=== PATIENT | female | born 1935 | race Caucasian/White ===

== ENCOUNTER → 2016-05-28 | Outpatient (CLI) | payer OTHER ==
[~2016-05-28] MED LIST: ACET1TAB84 PO; AMLH/550 PO; AMLH550 PO; ASPEC81 PO; ASPI-435 PO; CEPH500C2 PO; CHOL100010 PO; CHOL100027 PO; HYDR-5688 PO; LEVO150T9 PO; LISI40TA PO; LOSA50TA6 PO; MULT-506 PO; NRV/10 PO; SIMV20TA2 PO
--- NOTE | 2016-05-28 15:47 | DIAGNOSTIC IMAGING REPORT ---
AP STANDING VIEW BOTH KNEES; 3 VIEWS LEFT KNEE CLINICAL HISTORY: Chronic left knee pain. FINDINGS: An AP standing view of both knees with lateral, tunnel, and sunrise views of the left knee are compared to study dated 04/21/2013. The skeletal structures are osteopenic. No fracture is seen. There is moderate degenerative narrowing seen in the medial and patellofemoral compartments. Mild narrowing is identified in the lateral compartment. There is degenerative beaking of the tibial spine as well as small patellar enthesophytes. No osteochondral defect is identified on the tunnel image. There is a left knee joint effusion with mild surrounding soft tissue edema. Survey images of the right knee on the frontal view show degenerative joint space narrowing in the medial and lateral compartments, with marginal osteophytes and degenerative beaking of the tibial spine. IMPRESSION: 1. Joint effusion and soft tissue swelling. No acute bony abnormality is seen in the left knee. 2. Osteopenia and arthritic change as above. This is similar in appearance to the 04/21/2013 examination. Electronically signed by: Denis Quiros M.D. 05/28/2016 3:45 PM Dictated Date/Time: 05/28/2016 3:43 PM
== END | disposition home or self-care (01) ==
LOC: C.RDSM 13:53
PROVIDERS: ATTEND Physical Medicine & Rehabilitation Sports Medicine
DX: M25.562 Pain in left knee (principal); M25.462 Effusion, left knee; M85.80 Other specified disorders of bone density and structure, unspecified site; M79.89 Other specified soft tissue disorders

== ENCOUNTER 2016-09-03 14:29 | Observation (INO) | payer OTHER ==
[~2016-09-03] VITALS: Ht 162.6 cm; Wt 82.2 kg
[~2016-09-03 14:29] MED LIST changes: -ACET1TAB84 PO; -AMLH/550 PO; -ASPI-435 PO; -CEPH500C2 PO; -CHOL100027 PO; -LEVO150T9 PO; -LOSA50TA6 PO; -MULT-506 PO
[2016-09-03] MEDS ORDERED: ASPIRIN 324 MG CHEW PO STA (14:43)
[2016-09-03] MEDS ORDERED: ASPI-435 PO (14:46)
[2016-09-03] MEDS ORDERED: AMLH/550 PO (14:47)
[2016-09-03] MEDS ORDERED: CHOL100027 PO (14:47)
[2016-09-03 14:52] LABS: BASO % 0.2 %; BASO ABS # 0.02 K/uL (0-0.2); COMPLETE YES; EOS % 2.1 %; HEMATOCRIT 42.6 % (37-47); IG% 0.3 %; LYMPH ABS # 2.93 K/uL (1.2-3.4); MEAN CELL VOLUME 100.5 fL (80-100); MEAN CORPUSCULAR HEMOGLOBIN 34.2 pg (25-34); MEAN PLATELET VOLUME 9.8 fL (7.4-10.4); MONO % 4.5 %; NEUT % 58.9 %; PLATELET COUNT 290 K/uL (130-400); RED BLOOD COUNT 4.24 M/uL (4.2-5.4); WHITE BLOOD COUNT 8.63 K/uL (4.8-10.8)
[2016-09-03 15:02] LABS: PROTHROMBIN TIME (PATIENT) 10.6 SECONDS (9.0-12.0)
--- NOTE | 2016-09-03 15:03 | DIAGNOSTIC IMAGING REPORT ---
CHEST ONE VIEW PORTABLE CLINICAL HISTORY: Atypical chest pain COMPARISON STUDY: 05/24/2010 FINDINGS: The cardiac and mediastinal contours are normal. There is no evidence of focal pulmonary consolidation. There is no evidence of failure. No pleural effusions are visualized.[ IMPRESSION: No active disease in the chest. Electronically signed by: Eze Su M.D. 09/03/2016 3:01 PM Dictated Date/Time: 09/03/2016 3:01 PM
[2016-09-03] MEDS ORDERED: ACET1TAB84 PO (15:09)
[2016-09-03 15:12] LABS: BUN/CREATININE RATIO 22.1 (10-20); CALCIUM 9.6 mg/dl (8.5-10.1); CREATININE 0.83 mg/dl (0.60-1.20); POTASSIUM 3.1 mmol/L (3.5-5.1)
[2016-09-03] MEDS ORDERED: LEVO150T9 PO (15:16)
--- NOTE | 2016-09-03 15:28 | EMERGENCY ROOM VISIT NOTE ---
History Report prepared by Liza: Hetal Dawson Under the Supervision of: Dr. Jin Fox M.D. 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 Denies sob, nausea, lightheadedness or diaphoresis. Denies cardiac hx. Pain now resolved. History of Present Illness The patient is an 80 year old female who presents to the Emergency Room with complaints of resolved chest pain that began approximately 45 minutes prior to arrival. She describes her pain as a tightness. The patient states that her chest pain radiated her back and up into her neck. She denies any pain radiating down her left arm. The patient denies any history of heart problems or previous LA. She states that the chest pain episode lasted approximately 4- 5 minutes. The patient denies any shortness of breath, diaphoresis, or nausea. She states that she feels weak today, but attributes that to not eating today. The patient associates increased ankle edema with her symptoms today. She notes a history of hypertension and high cholesterol, but denies any history of diabetes. The patient denies taking any aspirin today for her symptoms. Source of History: patient Onset: 45 minutes prior to arrival Position: chest Quality: other (tightness) Timing: resolved Associated Symptoms: + weakness, No SOB, No diaphoresis, No nausea Note: Associated Symptoms: increased ankle edema. Review of Systems See HPI for pertinent positives & negatives. A total of 10 systems reviewed and were otherwise negative. Past Medical & Surgical Medical Problems: (1) High cholesterol (2) Hypertension Family History Patient reports no known family medical history. Social History Smoking Status: Never Smoker Alcohol Use: occasionally Drug Use: none Marital Status: Housing Status: lives with significant other Current/Historical Medications Scheduled Amiloride/Hctz (Amiloride/Hydrochlorothia 5-50 mg), 1 TAB PO DAILY Amlodipine Besylate (Amlodipine Besylate), 10 MG PO DAILY Aspirin (Aspirin 81), 81 MG PO DAILY Cholecalciferol (Vitamin D 1000 Unit), 1,000 INTER.UNIT PO DAILY Levothyroxine Sodium (Levothyroxine Sodium), 1 TAB PO DAILY Multivitamin (Multivitamin), 1 TAB PO DAILY Simvastatin (Zocor), 20 MG PO QPM Scheduled PRN Acetaminophen (Tylenol Arthritis Ext Rel), 650 MG PO Q8H PRN for Pain Allergies Coded Allergies: No Known Allergies (Unverified , 04/30/16) Physical Exam Vital Signs Date Time Temp Pulse Resp B/P Pulse Ox O2 Delivery O2 Flow Rate FiO2 09/03/16 14:55 76 09/03/16 14:52 98 Room Air 09/03/16 14:48 97 Room Air 09/03/16 14:35 36.4 80 16 145/77 99 Room Air Physical Exam Constitutional: Vital signs reviewed. Eyes: Pupils are equal round reactive to light. Conjunctiva are noninjected. ENT: Pharynx is clear without erythema or exudate. Mucous membranes are moist. Neck supple without meningeal signs. Respiratory: Clear to auscultation bilaterally. Breath sounds are equal bilaterally. Cardiovascular: Regular rate and rhythm. No rubs or gallops. GI: Soft, nondistended and nontender. Bowel sounds are present. Musculoskeletal: Bilateral ankle edema. No lower extremity tenderness. Integumentary: No cyanosis. Neurological: The patient is awake and alert. No focal deficits. Psychiatric: Normal affect. Medical Decision & Procedures ER Provider Diagnostic Interpretation: X-ray results as stated below per interpretation by me and the radiologist: CHEST ONE VIEW PORTABLE CLINICAL HISTORY: Atypical chest pain COMPARISON STUDY: 05/24/2010 FINDINGS: The cardiac and mediastinal contours are normal. There is no evidence of focal pulmonary consolidation. There is no evidence of failure. No pleural effusions are visualized.[ IMPRESSION: No active disease in the chest. Electronically signed by: Eze Su M.D. 09/03/2016 3:01 PM Dictated Date/Time: 09/03/2016 3:01 PM Laboratory Results 09/03/16 14:40 Red Blood Count 4.24, Mean Corpuscular Volume 100.5, Mean Corpuscular Hemoglobin 34.2, Mean Corpuscular Hemoglobin Concent 34.0, Mean Platelet Volume 9.8, Neutrophils (%) (Auto) 58.9, Lymphocytes (%) (Auto) 34.0, Monocytes (%) ( Auto) 4.5, Eosinophils (%) (Auto) 2.1, Basophils (%) (Auto) 0.2, Neutrophils # ( Auto) 5.08, Lymphocytes # (Auto) 2.93, Monocytes # (Auto) 0.39, Eosinophils # ( Auto) 0.18, Basophils # (Auto) 0.02 09/03/16 14:40 Test 09/03/16 14:40 09/03/16 14:47 White Blood Count 8.63 K/uL (4.8-10.8) Red Blood Count 4.24 M/uL (4.2-5.4) Hemoglobin 14.5 g/dL (12.0-16.0) Hematocrit 42.6 % (37-47) Mean Corpuscular Volume 100.5 fL (80-100) Mean Corpuscular Hemoglobin 34.2 pg (25-34) Mean Corpuscular Hemoglobin Concent 34.0 g/dl (32-36) Platelet Count 290 K/uL (130-400) Mean Platelet Volume 9.8 fL (7.4-10.4) Neutrophils (%) (Auto) 58.9 % Lymphocytes (%) (Auto) 34.0 % Monocytes (%) (Auto) 4.5 % Eosinophils (%) (Auto) 2.1 % Basophils (%) (Auto) 0.2 % Neutrophils # (Auto) 5.08 K/uL (1.4-6.5) Lymphocytes # (Auto) 2.93 K/uL (1.2-3.4) Monocytes # (Auto) 0.39 K/uL (0.11-0.59) Eosinophils # (Auto) 0.18 K/uL (0-0.5) Basophils # (Auto) 0.02 K/uL (0-0.2) RDW Standard Deviation 45.4 fL (36.4-46.3) RDW Coefficient of Variation 12.5 % (11.5-14.5) Immature Granulocyte % (Auto) 0.3 % Immature Granulocyte # (Auto) 0.03 K/uL (0.00-0.02) Prothrombin Time 10.6 SECONDS (9.0-12.0) Prothromb Time International Ratio 1.0 (0.9-1.1) Activated Partial Thromboplast Time 26.3 SECONDS (21.0-31.0) Partial Thromboplastin Ratio 1.0 Anion Gap 7.0 mmol/L (3-11) Est Creatinine Clear Calc Drug Dose 56.1 ml/min Estimated GFR () 77.2 Estimated GFR (Non- 66.6 BUN/Creatinine Ratio 22.1 (10-20) Calcium Level 9.6 mg/dl (8.5-10.1) Bedside Troponin I 0.000 ng/ml (0-0.045) Laboratory results as reviewed by me. Medications Administered Medications (Trade) Dose Ordered Sig/Yaquelin Route Start Time Stop Time Status Last Admin Dose Admin Aspirin (Aspirin Chew) 324 mg NOW STAT PO 09/03/16 14:43 09/03/16 14:44 DC 09/03/16 14:51 324 MG ECG Indication: chest pain Rate (beats per minute): 72 Rhythm: normal sinus Findings: no ectopy, other (T wave flattening in leads V1-V3) ED Course 1439: The patient was evaluated in room A11B. A complete history and physical exam was performed. 1443: Ordered Aspirin 324 mg PO. 1518: I reevaluated the patient and she is currently chest pain free. I discussed all the exam findings with her and I discussed the treatment plan. She verbalized complete understanding and agreement. She is going to be evaluated for further treatment. 1520: I discussed the patient's case with Dr. Moreno [facility]. He is going to evaluate the patient for further treatment. Medical Decision This is an 80-year-old female who presents with chest pain. Differential diagnosis includes unstable angina, LA, pleurisy, anxiety, GERD. I did perform a limited focused review of portions of the patient's old chart on the electronic medical record. The patient has had no recent pertinent visits to this hospital. I did evaluate the patient as noted above. The patient is presenting with an episode of chest pain which she describes as a tightness in the middle of her chest radiated into her neck. She was nauseated with it but denies any shortness of breath. She is currently chest pain-free. I did treat her with aspirin. IV access was established. 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 I did order and personally review the patient's 12-lead EKG and chest x-ray as described above. She has some flattening of her T waves in leads V1 to V3. I did order and review the patient's blood work as noted in the electronic medical record. Troponin is negative. I did reassess the patient. She is not having any chest discomfort at this time. I did discuss the test results with her. I did recommend hospitalization for repeat cardiac enzymes and further evaluation. I did discuss case with the hospitalist and disability case manager. Consults Time Called: 1518 Consulting Physician: MEL Bobby Returned Call: 1520 I discussed the patient's case with MEL Alvarado. He is going to evaluate the patient for further treatment. Impression Primary Impression: Precordial chest pain Scribe Attestation The scribe's documentation has been prepared under my direct and personally reviewed by me in its entirety. I confirm that the note above accurately reflects all work, treatment, procedures, and medical decision making performed by me. Departure Information Dispostion Being Evaluated By Hospitalist Referrals Nate Rosen M.D. (PCP)
[2016-09-03] MEDS ORDERED: MULT-506 PO (16:21)
[2016-09-03] MEDS ORDERED: ONDANSETRON INJ 2 MG/ML 2 ML VIAL IV PRN (16:30)
[2016-09-03] MEDS ORDERED: MAGNESIUM HYDROXIDE SUSP 30 ML UDC PO PRN (16:30)
[2016-09-03] MEDS ORDERED: NITROGLYCERIN 0.4 MG SL PER TAB CHARGE SL PRN (16:30)
[2016-09-03] MEDS ORDERED: ALUMINUM/MAGNESIUM/SIMETH (MAALOX MAX) 30 ML UDC PO PRN (16:30)
[2016-09-03] MEDS ORDERED: HydrALAZINE HCL 20 MG/ML VIAL IV PRN (17:15)
[2016-09-03 17:25] VITALS: BP 131/66; PULSE 74; TEMP 36.4; O2SAT 98; Ht 162.6 cm; Wt 82.2 kg
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
[2016-09-03] MEDS ORDERED: IV FLUIDS COMPLETED PRN (18:00)
[2016-09-03] MEDS: POTASSIUM CHLORIDE 20 MEQ TABCR PO SCH ×2 (19:05→21:17)
[2016-09-03 19:24] VITALS: BP 127/74; PULSE 74; TEMP 36.7; O2SAT 98
[2016-09-03] MEDS ORDERED: SIMVASTATIN 20 MG TAB PO SCH (21:00)
[2016-09-03 23:37] VITALS: BP 118/76; PULSE 69; TEMP 36.8; O2SAT 96
[2016-09-04 03:24] VITALS: BP 106/65; PULSE 70; TEMP 36.5; O2SAT 97
[2016-09-04] MEDS: LEVOTHYROXINE 150 MCG TAB PO SCH ×2 (05:47→10:10)
[2016-09-04 06:58] LABS: MEAN CORPUSCULAR HEMOGLOBIN 32.8 pg (25-34); MEAN CORPUSCULAR HGB CONC 32.8 g/dl (32-36); MEAN PLATELET VOLUME 9.7 fL (7.4-10.4); PLATELET COUNT 266 K/uL (130-400); WHITE BLOOD COUNT 7.21 K/uL (4.8-10.8)
[2016-09-04 07:17] VITALS: BP 123/64; PULSE 71; TEMP 36.5; O2SAT 94
[2016-09-04 07:31] LABS: BLOOD UREA NITROGEN 20 mg/dl (7-18); BUN/CREATININE RATIO 26.2 (10-20); CALCIUM 8.8 mg/dl (8.5-10.1); CARBON DIOXIDE 30 mmol/L (21-32); CHLORIDE 109 mmol/L (98-107); CREATININE 0.75 mg/dl (0.60-1.20); GLUCOSE 92 mg/dl (70-99); POTASSIUM 3.3 mmol/L (3.5-5.1); SODIUM 146 mmol/L (136-145)
[2016-09-04 08:00] VITALS: O2SAT 94
[2016-09-04] MEDS ORDERED: ASPIRIN 81 MG ECTAB PO SCH (09:00)
[2016-09-04] MEDS ORDERED: ASPIRIN 325 MG ECTAB PO SCH (09:00)
[2016-09-04] MEDS ORDERED: AMLODIPINE BESYLATE 10 MG PO SCH (09:00)
[2016-09-04] MEDS ORDERED: AMILORIDE/HCTZ 5-50 MG TAB PO SCH (09:00)
[2016-09-04] MEDS ORDERED: CHOLECALCIFEROL 1000 INTER.UNIT TAB PO SCH (09:00)
[2016-09-04] MEDS ORDERED: MULTIVITAMIN TAB PO SCH (09:00)
--- NOTE | 2016-09-04 09:48 | Discharge Instructions ---
Discharge Instructions Date of Service September 04, 2016. Admission Reason for Admission: Precordial Chest Pain Discharge Discharge Diagnosis / Problem: non cardiac chest pain Discharge Goals Goal(s): Diagnostic testing, Therapeutic intervention Activity Recommendations Activity Limitations: resume your previous activity . Current Hospital Diet Patient's current hospital diet: AHA Diet (Heart Healthy) Discharge Diet Recommended Diet: Regular Diet Pending Studies Studies pending at discharge: no Medical Emergencies . Who to Call and When: Medical Emergencies: If at any time you feel your situation is an emergency, please call 911 immediately. . Non-Emergent Contact Non-Emergency issues call your: Primary Care Provider . . "Provider Documentation" section prepared by Jin Spivey. . VTE Core Measure Inpt VTE Proph given/why not?: Treatment not indicated
[2016-09-04] MEDS: POTASSIUM CHLORIDE 20 MEQ TABCR PO SCH (10:10)
[2016-09-04 11:00] VITALS: BP 118/62; PULSE 76; TEMP 36.8; O2SAT 98
[2016-09-04 12:00] VITALS: O2SAT 94
[2016-09-04 12:03] VITALS: BP 118/62; PULSE 76; TEMP 36.8; O2SAT 98
--- NOTE | 2016-09-04 12:19 | EXERCISE STRESS ECHO ---
*NOTICE TO RECEIVING [employer]Y This information is strictly Confidential and protected under [place] law. [place] law prohibits you from making any further disclosure of this information unless further disclosure is expressly permitted by the written consent of the person to whom it pertains or is authorized by law. A general authorization for the release of medical or other information is not sufficient for this purpose. Hospital accepts no responsibility if the information is made available to any other person, INCLUDING THE PATIENT. Interpretation Summary * Name: MATILDE CARLIN Study Date: 09/04/2016 08:23 AM BP: 140/63 mmHg * Patient Location: 34 HR: 72 * : 1935 (M/d/yyyy) Gender: Female Height: 64 in * Age: 80 yrs Ethnicity: CA Weight: 181 lb * Ordering Physician: Jin Spivey * Referring Physician: Self, Referred * Performed By: Loy Gonzalez RCS * * Reason For Study: Chest Pain * BSA: 1.9 m2 * -- Conclusions -- * Normal stress echocardiogram at 6.4 METS and a peak heart rate of 90% maximum predicted. * No exercise induced chest pain. * No ECG changes. * Baseline echocardiogram notes normal left ventricular systolic function and evidence of diastolic dysfunction. Procedure Details * ECHOEX, CPT #[id number] * ECHO COLOR FLOW, CPT #[id number] * ECHO DOPPLER, CPT #[id number] Left Ventricle * The left ventricle is normal in size. * There is borderline concentric left ventricular hypertrophy. * Ejection Fraction = 60-65%. * Left ventricular systolic function is normal. * Resting wall motion: Normal. Stress wall motion: Appropriate increase in Left ventricular systolic function and decrease in cavity size. No stress induced segmental wall motion abnormalities. Right Ventricle * The right ventricle is normal size. * The right ventricular systolic function is normal as assessed by tricuspid annular plane systolic excursion (TAPSE) (normal >1.5 cm). Atria * The left atrial size is normal. * Right atrial size is normal. * No ASD detected; PFO is not assessed. Mitral Valve * The mitral valve is grossly normal. * There is no mitral valve stenosis. * There is trace mitral regurgitation. Tricuspid Valve * The tricuspid valve is not well visualized, but is grossly normal. * There is no tricuspid stenosis. * Significant tricuspid regurgitation is absent. Aortic Valve * The aortic valve is trileaflet. * The aortic valve opens well. * Aortic valve sclerosis mild, without significant aortic valvular stenosis. * Trace aortic regurgitation. Pulmonic Valve * The pulmonic valve is not well visualized. Great Vessels * The aortic root is normal size. * The pulmonary is not well visualized. Pericardium * There is no pericardial effusion. Stress Parameters * Normal baseline electrocardiogram. * Stress ECG: No ST changes. No arrhythmias. * The stress portion of this study was personally supervised by the undersigned interpreting physician. * Rest heart rate was '72' BPM. * Rest blood pressure was '140/63' * Maximum heart rate achieved was 127 bpm. * Maximum heart rate was 90 % of maximum age-predicted heart rate. * Maximum blood pressure was '179/65' * Total exercise time was '4:34' * Maximum exercise MET level achieved was '6.4' METS * Maximum treadmill speed was '2.5' miles per hour. * Maximum treadmill elevation was '12'% grade. * Normal blood pressure response to exercise. Left Ventricular Diastolic Function * Grade I diastolic dysfunction, (abnormal relaxation pattern). MMode 2D Measurements and Calculations IVSd 0.95 cm IVSs 1.3 cm LVIDd 3.9 cm LVIDs 2.6 cm LVPWd 0.98 cm LVPWs 1.3 cm IVS/LVPW 0.96 FS 33.9 % EDV(Teich) 66.7 ml ESV(Teich) 24.4 ml EF(Teich) 63.4 % EDV(cubed) 60.3 ml ESV(cubed) 17.4 ml EF(cubed) 71.1 % % IVS thick 36.7 % % LVPW thick 30.7 % LV mass(C)d 117.2 grams LV mass(C)dI 62.5 grams/m\S\2 LV mass(C)s 101.4 grams LV mass(C)sI 54.1 grams/m\S\2 CO(Teich) 2.8 l/min CI(Teich) 1.5 l/min/m\S\2 SV(Teich) 42.3 ml SI(Teich) 22.6 ml/m\S\2 CO(cubed) 2.9 l/min CI(cubed) 1.5 l/min/m\S\2 SV(cubed) 42.8 ml SI(cubed) 22.8 ml/m\S\2 Ao root diam 3.1 cm Ao root area 7.4 cm\S\2 ACS 1.5 cm LA dimension 3.0 cm LA/Ao 0.99 LVAd ap4 29.8 cm\S\2 LVLd ap4 8.8 cm EDV(MOD-sp4) 83.0 ml LVAs ap4 16.6 cm\S\2 LVLs ap4 7.2 cm ESV(MOD-sp4) 31.0 ml EF(MOD-sp4) 62.7 % LVAd ap2 26.4 cm\S\2 LVLd ap2 8.6 cm EDV(MOD-sp2) 66.0 ml LVAs ap2 12.8 cm\S\2 LVLs ap2 6.8 cm ESV(MOD-sp2) 21.0 ml EF(MOD-sp2) 68.2 % CO(MOD-sp4) 3.5 l/min CI(MOD-sp4) 1.9 l/min/m\S\2 SV(MOD-sp4) 52.0 ml SI(MOD-sp4) 27.7 ml/m\S\2 CO(MOD-sp2) 3.0 l/min CI(MOD-sp2) 1.6 l/min/m\S\2 SV(MOD-sp2) 45.0 ml SI(MOD-sp2) 24.0 ml/m\S\2 Doppler Measurements and Calculations MV E max lauren 75.5 cm/sec MV A max lauren 108.6 cm/sec MV E/A 0.70 MV P1/2t max lauren 78.5 cm/sec MV P1/2t 93.6 msec MVA(P1/2t) 2.4 cm\S\2 MV dec slope 245.6 cm/sec\S\2 MV dec time 0.26 sec Ao V2 max 117.3 cm/sec Ao max PG 5.5 mmHg Ao max PG (full) 0.30 mmHg LV V1 max PG 5.2 mmHg LV V1 max 114.0 cm/sec PA V2 max 79.8 cm/sec PA max PG 2.5 mmHg PI max lauren 131.4 cm/sec PI max PG 6.9 mmHg PI dec slope 116.8 cm/sec\S\2 PI P1/2t 329.4 msec TR max lauren 255.2 cm/sec
--- NOTE | 2016-09-04 14:25 | Discharge Summary ---
Discharge Summary Date of Service September 04, 2016. Discharge Summary Admission Date: September 03, 2016 at 16:23 Discharge Date: September 04, 2016 Discharge Disposition: Home Principal Diagnosis: non cardiac chest pain Procedures: stress echo negative for ischemia Medication Reconciliation Continued Medications: Acetaminophen (Tylenol Arthritis Ext Rel) 650 Mg Cplt 650 MG PO Q8H PRN for Pain, CAP Amiloride/Hctz (Amiloride/Hydrochlorothia 5-50 mg) 1 Ea Tab 1 TAB PO DAILY Amlodipine Besylate (Amlodipine Besylate) 10 Mg Tab 10 MG PO DAILY, #90 Aspirin (Aspirin 81) 81 Mg Tab 81 MG PO DAILY Cholecalciferol (Vitamin D 1000 Unit) 1,000 Unit Cap 1000 INTER.UNIT PO DAILY, CAP Levothyroxine Sodium (Levothyroxine Sodium) 150 Mcg Tab 1 TAB PO DAILY Multivitamin (Multivitamin) Tab 1 TAB PO DAILY, 0 Refills Simvastatin (Zocor) 20 Mg Tab 20 MG PO QPM Discharge Exam Review of Systems: Constitutional: No chills, No fever Respiratory: No cough, No dyspnea on exertion, No shortness of breath Cardiovascular: No chest pain, No edema Abdomen: No diarrhea, No nausea, No pain, No vomiting Physical Exam: General Appearance: WD/WN, no apparent distress Eyes: PERRL, EOMI Neck: supple, no JVD Neurologic/Psychiatric: alert, oriented x 3 Skin: normal color, warm/dry Hospital Course 80 F with negative cardiac enzymes, negative telemetry and negative stress test suspecting symptoms were of a GI origin, pt will follow up with PCP Total Time Spent: Greater than 30 minutes This includes examination of the patient, discharge planning, medication reconciliation, and communication with other providers. Discharge Instructions Please refer to the electronic Patient Visit Report (Discharge Instructions) for additional information.
[2016-10-23] MEDS ORDERED: LOSA50TA6 PO (09:16)
[2016-11-04] MEDS ORDERED: HYDR-5688 PO (11:49)
[2016-11-04] MEDS ORDERED: CEPH500C2 PO (11:49)
== END 2016-09-04 12:20 | disposition home or self-care (01) ==
LOC: ENRESERVTM → ENRESERVDT → C.EDB 14:30 → C.2T 16:23
PROVIDERS: ADMIT Internal Medicine; ATTEND Internal Medicine
DX: R07.89 Other chest pain (principal); I10 Essential (primary) hypertension; E78.5 Hyperlipidemia, unspecified; E03.9 Hypothyroidism, unspecified; Z79.82 Long term (current) use of aspirin; Z87.891 Personal history of nicotine dependence; Z83.3 Family history of diabetes mellitus; Z79.899 Other long term (current) drug therapy

== ENCOUNTER → 2016-09-09 | Outpatient (CLI) | payer OTHER ==
[~2016-09-09] MED LIST changes: +ACET1TAB84 PO; +AMLH/550 PO; -AMLH550 PO; -ASPEC81 PO; +ASPI-435 PO; +CEPH500C2 PO; -CHOL100010 PO; +CHOL100027 PO; +LEVO150T9 PO; -LISI40TA PO; +LOSA50TA6 PO; +MULT-506 PO
--- NOTE | 2016-09-09 14:26 | MAMMOGRAPHY REPORT ---
UNILATERAL RIGHT DIGITAL DIAGNOSTIC MAMMOGRAM TOMOSYNTHESIS WITH CAD AND TARGETED RIGHT ULTRASOUND: 09/09/2016 CLINICAL HISTORY: Follow-up of right breast masses and microcalcifications. 3 masses in the upper o uter quadrant of the right breast appeared to have been stable dating back to 07/02/2007 and likely also 2005 based on prior available screen-film mammograms. TECHNIQUE: Right CC and MLO 2-D digital and tomosynthesis images, spot magnification right CC and M L views were obtained. Current study was also evaluated with a Computer Aided Detection (CAD) carole small. COMPARISON: Comparison is made to exams dated: 03/12/2016 ultrasound, 03/12/2016 mammogram - [facility], and 07/02/2007. BREAST COMPOSITION: There are scattered areas of fibroglandular density in the right breast. FINDINGS: Spot magnification views of the right breast demonstrate punctate microcalcifications mt uped and in a linear distribution in the upper outer middle one third of the breast, measuring 16 mm in AP dimension. These do not appear significantly changed in number or distribution comparing to the prior spot magnification views performed on 03/12/2016, but were not definitely seen on the prio r 2006 and 2007 mammograms. These might or calcifications are indeterminate, given the linear distr ibution and definitive characterization with tissue sampling is recommended. Again seen are 3 masses within the upper outer quadrant of the right breast, middle and posterior on e third of the breast. All of the masses appear similar to the prior 2007 and 2005 mammograms. How ever, when measuring based on the tomosynthesis images, the middle mass appears larger measuring 17 x 12 x 8 mm. The posterior mass measures 5.3 x 8.9 x 6.6 mm, and the anterior mass measures 12.0 x 5.7 x 6.0 mm. There is possible associated architectural distortion with the anterior mass on the C C tomosynthesis slice 10. No definite associated microcalcification. No other obvious new mass, fo avinash area of architectural distortion or suspicious microcalcifications are seen. Repeat targeted ultrasound was performed in the 8:30 axis of the right breast. In the far lateral 8 :00 axis, 15 cm from the nipple, a morphologically normal lymph node is identified, measuring 4.8 x 4.5 mm. An isoechoic solid lobulated mass is identified in the 8:30 right breast, 10 cm from the ni pple, measuring 4.4 x 3.9 x 7.2 mm, previously 4.7 x 4.2 x 5.8 mm. A multilobulated mixed solid and cystic mass, possibly intraductal, is identified in the 8:30 right breast, 9 cm from the nipple, me asuring 9.4 x 6.0 x 15.5 mm. This previously measured 10.5 x 7.2 x 16.1 mm. In the 8:[address], 5 cm from the nipple, a multilobulated hypoechoic solid versus cystic mass is again seen measuri ng 7.7 x 3.4 x 9.5 mm, previously 7.2 x 5.0 x 3.7 mm. Ultrasound-guided core needle biopsy is recommended for the anterior mass which appears larger based on sonographic measurements and now has possible associated architectural distortion mammographical ly, located in the 8:30 right breast approximately 5 cm from the nipple. Ultrasound-guided core bio psy is also recommended for the dominant mixed solid and cystic mass in the 8:30 right breast, 9 cm from the nipple which is possibly an intraductal mass. IMPRESSION: ACR BI-RADS CATEGORY 4B: INTERMEDIATE SUSPICION FOR MALIGNANCY, TARGETED ULTRASOUND ACR BI-RADS CATEGORY 4B: INTERMEDIATE SUSPICION FOR MALIGNANCY 1. Ultrasound guided core needle biopsy is recommended for 2 solid masses in the 8:30 right breast located 9 cm and 5 cm from the nipple. Although all 3 masses in the right upper outer quadrant have been present and appear generally stable in size mammographically dating back to 2007 and likely 22 10, there are subtle changes appreciated on the current tomosynthesis images. Therefore, tissue indra pling is recommended. 2. Right breast stereotactic guided biopsy is recommended for punctate microcalcifications in a shanell ear distribution in the right upper outer quadrant (1 hour 45 minutes). These results and recommendations were discussed with the patient at the time of the exam. She tent atively scheduled the right breast biopsies prior to leaving our department. Approximately 10% of breast cancers are not detected with mammography. A negative mammographic repor t should not delay biopsy if a clinically suggestive mass is present. Essence Herring M.D. ay/:09/09/2016 12:21:26 Regulatory Compliance Manager: Ashley Mccallum, [facility] letter sent: Abnormal 4/5 BI-RADS Code: ACR BI-RADS Category 4B: Intermediate Suspicion For Malignancy Ultrasound BI-RADS: AC R BI-RADS Category 4B: Intermediate Suspicion For Malignancy
== END | disposition home or self-care (01) ==
LOC: C.MAMM 10:27
PROVIDERS: ATTEND Family Medicine
DX: N63 Unspecified lump in breast (principal); R92.0 Mammographic microcalcification found on diagnostic imaging of breast

== ENCOUNTER → 2016-09-25 | Outpatient (CLI) | payer OTHER ==
--- NOTE | 2016-09-25 13:26 | Discharge Instructions ---
Discharge Instructions Procedure Procedure Date: September 25, 2016. Reason for visit: Right Calsc/Right Masses (Us Bx). Discharge Discharge Date: September 25, 2016. Discharge Diagnosis: status post breast biopsy Instructions Activity Recommendations: Additional Limitations (see below) Return to School/Work: no limitations Recommended Home Diet: No Limitations Provider Instructions: ACTIVITY RECOMMENDATIONS: * No lifting, pushing, pulling or exercising the affected side for three days. RETURN TO SCHOOL/WORK: * You may return to work/school after the procedure, but do not perform any strenuous activities for 24 to 48 hours. MEDICATIONS: * Tylenol (two 325 mg) every four to six hours if needed for mild pain (if not allergic to Tylenol). DIET: * Resume previous diet. SPECIAL CARE INSTRUCTIONS: * Keep biopsy site dry for 24 hours. May shower after 24 hours, but do not soak (bathe) incision. * May remove Tegaderm (plastic patch) tomorrow AFTER showering. * Leave the steri-strips on for one week. Allow the steri-strips to fall off by themselves. If not off after one week, you may remove them. You may place a Bandaid crosswise over the strips, if desired. * Apply ice 10 minutes on and 10 minutes off as needed. * Wear a bra at bedtime to sleep more comfortably for 2-3 days. * Your referring physician should have the results after approximately 5 to 7 business days. * Call for unusual bleeding, fever, drainage, etc or if you have any questions call during normal business hours or after hours call Dr Bone, . FOLLOW UP VISIT: Follow-up with Referring Physician as scheduled. Allergies Coded Allergies: No Known Allergies (Unverified , 04/30/16) Roxi Veras Recommendations: Call your doctor if: * Temperature above 101 degrees * Pain not relieved by pain medicine ordered * There is increased drainage or redness from any incision * You have any unanswered questions or concerns. Your Doctors Instructions noted above were prepared by provider Keke Bone. Patient Signature Section: Patient Instructions Signature Page Kandi Hardy Patient (or Guardian) Signature/Date: I have read and understand the instructions given to me by my caregivers. Caregiver/RN/Doctor Signature/Date: The above-named patient and/or guardian has received patient instructions on this date. + Original Patient Signature Page (only) stays with chart. Please make copy for patient.
--- NOTE | 2016-09-25 15:10 | MAMMOGRAPHY REPORT ---
STEREOTACTIC GUIDED BIOPSY RIGHT BREAST: 09/25/2016 CLINICAL HISTORY: Right upper outer quadrant calcifications. PATIENT CONSENT: The procedure, risks, benefits, and alternatives of stereotactic biopsy with clip p lacement were discussed with the patient, and verbal and written consent was obtained. A timeout wa s performed immediately prior to the procedure. PROCEDURE DESCRIPTION: With stereotactic guidance, aseptic technique, and lidocaine as a local anest hetic (1% lidocaine to anesthetize the skin and 1% lidocaine with epinephrine to anesthetize the galo per tissues), the area of concern was sampled multiple times with a 9-gauge vacuum-assisted biopsy n eedle (Suros Eviva). The path of approach was craniocaudal. The specimen radiograph demonstrates c alcifications to be present in the samples. The samples containing calcifications (labeled "A") wer e from the samples without calcifications (labeled "B"). A metallic marker clip was place d at the biopsy site. This was confirmed on postprocedure mammograms. Direct pressure was applied at the biopsy site and hemostasis was readily achieved. The patient tolerated the procedure without complication. She was given wound care instructions. COMPARISON: Comparison is made to exams dated: 09/09/2016 ultrasound, 09/09/2016 mammogram, 03/12/2016 u ltrasound, 03/12/2016 mammogram - [facility], and 07/02/2007. IMPRESSION: STEREOTACTIC GUIDED BIOPSY Stereotactic biopsy of indeterminate calcifications in the right upper outer quadrant, with clip esdras cement. The patient will receive pathology results from her referring provider. Keke Bone M.D. /:09/25/2016 13:30:12 Coding Manager: Ashley Mccallum, [facility]
--- NOTE | 2016-09-25 15:11 | MAMMOGRAPHY REPORT ---
THIS REPORT HAS BEEN AMENDED. AMENDMENT: 10/02/2016 Keke Bone M.D. The pathology from right breast biopsies was reviewed on 10/02/2016. The pathology of stereotactic b iopsy of right upper outer quadrant calcifications yielded benign breast tissue with microcalcificat ions, which is concordant with the imaging findings. The pathology of biopsy of 2 masses in the rig ht 8:30 breast (9 and 5 cm from nipple) yielded atypical ductal proliferations, and excisional biops y was recommended by the pathologist. A third mass was also seen in the right breast at 8:30, 10 cm from the nipple, during the diagnostic workup which was not biopsied but appears similar to the 2 b iopsied masses. Recommend surgical excision of all 3 masses. ULTRASOUND GUIDED BIOPSY RIGHT BREAST: 09/25/2016 CLINICAL HISTORY: Right 8:30 breast mass, 5 cm from the nipple. PATIENT CONSENT: The procedure, risks and benefits were discussed with the patient and informed writ ten consent was obtained. A timeout was performed immediately prior to the procedure. PROCEDURE DESCRIPTION: With ultrasound guidance, aseptic technique, and lidocaine as the local anest hetic (1% lidocaine to anesthetize the skin and 1% lidocaine with epinephrine to anesthetize the galo per tissues), the mass of concern in the right breast at 8:30, 5 cm from the nipple (labeled mass "B "), was sampled 4 times with a 14-gauge achieve biopsy needle. Direct pressure was applied to the s ite immediately post procedure and hemostasis was achieved. Immediately thereafter, with ultrasound guidance, aseptic technique, and lidocaine as the local anesthetic, a metallic localizer clip (wing -shaped) was placed centrally in the mass. Direct pressure was applied to the site immediately post procedure and hemostasis was achieved. Postprocedure unilateral mammograms were performed to confi rm placement of the clip in the expected location of the breast mass. The patient tolerated the pro cedure without complication. She was given wound care instructions. The specimens were sent to [facility] for analysis. COMPARISON: Comparison is made to exams dated: 09/25/2016 ultrasound biopsy, 09/25/2016 mammogram, 09/09/2016 mammogram, and 03/12/2016 mammogram - [facility]. IMPRESSION: ULTRASOUND GUIDED BIOPSY Ultrasound-guided core needle biopsy of the right 8:30 breast mass, 5 cm from the nipple (mass "B"). The patient will receive pathology results from her referring provider. Keke Bone M.D. ah/:09/25/2016 14:43:25 Communications Programmer: Ashley Mccallum, [facility]
--- NOTE | 2016-09-25 15:11 | MAMMOGRAPHY REPORT ---
UNILATERAL RIGHT DIGITAL DIAGNOSTIC MAMMOGRAM TOMOSYNTHESIS: 09/25/2016 CLINICAL HISTORY: Status post right breast biopsies. TECHNIQUE: Breast tomosynthesis in addition to standard 2D mammography was performed. Right CC and ML 2-D and tomosynthesis images were obtained. COMPARISON: Comparison is made to exams dated: 09/09/2016 mammogram, 09/09/2016 ultrasound, 03/12/2016 u ltrasound, and 03/12/2016 mammogram - [facility]. BREAST COMPOSITION: There are scattered areas of fibroglandular density in the right breast. FINDINGS: A preprocedural right CC 2-D view was obtained for biopsy planning purposes. Postprocedu ral right CC and ML tomosynthesis images including C views were obtained, which shows new biopsy mar ker clips at the site of the two biopsied masses in the right breast at 8:30. The ribbon-shaped clip is located at the site of the right 8:30 breast mass, 9 cm from the nipple, while the wing-shaped c lip is located at the site of the right 8:30 breast mass, 5 cm from the nipple. Another biopsy eddie er clip is seen at the site of the biopsied calcifications in the right upper and slightly lateral b reast. No significant postbiopsy hematoma is seen. IMPRESSION: POST PROCEDURE IMAGING FOR MARKER PLACEMENT New biopsy marker clips status post ultrasound-guided biopsies 2 and stereotactic biopsy of the rig ht breast. Pathology results are pending. Approximately 10% of breast cancers are not detected with mammography. A negative mammographic repor t should not delay biopsy if a clinically suggestive mass is present. Keke Bone M.D. /:09/25/2016 14:25:43 Monogram Maker: Ashley Mccallum, [facility] BI-RADS Code: Post Procedure Imaging For Marker Placement
--- NOTE | 2016-09-25 15:11 | MAMMOGRAPHY REPORT ---
ULTRASOUND GUIDED BIOPSY RIGHT BREAST: 09/25/2016 CLINICAL HISTORY: Right 8:30 breast mass, 9 cm from the nipple. PATIENT CONSENT: The procedure, risks and benefits were discussed with the patient and informed writ ten consent was obtained. A timeout was performed immediately prior to the procedure. PROCEDURE DESCRIPTION: With ultrasound guidance, aseptic technique, and lidocaine as the local anest hetic (1% lidocaine to anesthetize the skin and 1% lidocaine with epinephrine to anesthetize the galo per tissues), the mass of concern in the right 8:30 breast, 9 cm from the nipple (labelled mass "A") , was sampled 4 times with a 14-gauge Achieve biopsy needle. Immediately thereafter, with ultraso und guidance, aseptic technique, and lidocaine as the local anesthetic, a metallic localizer clip (r ibbon-shaped) was placed centrally in the mass. Direct pressure was applied to the site immediately post procedure and hemostasis was achieved. Postprocedure unilateral mammograms were performed to confirm placement of the clip in the expected location of the breast mass. The patient tolerated th e procedure without complication. She was given wound care instructions. The specimens were sent to pathology for analysis. COMPARISON: Comparison is made to exams dated: 09/09/2016 ultrasound, 09/09/2016 mammogram, 03/12/2016 u ltrasound, 03/12/2016 mammogram - [facility], and 07/02/2007. IMPRESSION: ULTRASOUND GUIDED BIOPSY Ultrasound guided core needle biopsy of the right 8:30 breast mass, 9 cm from the nipple (mass "A"), with clip placement. The patient will receive pathology results from her referring provider. Keke Bone M.D. /:09/25/2016 14:11:15 Radar Air Traffic Controller: Ashley Mccallum, [facility]
== END | disposition home or self-care (01) ==
LOC: C.MAMM 12:47
PROVIDERS: ATTEND Family Medicine
DX: R92.0 Mammographic microcalcification found on diagnostic imaging of breast (principal); N63 Unspecified lump in breast; N60.81 Other benign mammary dysplasias of right breast

== ENCOUNTER 2016-11-04 07:40 | Observation (INO) | payer OTHER ==
[~2016-11-04] VITALS: Ht 162.6 cm; Wt 81.1 kg
[2016-11-04] VITALS (8 sets, daily range): BP systolic 103–144; BP diastolic 57–73; PULSE 72–93; TEMP 36.5–36.7; O2SAT 91–96; Ht 162.6 cm; Wt 81.1 kg
[~2016-11-04 07:40] MED LIST changes: +ATROPINE SULFATE 0.1 MG/ML 5ML SYR IV PRN; +CEFAZOLIN 2000 MG/60 ML D5W IV SCH; -CEPH500C2 PO; +EpHEDrine SULFATE INJ 50 MG/ML AMP IV PRN; +FENTANYL CITRATE INJ 50 MCG/1 ML 2 ML VIAL IV PRN; -HYDR-5688 PO; +HYDROmorphone INJ 1 MG/ML SYR IV PRN; +LACTATED RINGER'S 1000ML 1,000 ML IV SCH; -NRV/10 PO; +ONDANSETRON INJ 2 MG/ML 2 ML VIAL IV PRN
[2016-11-04] MEDS ORDERED: BUPIVACAINE 0.5 % 5 MG/1 ML MPF 30ML VIAL ONE (09:25)
[2016-11-04] MEDS ORDERED: ISOSULFAN BLUE 10 MG/ML VIAL 5 ML ONE (09:25)
[2016-11-04] MEDS ORDERED: PROPOFOL IV EMULSION 10 MG/ML 20 ML VIAL IV ONE (09:41)
[2016-11-04] MEDS ORDERED: LIDOCAINE HCL 2% 2 ML VIAL (20MG/ML) ONE (09:41)
[2016-11-04] MEDS ORDERED: FENTANYL CITRATE INJ 50 MCG/1 ML 2 ML VIAL ONE ×2 (09:41→11:03)
--- NOTE | 2016-11-04 09:52 | History & Physical Bridge Note ---
H&P Re-Evaluation Bridge Note: I have examined the patient, reviewed the History & Physical and in the interval since the performance of the History & Physical I have noted the following changes of clinical significance: No changes noted
[2016-11-04] MEDS ORDERED: EpHEDrine SULFATE INJ 50 MG/ML AMP ONE (10:20)
[2016-11-04] MEDS ORDERED: ONDANSETRON INJ 2 MG/ML 2 ML VIAL ONE (10:20)
[2016-11-04] MEDS ORDERED: LACTATED RINGER'S 1000ML 1,000 ML IV SCH (11:42)
[2016-11-04] MEDS ORDERED: MoRPHine SULFATE 4 MG/ML 1 ML CARP\\VIAL IV PRN (11:45)
[2016-11-04] MEDS ORDERED: ONDANSETRON INJ 2 MG/ML 2 ML VIAL IV PRN (11:45)
[2016-11-04] MEDS ORDERED: HYDROCODONE/ACETAMOPHEN 5/325MG TAB PO PRN ×2 (11:45)
[2016-11-04] MEDS ORDERED: MoRPHine SULFATE 2 MG/ML CARP IV PRN (11:45)
[2016-11-04] MEDS ORDERED: DEXAMETHASONE SOD INJ 4 MG/ML VIAL ONE (11:46)
[2016-11-04] MEDS ORDERED: CEPH500C2 PO (11:49)
[2016-11-04] MEDS ORDERED: HYDR-5688 PO (11:49)
--- NOTE | 2016-11-04 11:52 | Discharge Instructions ---
Discharge Instructions Date of Service Nov 04, 2016. Admission Reason for Admission: Abnormal Mammogram -Right Breast W/Hosp Loc Discharge Discharge Diagnosis / Problem: atypia Rt breast Discharge Goals Goal(s): Decrease discomfort, Improve function, Improve disease control Activity Recommendations Activity Limitations: as noted below Lifting Limitations: no more than 25 pounds Exercise/Sports Limitations: until after follow-up appointment May Resume Sexual Activity: when tolerated Shower/Bathe: tomorrow Driving or Machine Use: resume 3 days after discharge SPECIAL CARE INSTRUCTIONS: * Cover incisions and change daily for comfort/drainage. * May use ibuprofen for pain as tolerated. * Expect some swelling and bruising. Call your doctor if: * Temperature above 101 degrees * Pain not relieved by pain medicine ordered * There is increased drainage or redness from any incision * You have any unanswered questions or concerns [phone]. FOLLOW UP VISIT: If not already scheduled, please call the office for a follow-up visit. for next week- some suture removal OFFICE PHONE NUMBER: Dr. Hewitt Office . Current Hospital Diet Patient's current hospital diet: Regular Diet Discharge Diet Recommended Diet: Regular Diet Procedures Procedures Performed: Right breast biopsy with needle localization Pending Studies Studies pending at discharge: no Medical Emergencies . Who to Call and When: Medical Emergencies: If at any time you feel your situation is an emergency, please call 911 immediately. . Non-Emergent Contact Non-Emergency issues call your: Primary Care Provider, Surgeon . "Provider Documentation" section prepared by Dheeraj Hewitt. . VTE Core Measure Inpt VTE Proph given/why not?: SCD's
--- NOTE | 2016-11-04 12:04 | [facility] Operative Report ---
Operative Report Operative Date Nov 04, 2016. 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 additional lateral tissue - methyline blue reyes new margin a. Rt br tissue- needle anterior ( near nearest nipple ) b. Rt br tissue- 2 posterior needles- silk anterior c. addnl lateral/ anterior tissue- meth blue- new margin Anesthesia LMA Complication(s) None Disposition Recovery Room / PACU Description of Procedure Patient was brought in the operating room placed In table in the supine position her right arm was extended onto an arm board. She had 3 needles placed in the right breast at the breast center. Her right chest and axilla were then prepped and draped in usual fashion. Percent plain Marcaine was used to anesthetize the tissue around the needles. Incision was made around the anterior needle which was nears to the nipple care dissection deeply down excising the tissue and placing into the Faxitron with the clip noted. A second incision was made more laterally at the level of the other 2 needles. Dissection was carried down transecting both needles and then dissecting the tissue around both needles. This was marked as right breast tissue to posterior needles with the silk suture anterior. Additional lateral/anterior tissue was also taken with its anterior medial medial edge into the part a biopsy cavity. This tissue was marked with methylene blue on the new margin. Additional lateral tissue was taken with methylene blue marking the new margin. The initial specimen with the 2 needles did not clearly show the clip but it was felt to be beside the needle toward the tip. Deep tissue was then reapproximated using 20 plain catgut suture and the skin reapproximated using 5- 0 Prolene suture. We did use the Faxitron extensively during the operation to identify the necessary tissue. I attest to the content of the Intraoperative Record and any orders documented therein. Any exceptions are noted below.
--- NOTE | 2016-11-04 12:07 | Anesthesiology Progress Note ---
Anesthesia Post Op Note Date & Time Nov 04, 2016 at 12:06 Vital Signs Pain Intensity: 0 Vital Signs Past 12 Hours Date Time Temp Pulse Resp B/P (MAP) Pulse Ox O2 Delivery O2 Flow Rate FiO2 11/04/16 12:00 72 16 128/75 99 Mask 10 11/04/16 11:50 76 16 120/76 99 Mask 10 11/04/16 11:41 36.7 84 16 136/61 96 Mask 10 11/04/16 09:37 36.6 73 20 144/68 (93) 96 Room Air Notes Mental Status: alert / awake / arousable, participated in evaluation Pt Amnestic to Procedure: Yes Nausea / Vomiting: adequately controlled Pain: adequately controlled Airway Patency, RR, SpO2: stable & adequate BP & HR: stable & adequate Hydration State: stable & adequate Anesthetic Complications: no major complications apparent
--- NOTE | 2016-11-04 12:32 | Surgery Progress Note ---
Surgery Progress Note Date of Service Nov 04, 2016. Objective Vital Signs: Date Time Temp Pulse Resp B/P (MAP) Pulse Ox O2 Delivery O2 Flow Rate FiO2 11/04/16 12:20 36.3 75 16 128/54 97 Mask 3 11/04/16 12:10 74 16 134/69 99 Mask 3 11/04/16 12:00 72 16 128/75 99 Mask 10 11/04/16 11:50 76 16 120/76 99 Mask 10 11/04/16 11:41 36.7 84 16 136/61 96 Mask 10 11/04/16 09:37 36.6 73 20 144/68 (93) 96 Room Air Assessment & Plan 11/04/16- pt s/p Rt breast surgery- bx times 3- will keep overnight for observation and d/c in am 7/4 if she does ok- all scripts/ orders done except d/c order- Dr Cerna/ [place] covering tonight and tomorrow
--- NOTE | 2016-11-04 12:36 | MAMMOGRAPHY REPORT ---
NEEDLE LOCALIZATION RIGHT BREAST: 11/04/2016 CLINICAL HISTORY: Atypical ductal proliferation diagnostic core needle biopsy in the 8:30 right breas t, 9 cm and 5 cm from the nipple. Similar appearing non-biopsied mass in the 8:30 right breast 10 cm from the nipple. Patient presents for preoperative needle localization 3. COMPARISON: Comparison is made to exams dated: 11/04/2016 specimen, 09/25/2016 ultrasound biopsy, 2016 stereotactic biopsy, 09/25/2016 ultrasound biopsy, 09/25/2016 mammogram, and 09/09/2016 ultrasound - [facility]. PATIENT CONSENT: The risks of the procedure were explained to the patient and informed consent was ob tained. The patient denied eating or drinking anything this morning that would preclude anesthesia. No allergy to lidocaine. PROCEDURE DESCRIPTION: A time out was performed in the right breast was agreed as the site for preope rative localization 3. Post procedure mammograms obtained after the stereotactic and ultrasound-pedro ded core biopsies in the right breast dated 09/25/2016 were reviewed. The wing-shaped and ribbon-sha ped metallic biopsy markers are the intended target for localization. A smaller yet similar appearin g mass in the 8:30 far posterior right breast is the third target for localization. The skin of the right breast was cleansed with Betadine. First the mass in the 8:30 breast, 5 cm from the nipple was identified and targeted for localization. 1% buffered lidocaine without epinephrine was administere d. Via a lateral approach, a 5 cm Sofia II needle and wire combination was inserted through this m ass and the wire was locked in place. The notch in the needle is located at the posterior margin of the mass. Then the mass in the 8:30 breast, 9 cm from the nipple was identified. Additional 1% buff ered lidocaine was administered. A 5 cm Sofia II needle and wire combination was inserted through t his mass and the wire was locked in place. The notch in the needle is located at the posterior tadeo n of the mass. Finally, the smallest, non-biopsied yet similar appearing mass in the 8:[address] was identified. 1% buffered lidocaine was administered as local anesthesia. A 5 cm Sofia II ne edle and wire combination was inserted through this mass and the wire was locked in place. The notch in the needle is located at the posterior margin of the mass. The needles and wires were then taped to the breast and postprocedure imaging was performed. On the right XCCL view there are 3 localizin g needle and wire combinations. The biopsy marker clips are seen immediately abutting the localizing needle in the 8:30 right breast 9 cm from the nipple and 5 cm from the nipple. The procedure includ ing approach and length of the needles was discussed with the operating surgeon prior to surgery. 3 specimen radiographs were obtained. The first contains the localizing needle and wire as well as t he wing-shaped clip. The second contains 2 localizing needles/wires and the ribbon-shaped clip. A t hird specimen demonstrates no needles or biopsy marker clips. These findings are compatible with suc cessful preoperative localization and subsequent surgical excision. Final pathology is pending. IMPRESSION: NEEDLE LOCALIZATION Status post successful preoperative needle and wire localization 3 in the right 8:30 breast. The patient will receive notification of the pathology results from her referring physician. Essence Herring M.D. ay/:11/04/2016 12:29:41 Attending Technologist: Dr. Essence Herring, [facility] Input Output Clerk: Rubia Tyler RT(R)(M), [facility]
--- NOTE | 2016-11-04 12:36 | MAMMOGRAPHY REPORT ---
SPECIMEN: 11/04/2016 CLINICAL HISTORY: Specimen radiograph. Please refer to the report from right breast ultrasound-guided needle localization performed at the s goran time for full detail. IMPRESSION: SPECIMEN Please refer to the report from right breast ultrasound-guided needle localization performed at the s goran time for full detail. Essence Herring M.D. ay/:11/04/2016 09:03:43 Registered Nurse Obstetrics: Rubia SEVILLA(R)(M), [facility]
--- NOTE | 2016-11-04 12:37 | MAMMOGRAPHY REPORT ---
UNILATERAL RIGHT DIGITAL DIAGNOSTIC MAMMOGRAM: 11/04/2016 CLINICAL HISTORY: Needle localization for atypical ductal proliferations located in the 8:30 axis of the right breast 9 cm and 5 cm from the nipple, a diagnostic core needle biopsy. Also localization f or a third, non-biopsied, similar appearing mass in the 8:30 right breast, 10 cm from the nipple. Please refer to the report from right breast ultrasound-guided needle localization performed at the s goran time for full detail. IMPRESSION: Please refer to the report from right breast ultrasound-guided needle localization performed at the s goran time for full detail. Approximately 10% of breast cancers are not detected with mammography. A negative mammographic report should not delay biopsy if a clinically suggestive mass is present. Essence Herring M.D. ay/:11/04/2016 10:25:54 Assistant Director Of Public Works: Rubia NEGRON)(Ximena), [facility] BI-RADS Code: n/a
[2016-11-04] MEDS ORDERED: HYDROCHLOROTHIAZIDE 50 MG TAB PO SCH (14:00)
[2016-11-04] MEDS ORDERED: IV FLUIDS COMPLETED PRN (14:00)
[2016-11-04] MEDS: LOSARTAN POTASSIUM 50 MG TAB PO SCH (14:42)
[2016-11-04] MEDS: AMILORIDE/HCTZ 5-50 MG TAB PO SCH (14:42)
[2016-11-04] MEDS ORDERED: NURSING VERBAL MED ORDER ONE (14:45)
[2016-11-04] MEDS: CEFAZOLIN IV 1,000 MG in DEXTROSE 5% 50ML 50 ML IV SCH (20:42)
[2016-11-04] MEDS ORDERED: SIMVASTATIN 20 MG TAB PO SCH (21:00)
[2016-11-05] MEDS: CEFAZOLIN IV 1,000 MG in DEXTROSE 5% 50ML 50 ML IV SCH ×2 (02:07→10:06)
[2016-11-05 03:08] VITALS: BP 113/58; PULSE 78; TEMP 36.5; O2SAT 90
[2016-11-05] MEDS ORDERED: LEVOTHYROXINE 150 MCG TAB PO SCH (06:00)
[2016-11-05 06:58] VITALS: BP 125/75; PULSE 72; TEMP 36.6; O2SAT 95
--- NOTE | 2016-11-05 10:50 | Surgery Progress Note ---
Surgery Progress Note Date of Service Nov 05, 2016. Subjective Post OP Day: 1 + feeling well, + ambulating, No complaints Objective Vital Signs: Date Time Temp Pulse Resp B/P (MAP) Pulse Ox O2 Delivery O2 Flow Rate FiO2 11/05/16 08:00 Room Air 11/05/16 06:58 36.6 72 16 125/75 (92) 95 Room Air 11/05/16 03:08 36.5 78 16 113/58 (76) 90 Room Air 11/04/16 23:15 Room Air 11/04/16 23:10 36.7 78 16 122/65 (84) 95 Room Air 11/04/16 19:40 36.7 76 18 104/62 (76) 93 11/04/16 15:45 Room Air 11/04/16 15:41 36.5 76 18 109/57 (74) 93 Room Air 11/04/16 14:43 36.6 84 17 131/73 (92) 95 Room Air 11/04/16 13:40 36.7 77 17 103/63 (76) 91 Room Air 11/04/16 13:14 72 17 115/68 (84) 93 Room Air 11/04/16 12:45 94 Room Air 11/04/16 12:45 36.6 78 16 118/61 (80) 94 Room Air 11/04/16 12:45 36.6 78 16 118/61 Room Air 11/04/16 12:20 36.3 75 16 128/54 97 Mask 3 11/04/16 12:10 74 16 134/69 99 Mask 3 11/04/16 12:00 72 16 128/75 99 Mask 10 11/04/16 11:50 76 16 120/76 99 Mask 10 11/04/16 11:41 36.7 84 16 136/61 96 Mask 10 General Appearance: WD/WN, no apparent distress Head: normocephalic, atraumatic Respiratory/Chest: normal breath sounds, no accessory muscle use Cardiovascular: regular rate, rhythm, no edema Incision(s): clean, dry, intact Assessment & Plan Looking well. s/p breast biopsy. Will discharge.
[2016-11-05 10:58] VITALS: BP 125/75; PULSE 72; TEMP 36.6; O2SAT 95
[2016-11-05] MEDS: AMILORIDE/HCTZ 5-50 MG TAB PO SCH (12:28)
[2016-11-05] MEDS: LOSARTAN POTASSIUM 50 MG TAB PO SCH (12:29)
--- NOTE | 2016-11-08 10:40 | Discharge Summary ---
Discharge Summary Date of Service Nov 08, 2016. Admission Date/Reason Nov 04, 2016 at 11:47 Abnormal Mammogram -Right Breast W/Hosp Loc. Discharge Date/Disposition Nov 05, 2016 Home Diagnosis Principal Diagnosis: Abnormal Mammogram- Right Breast with Hosp Loc. Secondary Diagnoses/Problems: 1. Vertigo 2. Hypertension 3. High Cholesterol Procedure(s) Performed Needle Loc Right Breast Biopsy X 3 Medication Reconciliation New Medications: Cephalexin Monohydrate (Keflex) 500 Mg Cap 500 MG PO TID, #15 CAP Hydrocodone/Acetaminophen 5MG/325MG ([place] 5MG/325MG) Tab 1-2 TABLET PO q 6 hrs PRN for Pain, #30 TAB PRN PAIN Continued Medications: Acetaminophen (Tylenol Arthritis Ext Rel) 650 Mg Cplt 650 MG PO Q8H PRN for Pain, CAP Amiloride/Hctz (Amiloride/Hydrochlorothia 5-50 mg) 1 Ea Tab 1 TAB PO NOON Aspirin (Aspirin 81) 81 Mg Tab 81 MG PO HS ENCOURAGED TO CONTACT SURGEON OFFICE FOR PRE OP INSTRUCTIONS Cholecalciferol (Vitamin D 1000 Unit) 1,000 Unit Cap 2000 INTER.UNIT PO NOON, CAP Levothyroxine Sodium (Levothyroxine Sodium) 150 Mcg Tab 1 TAB PO QAM Losartan Potassium (Cozaar) 50 Mg Tab 50 MG PO NOON, TAB Multivitamin (Multivitamin) Tab 1 TAB PO NOON, 0 Refills Simvastatin (Zocor) 20 Mg Tab 20 MG PO QPM Admission Physical Exam As per Admitting History & Physical. Hospital Course On November 04, 2016 patient underwent needle loc right breast biopsy X [address] Hewitt- patient was admitted post-operatively for observation. Patient did very well post-operatively- Pain was controlled, Vital Signs stable , Afebrile. Patient was discharged to home on post-op day #1. Discharge Instructions- Patient to follow-up in the General Surgery office in 1 week for some suture removal. No lifting over 25lbs. Discharge Instructions Please refer to the electronic Patient Visit Report (Discharge Instructions) for additional information.
== END 2016-11-05 13:12 | disposition home or self-care (01) ==
LOC: C.ACU 07:40 → C.MSW 11:47 → ENRESERV 12:02
PROVIDERS: ADMIT Surgery; ATTEND Surgery
DX: D24.1 Benign neoplasm of right breast (principal); R92.8 Other abnormal and inconclusive findings on diagnostic imaging of breast; I10 Essential (primary) hypertension; E78.00 Pure hypercholesterolemia, unspecified; E03.9 Hypothyroidism, unspecified; E78.5 Hyperlipidemia, unspecified; Z79.82 Long term (current) use of aspirin; Z79.899 Other long term (current) drug therapy

== ENCOUNTER → 2017-04-14 | Outpatient (CLI) | payer OTHER ==
[~2017-04-14] MED LIST changes: -ATROPINE SULFATE 0.1 MG/ML 5ML SYR IV PRN; -CEFAZOLIN 2000 MG/60 ML D5W IV SCH; +CEPH500C2 PO; -EpHEDrine SULFATE INJ 50 MG/ML AMP IV PRN; -FENTANYL CITRATE INJ 50 MCG/1 ML 2 ML VIAL IV PRN; +HYDR-5688 PO; -HYDROmorphone INJ 1 MG/ML SYR IV PRN; -LACTATED RINGER'S 1000ML 1,000 ML IV SCH; -ONDANSETRON INJ 2 MG/ML 2 ML VIAL IV PRN
== END | disposition home or self-care (01) ==
LOC: C.RDSM 12:15
PROVIDERS: ATTEND Physical Medicine & Rehabilitation Sports Medicine
DX: M25.562 Pain in left knee (principal)

== ENCOUNTER → 2017-05-08 | Outpatient (CLI) | payer OTHER ==
[~2017-05-08] MED LIST changes: +BENZ100C84 PO; -CEPH500C2 PO; +CLR10 PO; -HYDR-5688 PO; +TRMO115 TOP
--- NOTE | 2017-05-09 14:37 | MAMMOGRAPHY REPORT ---
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 She is also status post benign stereotactic bi opsy of right breast calcifications. TECHNIQUE: Breast tomosynthesis in addition to standard 2D mammography was performed. Current study was also evaluated with a Computer Aided Detection (CAD) system. Bilateral CC and MLO 2-D and tomosy nthesis images were obtained. COMPARISON: Comparison is made to exams dated: 11/04/2016 mammogram, 11/04/2016 localization, 11/04/2016 s pecimen, 09/25/2016 ultrasound biopsy, 09/25/2016 stereotactic biopsy, and 09/25/2016 ultrasound biopsy - [facility]. BREAST COMPOSITION: There are scattered areas of fibroglandular density in both breasts. FINDINGS: There are new expected post surgical changes in the right upper outer quadrant from prior surgical excision which yielded benign adenomyoepitheliomas, with new density and architectural disto rtion at the surgical bed. The remainder of both breasts are stable compared to prior exams, without suspicious masses, calcifications, or areas of architectural distortion noted. A biopsy marker clip is again noted within the right upper outer quadrant from prior benign stereotactic biopsy. Nodular ity seen bilaterally on the tomosynthesis images is unchanged. IMPRESSION: ACR BI-RADS CATEGORY 2: BENIGN Expected postsurgical changes in the right breast from prior benign surgical excision. There is no m ammographic evidence of malignancy in either breast. A 1 year screening mammogram is recommended. T he patient has been verbally notified of the results. Approximately 10% of breast cancers are not detected with mammography. A negative mammographic report should not delay biopsy if a clinically suggestive mass is present. Keke Bone M.D. ah/:05/08/2017 13:55:35 Solid Plasterer: Jennifer NEGRON)(M), [facility] letter sent: Normal 1/2 BI-RADS Code: ACR BI-RADS Category 2: Benign
== END | disposition home or self-care (01) ==
LOC: C.MAMM 13:27
PROVIDERS: ATTEND Surgery
DX: R92.8 Other abnormal and inconclusive findings on diagnostic imaging of breast (principal)

== ENCOUNTER → 2017-05-14 | Outpatient (CLI) | payer OTHER ==
--- NOTE | 2017-05-14 14:45 | DIAGNOSTIC IMAGING REPORT ---
LEG LENGTH STUDY CLINICAL HISTORY: Osteoarthritis of the left knee. FINDINGS: An AP view of the lower extremities is obtained. The skeletal structures are osteopenic. There is no evidence of fracture. The right lower extremity measures 92.5 cm and the left lower extremity measures 91.9 cm as measured from the femoral head to the tibial plafonds. No pelvic tilt is identified. Osteoarthritic change is present in both knees. Mild arthritic change is seen in the hips. A large calcification in the pelvis is consistent with a large calcified fibroid. IMPRESSION: Leg length assessment as above. Electronically signed by: Denis Quiros M.D. 05/14/2017 2:44 PM Dictated Date/Time: 05/14/2017 2:41 PM
== END | disposition home or self-care (01) ==
LOC: C.RDSM 14:10
PROVIDERS: ATTEND Physician Assistant
DX: M17.12 Unilateral primary osteoarthritis, left knee (principal); M21.752 Unequal limb length (acquired), left femur

== ENCOUNTER 2017-05-27 05:07 | Inpatient (IN) | payer OTHER ==
[2017-05-14 15:33] VITALS: BMI 31.0
--- NOTE | 2017-05-14 16:06 | PAT Medication Instructions ---
Service Date May 14, 2017. Current Home Medication List Acetaminophen (Tylenol Arthritis Ext Rel), 650-1,330 MG PO Q8H PRN for Pain Amiloride/Hctz (Amiloride/Hydrochlorothia 5-50 mg), 1 TAB PO NOON Aspirin (Aspirin 81), 81 MG PO HS Benzonatate (Tessalon Perles), 100 MG PO TID PRN for RN Cholecalciferol (Vitamin D 1000 Unit), 2,000 INTER.UNIT PO NOON Levothyroxine Sodium (Levothyroxine Sodium), 1 TAB PO QAM Loratadine (Claritin), 10 MG PO PRN Losartan Potassium (Cozaar), 50 MG PO NOON Multivitamin (Multivitamin), 1 TAB PO NOON Simvastatin (Zocor), 20 MG PO QPM Triamcinolone Acet (Triamcinolone Acetonide), 1 APPLN TOP BID PRN for PRN Medication Instructions For Your Scheduled Surgery - Hold the following medications 24 hours prior to surgery: Triamcinolone Acet (Triamcinolone Acetonide), 1 APPLN TOP BID PRN for PRN - Hold the following medications the morning of surgery: Amiloride/Hctz (Amiloride/Hydrochlorothia 5-50 mg), 1 TAB PO NOON Benzonatate (Tessalon Perles), 100 MG PO TID PRN for RNc Losartan Potassium (Cozaar), 50 MG PO NOON Multivitamin (Multivitamin), 1 TAB PO NOON Cholecalciferol (Vitamin D 1000 Unit), 2,000 INTER.UNIT PO NOON Loratadine (Claritin), 10 MG PO PRN - Take the following medications the morning of surgery with a sip of water: Acetaminophen (Tylenol Arthritis Ext Rel), 650-1,330 MG PO Q8H PRN for Pain ( okay to take up 4 hours prior to surgery if needed) Levothyroxine Sodium (Levothyroxine Sodium), 1 TAB PO QAM - Take the following medications as scheduled the night before surgery: Aspirin (Aspirin 81), 81 MG PO HS Benzonatate (Tessalon Perles), 100 MG PO TID PRN for RN (if needed) Simvastatin (Zocor), 20 MG PO QPM Loratadine (Claritin), 10 MG PO PRN (if needed) Acetaminophen (Tylenol Arthritis Ext Rel), 650-1,330 MG PO Q8H PRN for Pain (if needed) If you have any questions please call us at [phone] or [phone] or [phone]
[2017-05-14 16:33] LABS: BASO % 0.3 %; BASO ABS # 0.02 K/uL (0-0.2); EOS % 2.8 %; EOS ABS # 0.21 K/uL (0-0.5); HEMATOCRIT 39.1 % (37-47); IG# 0.01 K/uL (0.00-0.02); LYMPH % 31.8 %; LYMPH ABS # 2.36 K/uL (1.2-3.4); MEAN CELL VOLUME 100.8 fL (80-100); MEAN CORPUSCULAR HEMOGLOBIN 33.5 pg (25-34); MEAN CORPUSCULAR HGB CONC 33.2 g/dl (32-36); MEAN PLATELET VOLUME 9.7 fL (7.4-10.4); MONO % 5.5 %; MONO ABS # 0.41 K/uL (0.11-0.59); NEUT % 59.5 %; NEUT ABS # 4.42 K/uL (1.4-6.5); PLATELET COUNT 240 K/uL (130-400); RED CELL DISTRIBUTION WIDTH CV 12.8 % (11.5-14.5); RED CELL DISTRIBUTION WIDTH SD 46.8 fL (36.4-46.3); WHITE BLOOD COUNT 7.43 K/uL (4.8-10.8)
[2017-05-14 16:45] LABS: CALCIUM 9.6 mg/dl (8.5-10.1); CREATININE 0.82 mg/dl (0.60-1.20); POTASSIUM 3.9 mmol/L (3.5-5.1)
[2017-05-14 16:46] LABS: PTT PATIENT 24.5 SECONDS (21.0-31.0)
--- NOTE | 2017-05-15 17:17 | History and Physical ---
History & Physical Date & Time of Service: May 15, 2017 at 16:43 Chief Complaint: Left Knee Osteoarthritis Primary Care Physician: Nate Rosen M.D. History of Present Illness Source: patient Mrs. Hardy is an 81-year-old female who is scheduled for an elective left total knee arthroplasty with Dr. Bernardo Funez at the [facility] in May 27, 2017. She states that her knee pain has been ongoing for many years. Most of her knee pain is on the inside aspect of her knee but it does Radiate throughout the entire knee. Her pain is increased with activity and weightbearing of her left knee. She does have decreasing activities of daily living due to pain in her left knee. She has pain with range of motion and limited motion in her left knee due to pain. She denies any known joint effusions but states that her left knee is always more swollen than the right. Aggravating activities include walking, going up and down steps, rest, sitting in one position for too long. She also gets night pain occasionally. Prior treatments include nonsteroidal anti-inflammatories, physical therapy, corticosteroid injections and viscous supplementations. She states there is nothing that gets her long-lasting relief. Her pain is continued to progressively worsen. Surgical intervention was discussed. She wished to proceed with surgery and was scheduled for elective left total knee arthroplasty. Past Medical/Surgical History Medical Problems: 1. Hypertension 2. High cholesterol 3. Hypothyroidism Surgical history: 1. History of breast biopsy 2. Bilateral hysterectomy Family History Her father had diabetes. Her maternal grandmother had a history of heart attack. Her mother has high blood pressure. Her sister had a history of stroke. Social History Smoking Status: Never Smoker Alcohol Use: socially (Has a drink 3-5 times per week.) Drug Use: none Marital Status: Housing status: lives with significant other Multi-Drug Resistant Organisms History of MDRO: No Allergies Coded Allergies: Adhesives (Verified Allergy, Unknown, RED SKIN IRRITATION WITH SOME TAPES , 05/14/17) Amlodipine (Verified Allergy, Unknown, LEGS SWELLING, 05/14/17) Lisinopril (Verified Allergy, Unknown, lips swelling, 05/14/17) Chlorhexidine (Verified Adverse Reaction, Intermediate, Itching-PT DENIES ANY PROBLEMS, 05/14/17) PT WILL TEST ON INNER ARM WITH CHG WIPES NIGHT BEFORE SURG-IF NO REACTION NOTICED SHE WILL USE ON HER OPERATIVE LEG BEFORE SURG. Home Medications Scheduled Amiloride/Hctz (Amiloride/Hydrochlorothia 5-50 mg), 1 TAB PO NOON Aspirin (Aspirin 81), 81 MG PO HS Cholecalciferol (Vitamin D 1000 Unit), 2,000 INTER.UNIT PO NOON Levothyroxine Sodium (Levothyroxine Sodium), 1 TAB PO QAM Loratadine (Claritin), 10 MG PO PRN Losartan Potassium (Cozaar), 50 MG PO NOON Multivitamin (Multivitamin), 1 TAB PO NOON Simvastatin (Zocor), 20 MG PO QPM Scheduled PRN Acetaminophen (Tylenol Arthritis Ext Rel), 650-1,330 MG PO Q8H PRN for Pain Benzonatate (Tessalon Perles), 100 MG PO TID PRN for RN Triamcinolone Acet (Triamcinolone Acetonide), 1 APPLN TOP BID PRN for PRN Review of Systems Constitutional: No fever, No chills, No sweats, No weight loss, No fatigue Eyes: No worsening of vision, No redness ENT: + hearing loss (She denies having hearing loss but her states that she does have hearing loss. Nothing diagnosed.), No sore throat, No tinnitus, No dental problems, No trouble swallowing Respiratory: No cough, No sputum, No wheezing, No shortness of breath, No dyspnea on exertion Cardiovascular: No chest pain, No edema, No palpitations Abdomen: No pain, No nausea, No vomiting, No diarrhea, No constipation Musculoskeletal: + joint pain, No swelling, No calf pain Genitourinary - Female: No dysuria, No urinary frequency, No urinary urgency, No urinary incontinence, No urinary retention Neurologic: No memory loss, No numbness/tingling, No balance problems Psychiatric: No anxiety Endocrine: No fatigue Hematologic / Lymphatic: No abnormal bleeding/bruising, No clotting problems Integumentary: No rash, No itch Allergic / Immunologic: No frequent infections, No poor healing Physical Exam General Appearance: WD/WN, no apparent distress Head: normocephalic, atraumatic Eyes: normal inspection, PERRL, EOMI, sclerae normal ENT: normal ENT inspection, hearing grossly normal, TMs normal, pharynx normal Neck: supple, no adenopathy, thyroid normal, no carotid bruits, trachea midline Respiratory/Chest: chest non-tender, lungs clear, normal breath sounds, no respiratory distress, no accessory muscle use Cardiovascular: regular rate, rhythm, no edema, no murmur, normal peripheral pulses Abdomen/GI: normal bowel sounds, non tender, soft Extremities/Musculoskelatal: no calf tenderness, normal capillary refill, no pedal edema, + pertinent finding (She has no pain with range of motion of her left hip. She was not really short leg raise. Strength is 5/5. Range of motion is 0-125 of flexion. She is pain with palpation of her medial joint line. She is ligamentously stable. She does have a small effusion to her left knee. Posterior tibial and dorsalis pedis pulses are 1+.) Neurologic/Psych: no motor/sensory deficits, alert, normal mood/affect, oriented x 3 Skin: normal color, warm/dry, no rash Diagnostics Laboratory Results 05/14/17 16:10 Red Blood Count 3.88, Mean Corpuscular Volume 100.8, Mean Corpuscular Hemoglobin 33.5, Mean Corpuscular Hemoglobin Concent 33.2, Mean Platelet Volume 9.7, Neutrophils (%) (Auto) 59.5, Lymphocytes (%) (Auto) 31.8, Monocytes (%) ( Auto) 5.5, Eosinophils (%) (Auto) 2.8, Basophils (%) (Auto) 0.3, Neutrophils # ( Auto) 4.42, Lymphocytes # (Auto) 2.36, Monocytes # (Auto) 0.41, Eosinophils # ( Auto) 0.21, Basophils # (Auto) 0.02 05/14/17 16:10 Test 05/14/17 16:10 White Blood Count 7.43 K/uL (4.8-10.8) Red Blood Count 3.88 M/uL (4.2-5.4) Hemoglobin 13.0 g/dL (12.0-16.0) Hematocrit 39.1 % (37-47) Mean Corpuscular Volume 100.8 fL (80-100) Mean Corpuscular Hemoglobin 33.5 pg (25-34) Mean Corpuscular Hemoglobin Concent 33.2 g/dl (32-36) Platelet Count 240 K/uL (130-400) Mean Platelet Volume 9.7 fL (7.4-10.4) Neutrophils (%) (Auto) 59.5 % Lymphocytes (%) (Auto) 31.8 % Monocytes (%) (Auto) 5.5 % Eosinophils (%) (Auto) 2.8 % Basophils (%) (Auto) 0.3 % Neutrophils # (Auto) 4.42 K/uL (1.4-6.5) Lymphocytes # (Auto) 2.36 K/uL (1.2-3.4) Monocytes # (Auto) 0.41 K/uL (0.11-0.59) Eosinophils # (Auto) 0.21 K/uL (0-0.5) Basophils # (Auto) 0.02 K/uL (0-0.2) RDW Standard Deviation 46.8 fL (36.4-46.3) RDW Coefficient of Variation 12.8 % (11.5-14.5) Immature Granulocyte % (Auto) 0.1 % Immature Granulocyte # (Auto) 0.01 K/uL (0.00-0.02) Prothrombin Time 10.4 SECONDS (9.0-12.0) Prothromb Time International Ratio 1.0 (0.9-1.1) Activated Partial Thromboplast Time 24.5 SECONDS (21.0-31.0) Partial Thromboplastin Ratio 0.9 Anion Gap 7.0 mmol/L (3-11) Est Creatinine Clear Calc Drug Dose 55.6 ml/min Estimated GFR () 77.8 Estimated GFR (Non- 67.1 BUN/Creatinine Ratio 27.3 (10-20) Calcium Level 9.6 mg/dl (8.5-10.1) Diagnostic Radiology AP STANDING VIEW BOTH KNEES; 3 VIEWS LEFT KNEE CLINICAL HISTORY: Chronic left knee pain. FINDINGS: An AP standing view of both knees with lateral, tunnel, and sunrise views of the left knee are compared to study dated 04/21/2013. The skeletal structures are osteopenic. No fracture is seen. There is moderate degenerative narrowing seen in the medial and patellofemoral compartments. Mild narrowing is identified in the lateral compartment. There is degenerative beaking of the tibial spine as well as small patellar enthesophytes. No osteochondral defect is identified on the tunnel image. There is a left knee joint effusion with mild surrounding soft tissue edema. Survey images of the right knee on the frontal view show degenerative joint space narrowing in the medial and lateral compartments, with marginal osteophytes and degenerative beaking of the tibial spine. IMPRESSION: 1. Joint effusion and soft tissue swelling. No acute bony abnormality is seen in the left knee. 2. Osteopenia and arthritic change as above. This is similar in appearance to the 04/21/2013 examination. LEG LENGTH STUDY CLINICAL HISTORY: Osteoarthritis of the left knee. FINDINGS: An AP view of the lower extremities is obtained. The skeletal structures are osteopenic. There is no evidence of fracture. The right lower extremity measures 92.5 cm and the left lower extremity measures 91.9 cm as measured from the femoral head to the tibial plafonds. No pelvic tilt is identified. Osteoarthritic change is present in both knees. Mild arthritic change is seen in the hips. A large calcification in the pelvis is consistent with a large calcified fibroid. IMPRESSION: Leg length assessment as above. CXR normal Normal EKG Impression Assessment and Plan Assessment: DJD left knee Plan: patient is scheduled for elective left total knee arthroplasty on May 27, 2017. Varus and complications of surgery were explained to the patient and include but are not limited to infection, pain, bleeding, scarring, nerve and blood vessel damage, wound problems, weakness, stiffness, incomplete relief of symptoms, hardware failure, fracture, loosening, blood clots, embolisms, heart attack, stroke and . All questions were answered and informed consent was obtained by Dr. Funez. She is scheduled for preadmission testing on May 14, 2017. At that time we will obtain a preoperative CBC, PRP, PT/PTT and type and screen. She was instructed on the usage of CHG cloths. She would like to go home with home health after surgery. She is able to get a walker for use at home. Inpatient and postoperative course were discussed. All questions were answered. She will preoperative medical clearance by her family physician, Vikki MOODY on May 19, 2017. We will use Lovenox 30 mg twice a day for 28 days after surgery for DVT prophylaxis. She knows to call with any worsening problems, questions or concerns. Advanced Directives Existing Living Will: No Existing Power of Stogy Maker: No
[2017-05-27] VITALS (9 sets, daily range): BP systolic 93–139; BP diastolic 54–79; PULSE 72–90; TEMP 36.4–36.8; O2SAT 92–95; Ht 162.6 cm; Wt 79.0 kg
[~2017-05-27] VITALS: Ht 162.6 cm; Wt 79.0 kg
[2017-05-27] MEDS ORDERED: TRAMADOL HCL 50 MG TAB PO SCH (06:00)
[2017-05-27] MEDS ORDERED: FAMOTIDINE 20 MG TAB PO SCH (06:00)
[2017-05-27] MEDS ORDERED: DEXAMETHASONE 4 MG TAB PO SCH (06:00)
[2017-05-27] MEDS ORDERED: CEFAZOLIN 2000MG IV PUSH 10 ML IV SCH (06:00)
[2017-05-27] MEDS ORDERED: CLONIDINE HCL 0.1 MG/24 HR TRANSDERM SYS TD SCH (06:00)
[2017-05-27] MEDS ORDERED: LACTATED RINGER'S 1000ML 500 ML IV SCH (06:00)
[2017-05-27] MEDS ORDERED: LACTATED RINGER'S 1000ML 1,000 ML IV SCH (06:00)
[2017-05-27] MEDS ORDERED: GABAPENTIN 300 MG CAP PO SCH (06:00)
[2017-05-27] MEDS ORDERED: METOCLOPRAMIDE HCL 10 MG TAB PO SCH (06:00)
[2017-05-27] MEDS ORDERED: ROPIVACAINE 5MG/ML 30 ML 150 MG, BUPIVACAINE/EPINEPHR 0.5% MPF 30 ML, KETOROLAC TROMETH... INFIL SCH ×5 (06:00)
[2017-05-27] MEDS ORDERED: LACTATED RINGER'S 1000ML IV SCH (06:00)
[2017-05-27] MEDS ORDERED: CeleBREX 200 MG CAP PO SCH (06:00)
[2017-05-27] MEDS ORDERED: OXYCODONE HCL 10 MG TABCR (OXYCONTIN) PO SCH (06:00)
[2017-05-27] MEDS ORDERED: ACETAMINOPHEN 500 MG TAB PO SCH (06:00)
[2017-05-27] MEDS ORDERED: BUPIVACAINE 0.25% 30 ML VIAL ONE (06:23)
[2017-05-27] MEDS ORDERED: BUPIVACAINE 0.5 % 5 MG/1 ML PF 10ML VIAL ONE (06:23)
[2017-05-27] MEDS ORDERED: BACITRACIN 50000 UNIT VIAL ONE (06:29)
[2017-05-27] MEDS ORDERED: POVIDONE-IODINE OP SOLN 30 ML BTL ONE (06:29)
[2017-05-27] MEDS ORDERED: ORTHO JOINT ANESTHETIC ONE (06:29)
[2017-05-27] MEDS: TRANEXAMIC ACID INJ 1,000 MG in SYRINGE 0 ML IV SCH ×2 (06:30→06:35)
[2017-05-27] MEDS ORDERED: MIDAZOLAM HCL 1 MG/ML 2ML VIAL ONE ×2 (06:45→08:13)
[2017-05-27] MEDS ORDERED: FENTANYL CITRATE INJ 50 MCG/1 ML 2 ML VIAL ONE (07:20)
[2017-05-27] MEDS ORDERED: PROPOFOL IV EMULSION 10 MG/ML 20 ML VIAL IV ONE (07:59)
[2017-05-27] MEDS ORDERED: EpHEDrine SULFATE 50MG/5ML SYR ONE (09:06)
--- NOTE | 2017-05-27 09:19 | [facility] Post Operative Brief Note ---
Immediate Operative Summary Operative Date May 27, 2017. Pre-Operative Diagnosis Degenerative Joint Disease, Left Knee Post-Operative Diagnosis Degenerative Joint Disease, Left Knee Procedure(s) Performed Left Total Knee Arthroplasty Surgeon Dr. Bernardo Funez Manager Heart Failure Surgeon(s) Vandana Morfin PA-C, nupur murillo, student Estimated Blood Loss 25ML Findings Consistent with Post-Op Diagnosis Specimens Permanent Solution: A.) Left Knee Bone and Tissue Drains None Anesthesia Type MAC Spinal Regional Complication(s) none Disposition Accompanied Pt To Recover: no Disposition: Recovery Room / PACU
[2017-05-27] MEDS ORDERED: OXYCODONE HCL IR 5 MG TAB (IMMEDIATE RELEASE) PO PRN (09:45)
[2017-05-27] MEDS ORDERED: MAGNESIUM HYDROXIDE SUSP 30 ML UDC PO PRN (09:45)
[2017-05-27] MEDS ORDERED: BISACODYL 10 MG SUPP PR PRN (09:45)
[2017-05-27] MEDS ORDERED: LORATADINE 10 MG TAB PO PRN (09:45)
[2017-05-27] MEDS ORDERED: CEFAZOLIN IV 1,000 MG in DEXTROSE 5% 50ML 50 ML IV SCH (09:45)
[2017-05-27] MEDS ORDERED: MoRPHine SULFATE 2 MG/ML CARP IV PRN (09:45)
[2017-05-27] MEDS ORDERED: METOCLOPRAMIDE HCL INJ 5 MG/ML 2 ML VIAL IV PRN (09:45)
[2017-05-27] MEDS ORDERED: ONDANSETRON INJ 2 MG/ML 2 ML VIAL IV PRN (09:45)
[2017-05-27] MEDS ORDERED: TRAMADOL HCL 50 MG TAB PO PRN (09:45)
[2017-05-27] MEDS ORDERED: SOD PHOSPHATE/SOD BIPHOSPHATE ENEMA 132 ML BTL PR PRN (09:45)
[2017-05-27] MEDS ORDERED: ACETAMINOPHEN 325 MG TAB PO PRN (09:45)
--- NOTE | 2017-05-27 09:54 | [facility] Operative Report ---
Operative Report Operative Date May 27, 2017. Pre-Operative Diagnosis Degenerative Joint Disease, Left Knee Post-Operative Diagnosis Degenerative Joint Disease, Left Knee Procedure(s) Performed Left Total Knee Arthroplasty Surgeon Dr. Bernardo Funez Portable Trackman Surgeon(s) Vandana Morfin PA-C, nupur murillo, student Estimated Blood Loss 25ML Findings left knee DJD Specimens Permanent Solution: A.) Left Knee Bone and Tissue Drains None Anesthesia Spinal with peripheral nerve block Complication(s) None Disposition Recovery Room / PACU Indications Patient is a 81 year old female, with complaints of left knee pain, progressively worsening pain. Failed conservative treatment. Surgical intervention discussed, she wished to proceed with surgical intervention. Risks /complications discussed, informed consent obtained. Description of Procedure Patient was taken to the operating room, given spinal anesthesia with peripheral nerve block. She was given 1gm IV Ancef for surgical prophylaxis. Time out performed, prepped and draped in routine sterile fashion. I was present during the entire case, please see Dr. Funez's operative report for further detail. Patient was taken to the recovery room in stable condition. I attest to the content of the Intraoperative Record and any orders documented therein. Any exceptions are noted below.
--- NOTE | 2017-05-27 09:59 | Anesthesiology Progress Note ---
Anesthesia Post Op Note Date & Time May 27, 2017 at 09:59 Vital Signs Pain Intensity: 0 Vital Signs Past 12 Hours Date Time Temp Pulse Resp B/P (MAP) Pulse Ox O2 Delivery O2 Flow Rate FiO2 05/27/17 09:39 37.1 82 18 117/75 96 Mask 10 05/27/17 05:36 36.8 75 20 139/79 (99) 95 Room Air Notes Mental Status: alert / awake / arousable, participated in evaluation Pt Amnestic to Procedure: Yes Nausea / Vomiting: adequately controlled Pain: adequately controlled Airway Patency, RR, SpO2: stable & adequate BP & HR: stable & adequate Hydration State: stable & adequate Neuraxial Anesthesia: was administered, sensory block is resolving Anesthetic Complications: no major complications apparent
[2017-05-27] MEDS ORDERED: EpHEDrine SULFATE INJ 50 MG/ML AMP IV PRN (10:00)
[2017-05-27] MEDS ORDERED: ATROPINE SULFATE 0.1 MG/ML 5ML SYR IV PRN (10:00)
--- NOTE | 2017-05-27 10:06 | DIAGNOSTIC IMAGING REPORT ---
LEFT KNEE 2 VIEWS History: Left total knee arthroplasty. Degenerative arthritis. Postop. FINDINGS: The patient is status post a left total knee arthroplasty. The hardware is intact. No fracture or dislocation. Skin juan a are in place. IMPRESSION: Left total knee arthroplasty. No evidence for hardware complication. Electronically signed by: Mikhail Hernandez M.D. 05/27/2017 10:05 AM Dictated Date/Time: 05/27/2017 10:04 AM
--- NOTE | 2017-05-27 10:07 | OPERATIVE REPORT ---
DATE OF OPERATION: 05/27/2017 PREOPERATIVE DIAGNOSIS: Osteoarthritis, left knee. POSTOPERATIVE DIAGNOSIS: Same. PROCEDURE: Left total knee arthroplasty. SURGEON: Bernardo Funez MD. AUTOMATIC TRANSMISSION MECHANIC: Vandana Morfin, physician's assistant field hockey coach. No resident or fellow available. SECOND AUTOMATIC TRANSMISSION MECHANIC: Alison Hernandez, student. ANESTHESIA: Spinal with sedation and peripheral nerve block. INDICATIONS OF PROCEDURE: The patient is an 81-year-old female with osteoarthritis of her left knee refractory to nonsurgical methods of management. PROCEDURE IN DETAIL: Informed consent was obtained. The patient was identified as Kandi Hardy. She identified the operative site as the left knee. I marked it with my initials and a preop surgical time out was performed. A preop dose of IV antibiotics was given. She was positioned supine on the OR table. The anesthetic was administered. A bump was placed under the left hip. A tourniquet on the left thigh and a padded post under the knee for positioning. The limb was prepped and draped in the usual sterile fashion. DVT prophylaxis intraoperatively with foot pumps and postoperatively with Coumadin or Lovenox. The exam under anesthesia showed that she had trace LCL laxity in mid position. The knee was otherwise stable. She had full extension and flexion to about 125 degrees. Cruciate stability was intact. The limb was prepped and draped in the usual sterile fashion. The limb was exsanguinated with the Esmarch, tourniquet inflated to 225 mmHg. A midline longitudinal incision was made followed by medial parapatellar arthrotomy. A small bony excrescence on the tibial tubercle was removed with a rongeur. The retropatellar fat pad was resected. There were largely grade 3 and 4 changes on the patella. Synovial reflection in the lateral gutter was released. The MCL was released off the proximal medial tibia. Osteophytes were noted on the medial tibia and femur and excised. The lateral compartment was relatively normal. The cruciates were intact. There was an area at the size of a quarter and an nickel on the femur where it was down to bone. The remainder was grade 3 and 2 chondrosis. This was medially. On the medial tibia, there was an area of the size of a dime or nickel of cartilage loss. The cruciates were sacrificed and the knee was subluxated. The menisci were removed. Water Softener Installer hole was drilled into the proximal tibia just anterior to the lateral tibial spine. The intramedullary alignment guide was inserted followed by the 0 degree cutting block. This was affixed to remove 10 mm off of the high side laterally. This was pinned into place and confirmed with the extramedullary alignment amie. This cut was made and sized to a 2.5. A ship pilot hole was drilled into the distal femur followed by insertion of the distal femoral cutting block. This was set to 12 mm depth and 5 degrees of valgus based upon preoperative templating. This was pinned into place. The cut was made. The epicondylar axis was marked out. The distal femoral sizing block was applied and sized to a 2.5. The appropriate external rotation drill holes were made which matched the epicondylar axis. The size 2.5 anterior down cutting block was applied. The collateral ligaments were protected and the cut was made. The extension gap was a symmetric 10 with the knee fully straightened. The flexion gap was 10 laterally but only 8 medially due to some tightness. I then went ahead and released a little bit more of the MCL distally and released the semimembranosus tendon proximally. This helped some, but still not completely. I eventually went ahead and when I applied the tibial component shifted it laterally and resected the uncapped medial bone which effectively lengthened the MCL and corrected the tightness in flexion. The box cutting guide was applied, lateralized and this cut was made followed by application of the femoral component. The tibia was exposed and the aforementioned maneuver was performed. The keel was prepared with the drill and punch and the trial components were inserted. The knee was fully straightened with no laxity at 0 or 90 degrees. In mid position, there was trace varus valgus laxity present. Attention was turned to the patella. Marginal osteophytes were removed. The patellar thickness was 21 mm. A 32 patella was selected. The guide was set to preserve 14 mm of bone and after the cut 13 mm of bone remained. The paddle was medialized and distalized and appropriately aligned with the knee in slight flexion. The lug holes were drilled and the patella component showed lift off with flexion. The components were removed from the knee. The canals were plugged and the bony surfaces were meticulously prepared with pulsatile lavage. Ortho joint mix was injected into the back of the knee. Two bags of Simplex P cement were mixed using vacuum technique and while the cement was in a doughy state, the components were inserted, femur, tibia and patella. The knee was held in full extension with spacer placement until the cement had hardened. During this time, the remainder of the ortho joint mix was injected and Betadine lavage was performed. The tourniquet was let down after 85 minutes of inflation. Meticulous hemostasis was performed. Trialing was done and the size 10 thick polyethylene insert was appropriate based upon the aforementioned laxity pattern and the patellar tracking was fine with the no hands technique. Several small fragments of cement were evacuated out of the back of the knee. The knee was copiously irrigated with pulsatile lavage and a final polyethylene was inserted. Composite patellar thickness was 21 mm. The gravity assisted flexion with the extensor mechanism closed was 120 degrees. The extensor mechanism was closed above the equator of the patella with interrupted #2 FiberWire below the equator with running and interrupted #1 Vicryl. The skin was closed in layers with 0 and 2-0 Vicryl and juan a on the skin. A soft sterile dressing was applied along with a full length Arvin wrap. The patient was awakened from anesthesia without difficulty and taken to the recovery room in stable condition. The resected bone was sent for specimen. There were no complications. Counts were correct at the end of the case. Blood loss was 25 mL. At the conclusion of the operation, I spoke to the patient's family and informed them of my findings and gave detailed postoperative instructions. She will be rehabilitated according to the postop total knee protocol. Lovenox will begin the evening of surgery. Components inserted were the J[employer]J PFC sigma rotating platform knee, a size 2.5 left posterior stabilized femur, a size 2.5 mobile bearing keeled tibial tray, a 32 mm oval dome patella and a size 10-mm thick size 2.5 rotating platform polyethylene insert posterior stabilized. I attest to the content of the Intraoperative Record and any orders documented therein. Any exception s are noted below.
[2017-05-27] MEDS: KETOROLAC TROMETHAMINE 15 MG/ML VIAL IV. SCH ×2 (12:33→17:36)
[2017-05-27] MEDS: D5W AND 1/2NSS + 20MEQ KCL 1,000 ML IV SCH ×2 (12:33→21:57)
--- NOTE | 2017-05-27 13:06 | Orthopedic Progress Note ---
Orthopedic Progress Note Date of Service May 27, 2017. Subjective Post OP Day: 0 Reports: feeling well, pain controlled w PO medications, Denies: complaints, chest pain, SOB, nausea / vomiting, light headedness, calf pain Additional Notes: Tolerating diet, sitting up eating lunch. States that she "feels good". Objective calves soft nontender, capillary refill less than 2 sec., dressing C/D/I, A&O x3 , toes mobile Normal plantar flexion strength, 4/5 dorsiflexion. 2+ distal pulses left foot, normal sensation left foot. Date Time Temp Pulse Resp B/P (MAP) Pulse Ox O2 Delivery O2 Flow Rate FiO2 05/27/17 12:42 90 118/66 (83) 94 Room Air 05/27/17 11:45 85 16 100/65 (77) 94 05/27/17 11:22 88 18 129/71 (90) 94 05/27/17 10:45 Nasal Cannula 2.0 05/27/17 10:45 36.4 75 16 106/69 (81) Nasal Cannula 2.0 05/27/17 10:45 Nasal Cannula 2.0 05/27/17 10:25 0 18 104/60 94 Nasal Cannula 2 05/27/17 10:15 37.1 78 24 108/64 94 Nasal Cannula 2 05/27/17 10:05 83 12 123/59 94 Nasal Cannula 2 05/27/17 09:55 37.1 98 12 113/71 96 Nasal Cannula 2 05/27/17 09:45 78 15 123/69 96 Nasal Cannula 2 05/27/17 09:39 37.1 82 18 117/75 96 Mask 10 05/27/17 05:36 36.8 75 20 139/79 (99) 95 Room Air Assessment & Plan Assessment: POD 0 - s/p Left TKA Plan: Continue OOB/WBAT LLE with knee immobilizer on. Regular diet as ordered PT/OT Lovenox to start tonight for DVT prophylaxis. Plans for discharge to her home with home health possibly tomorrow Dr. Funez present for visit. Discharge Planning Discharge Planning: home with home health Pain Management: Percocet, Ultram DVT Prophylaxis: TEDs, Lovenox (30mg BID x 28 days) Therapy: Physical Therapy
[2017-05-27] MEDS: CEFAZOLIN IV 1,000 MG in SYRINGE 0 ML IV SCH ×2 (14:29→21:57)
[2017-05-27] MEDS: DOCUSATE SODIUM 100 MG CAP PO SCH (20:49)
[2017-05-27] MEDS: ENOXAPARIN 30 MG/0.3 ML SYR SQ SCH (20:50)
[2017-05-27] MEDS: ASPIRIN 81 MG ECTAB PO SCH (20:50)
[2017-05-27] MEDS: SIMVASTATIN 20 MG TAB PO SCH (20:50)
[2017-05-28] MEDS: KETOROLAC TROMETHAMINE 15 MG/ML VIAL IV. SCH ×2 (00:59→05:48)
[2017-05-28 03:25] VITALS: BP 103/62; PULSE 65; TEMP 36.5; O2SAT 96
[2017-05-28] MEDS: LEVOTHYROXINE 150 MCG TAB PO SCH (05:49)
[2017-05-28 06:57] LABS: HEMATOCRIT 29.6 % (37-47); HEMOGLOBIN 9.9 g/dL (12.0-16.0); MEAN CELL VOLUME 98.7 fL (80-100); MEAN CORPUSCULAR HGB CONC 33.4 g/dl (32-36); MEAN PLATELET VOLUME 9.8 fL (7.4-10.4); PLATELET COUNT 217 K/uL (130-400); RED CELL DISTRIBUTION WIDTH CV 12.4 % (11.5-14.5); RED CELL DISTRIBUTION WIDTH SD 44.7 fL (36.4-46.3); WHITE BLOOD COUNT 10.99 K/uL (4.8-10.8)
[2017-05-28 07:10] VITALS: BP 103/63; PULSE 56; TEMP 36.6; O2SAT 96
[2017-05-28] MEDS: D5W AND 1/2NSS + 20MEQ KCL 1,000 ML IV SCH (07:23)
[2017-05-28 07:27] LABS: CALCIUM 8.2 mg/dl (8.5-10.1); CREATININE 1.12 mg/dl (0.60-1.20); POTASSIUM 3.8 mmol/L (3.5-5.1)
[2017-05-28] MEDS ORDERED: DEXAMETHASONE 4 MG TAB PO SCH (07:30)
--- NOTE | 2017-05-28 08:54 | Orthopedic Progress Note ---
Orthopedic Progress Note Date of Service May 28, 2017. Subjective Post OP Day: 1 Reports: feeling well, pain controlled w PO medications, Denies: complaints, chest pain, SOB, nausea / vomiting, light headedness, calf pain Additional Notes: Sitting up eating breakfast Objective calves soft nontender, N/V intact, capillary refill less than 2 sec., dressing C /D/I, A&O x3, toes mobile Strength with dorsiflexion and plantarflexion 5/5. Distal sensation intact. Distal pulses 1+ Date Time Temp Pulse Resp B/P (MAP) Pulse Ox O2 Delivery O2 Flow Rate FiO2 05/28/17 07:15 Room Air 05/28/17 07:10 36.6 56 16 103/63 (76) 96 Room Air 05/28/17 03:25 36.5 65 16 103/62 (76) 96 Room Air 05/28/17 01:00 Room Air 05/27/17 23:08 36.5 72 18 93/54 (67) 95 Room Air 05/27/17 19:00 36.6 77 16 107/57 (74) 95 Room Air 05/27/17 16:35 36.8 74 16 107/58 (74) 92 Room Air 05/27/17 15:20 Room Air 05/27/17 13:45 90 16 101/58 (72) 94 05/27/17 12:42 90 118/66 (83) 94 Room Air 05/27/17 11:45 85 16 100/65 (77) 94 05/27/17 11:22 88 18 129/71 (90) 94 05/27/17 10:45 Nasal Cannula 2.0 05/27/17 10:45 36.4 75 16 106/69 (81) Nasal Cannula 2.0 05/27/17 10:45 Nasal Cannula 2.0 05/27/17 10:25 0 18 104/60 94 Nasal Cannula 2 05/27/17 10:15 37.1 78 24 108/64 94 Nasal Cannula 2 05/27/17 10:05 83 12 123/59 94 Nasal Cannula 2 05/27/17 09:55 37.1 98 12 113/71 96 Nasal Cannula 2 05/27/17 09:45 78 15 123/69 96 Nasal Cannula 2 05/27/17 09:39 37.1 82 18 117/75 96 Mask 10 Laboratory Results 24 Hours: Test 1/24/18 06:25 Hematocrit 29.6 % Hemoglobin 9.9 g/dL Assessment & Plan Assessment: POD 1 - s/p Left TKA Acute blood loss anemia Plan: Continue OOB/WBAT LLE Regular diet as ordered H/H stable - will monitor, no need for transfusions at this time PT/OT today Lovenox 30mg BID for DVT prophylaxis. AV impulse boots/GIBRAN stocking. Plans for discharge to her home with home health possibly later today or tomorrow Patient states that she has a walker at home to use. Will discuss findings with Dr. Funez Discharge Planning Discharge Planning: home with home health Pain Management: Percocet, Ultram DVT Prophylaxis: TEDs, Lovenox (30mg BID x 28 days) Therapy: Physical Therapy
[2017-05-28] MEDS ORDERED: ACET-1047 PO (08:57)
[2017-05-28] MEDS ORDERED: OXYC-57 PO (08:57)
[2017-05-28] MEDS ORDERED: CLC100 PO (08:57)
[2017-05-28] MEDS ORDERED: LVNIS30 SQ (08:57)
[2017-05-28] MEDS ORDERED: ULT50X PO (08:57)
[2017-05-28] MEDS: ENOXAPARIN 30 MG/0.3 ML SYR SQ SCH ×2 (09:22→20:45)
[2017-05-28] MEDS: MULTIVITAMIN TAB PO SCH (09:22)
[2017-05-28] MEDS: PANTOprazole SOD 40 MG TAB PO SCH (09:22)
[2017-05-28] MEDS: DOCUSATE SODIUM 100 MG CAP PO SCH ×2 (09:22→20:44)
[2017-05-28] MEDS: CHOLECALCIFEROL 1000 INTER.UNIT TAB PO SCH (12:51)
[2017-05-28] MEDS: LOSARTAN POTASSIUM 50 MG TAB PO SCH (12:52)
[2017-05-28] MEDS: AMILORIDE/HCTZ 5-50 MG TAB PO SCH (12:52)
--- NOTE | 2017-05-28 13:05 | Anesthesiology Progress Note ---
Anesthesia Post Op Note Date & Time May 28, 2017 at 13:03 Vital Signs Pain Intensity: 0.0 Vital Signs Past 12 Hours Date Time Temp Pulse Resp B/P (MAP) Pulse Ox O2 Delivery O2 Flow Rate FiO2 05/28/17 07:15 Room Air 05/28/17 07:10 36.6 56 16 103/63 (76) 96 Room Air 05/28/17 03:25 36.5 65 16 103/62 (76) 96 Room Air Notes Mental Status: alert / awake / arousable, participated in evaluation Pt Amnestic to Procedure: Yes Nausea / Vomiting: adequately controlled Pain: adequately controlled Airway Patency, RR, SpO2: stable & adequate BP & HR: stable & adequate Hydration State: stable & adequate Awake alert, up in chair, toleratiing activity well. Pain controlled with medication Pain scale 2. No complaints with anesthesia care.
[2017-05-28 15:38] VITALS: BP 109/68; PULSE 70; TEMP 36.6; O2SAT 94
--- NOTE | 2017-05-28 19:18 | PROGRESS NOTE ---
DATE: 05/28/2017 No problems reported. She has done well with physical therapy. Her pain is well controlled. Her vital signs are stable. She is afebrile. Urine output is adequate. Her white count is 11, likely secondary to stress and steroids. Hematocrit 30, platelet count is 217. She has 5/5 ankle and toe plantar flexion and dorsiflexion strengths and she has a 1+ palpable dorsalis pedis pulse. PLAN: Home with services. She will continue to do rehab per protocol. She will at this time continue with her Lovenox. Plan on dressing change in the morning.
[2017-05-28] MEDS: CeleBREX 200 MG CAP PO SCH (20:44)
[2017-05-28] MEDS: SIMVASTATIN 20 MG TAB PO SCH (20:45)
[2017-05-28] MEDS: ASPIRIN 81 MG ECTAB PO SCH (20:45)
[2017-05-28 22:54] VITALS: BP 122/60; PULSE 71; TEMP 36.5; O2SAT 97
[2017-05-29] MEDS: LEVOTHYROXINE 150 MCG TAB PO SCH (06:22)
[2017-05-29 06:42] LABS: PTT PATIENT 24.7 SECONDS (21.0-31.0)
[2017-05-29 07:56] VITALS: BP 107/73; PULSE 65; TEMP 36.5; O2SAT 96
[2017-05-29] MEDS: MULTIVITAMIN TAB PO SCH (09:18)
[2017-05-29] MEDS: PANTOprazole SOD 40 MG TAB PO SCH (09:18)
[2017-05-29] MEDS: CeleBREX 200 MG CAP PO SCH (09:18)
[2017-05-29] MEDS: DOCUSATE SODIUM 100 MG CAP PO SCH (09:18)
[2017-05-29] MEDS: ENOXAPARIN 30 MG/0.3 ML SYR SQ SCH ×2 (09:19→16:06)
--- NOTE | 2017-05-29 11:11 | Orthopedic Progress Note ---
Orthopedic Progress Note Date of Service May 29, 2017. Subjective Post OP Day: 1 Reports: feeling well, pain controlled w PO medications, Denies: complaints, chest pain, SOB, nausea / vomiting, light headedness, calf pain Additional Notes: sitting in a chair. states her will come for her this afternoon. Objective calves soft nontender, N/V intact, capillary refill less than 2 sec., dressing C /D/I, incision C/D/I, A&O x3, toes mobile, CMS intact No active drainage from wound. Date Time Temp Pulse Resp B/P (MAP) Pulse Ox O2 Delivery O2 Flow Rate FiO2 05/29/17 08:00 Room Air 05/29/17 07:56 36.5 65 17 107/73 (84) 96 Room Air 05/28/17 22:54 36.5 71 16 122/60 (80) 97 Room Air 05/28/17 19:50 Room Air 05/28/17 15:38 36.6 70 16 109/68 (82) 94 Room Air Assessment & Plan Assessment: POD 2 - s/p Left TKA Acute blood loss anemia Plan: Continue OOB/WBAT LLE Regular diet as ordered PT/OT today Lovenox 30mg BID for DVT prophylaxis. AV impulse boots/GIBRAN stocking. Plans for discharge to her home with home health today Silverlon dressing placed today. will remain in place for 7 days Patient states that she has a walker at home to use. Will discuss findings with Dr. Funez Discharge Planning Discharge Planning: home with home health Pain Management: Percocet, Ultram DVT Prophylaxis: TEDs, Lovenox (30mg BID x 28 days) Therapy: Physical Therapy
[2017-05-29] MEDS: AMILORIDE/HCTZ 5-50 MG TAB PO SCH (12:31)
[2017-05-29] MEDS: LOSARTAN POTASSIUM 50 MG TAB PO SCH (12:31)
[2017-05-29] MEDS: CHOLECALCIFEROL 1000 INTER.UNIT TAB PO SCH (12:31)
--- NOTE | 2017-05-29 13:54 | Discharge Instructions ---
Discharge Instructions Date of Service May 27, 2017. Admission Reason for Admission: Left Knee Osteoarthritis Discharge Discharge Diagnosis / Problem: Left knee s/p total knee replacement Discharge Goals Goal(s): Decrease discomfort, Improve function, Increase independence Activity Recommendations Activity Limitations: per Instructions/Follow-up section Exercise/Sports Limitations: until after follow-up appointment Shower/Bathe: keep incision dry Weightbearing Status: Left weightbearing (as tolerated) . Instructions / Follow-Up Instructions / Follow-Up New Medicine: * You will likely be taking one or more of these medications: 1. Lovenox - You will be on Lovenox for 4 weeks after surgery to prevent blood clots. Aspirin, 81 mg is okay to take while on Lovenox. We will ask you to get a CBC on Friday, June 02, 2017 2. Percocet - Take, as directed, when you need it, every four to six hours to control your pain. 3. Tramadol-Take, as directed, one you need it, every 4-6 hours to control your pain 4. Colace & Senokot - Take to prevent constipation which can be caused by narcotics. These can be bought [id number] at the pharmacy * The most common side effects of pain medicine and iron are nausea and constipation. If nausea or constipation is too much of a problem or if you have any questions about your new medicines or doses, call [facility] at . We will try to help you manage these issues. VERY IMPORTANT TO READ AND REVIEW" Blood Clots and Blood Thinning Medicine: * You are given Lovenox during the immediate post-operative period to lessen the risk of blood clots forming in your legs and/or lungs. Lovenox is usually given for 4 weeks after surgery. * You will need to obtain a CBC on Friday, June 02, 2017. Prescription is provided upon discharge. Physical Therapy: * Do your physical therapy at home. These are the exercises you learned while in the hospital (quad sets, leg raises, calf pumps, gluteal squeezes, knee bending, and heel props.) You should do these exercises 3-4 times per day. * You will either go to inpatient rehab ([facility]), home with Home Therapy and nursing or home with outpatient rehab. You should do rehab with the therapist 2-3 times per week. You should do therapy on your own daily. * You may bear full weight on your leg with crutches or walker unless otherwise advised. Home Exercise: * You were shown a series of exercises (heel props, heel slides, etc.) in the hospital. Do these exercises three to four times each day including the exercises you were shown in physical therapy. Walking: * You may be up for short periods of time. Standing and walking for 1-2 hours at a time is usually okay. You should not stand or walk for excessive periods of time as this may cause increased pain and swelling. SELF CARE INSTRUCTIONS AFTER TOTAL KNEE REPLACEMENT A. You may need to continue a physical therapy program after discharge from the hospital. There are several options available to you. Your doctor will assist you in selecting the best one for you. 1. An out-patient facility 2 to 3 times a week for therapy or home therapy. 2. Continue working on all exercises taught to you in the hospital. Your goals should be to increase bending of your knee to 90 degrees and beyond and to fully straighten your knee. B. Your therapist will notify you when you are able to progress from a walker to a cane. C. Wear TEDS as much as possible.~ They may be removed at night for laundering. D. Do not place a pillow behind your knee when resting. A pillow at your ankle is okay. E. Ice your knee 15-20 minutes every 2-3 hours and elevate it above the level of your heart. F. You may shower on the fourth day after surgery using regular soap and water. Do not submerge until the wound is completely healed (approximately 2 weeks ). Until the fourth day after surgery, cover the incision/bandage with a bag or plastic wrap. G. Anyone who is touching your surgical incision area should wash their hands and wear gloves. H. You have a Silverlon dressing on your right knee incision, keep intact until Friday or Friday, then you may remove and cover with gauze pad to keep juan a from snagging on GIBRAN stockings. You may shower with Silverlon dressing on. VERY IMPORTANT TO READ AND REVIEW A. YOU WILL BE GIVEN AN ORDER AT DISCHARGE FOR PT/INR (BLOOD WORK). PLEASE HAVE THIS DONE INSTRUCTED. PLEASE CALL OUR OFFICE AFTER YOUR BLOODWORK IS COMPLETE SO WE CAN TRACK YOUR RESULTS. IF YOU ARE GOING TO OUTPATIENT PHYSICAL THERAPY, YOU WILL NEED TO GO TO OUTPATIENT TESTING TO HAVE IT DRAWN. B. There are a few signs you need to watch for after you are home. Call [facility] if you notice any of the followin. Increased severe knee pain. Some pain is expected especially when you exercise. 2. Increased swelling in your leg or knee; pain or swelling of the calf muscle in either lower leg. 3. Any fluid drainage from the incision. 4. Shortness of breath or chest pain. 5. Numbness and tingling in the surgical extremity C. Please call [facility] at if you have any concerns or questions about your operation or recovery. The doctor or his nurse will return your call promptly. D. Do not have any elective dental work or other elective procedures done for 6 weeks after your knee replacement. When you have any invasive procedure (dental cleaning, extraction, colonoscopy etc) performed, you will need to take antibiotics to prevent infection from developing in your artificial joint. Tell your other health care providers you have an artificial joint. My office will supply you with further information and the antibiotics. Call your doctor if: * Temperature above 101 degrees F. * Pain not relieved by pain medicine ordered. * Increased drainage or redness from incision. * Notify your doctor with any questions or concerns. Follow-up Visit: You will follow-up with Dr. Funez 10-14 days after surgery. The office number is . * Your follow-up appointment with Dr. Funez is scheduled for June 10, 2017 at 12:00 PM. Avoid all tobacco products. If you need help to stop smoking, call [place] at . This is a free call. Current Hospital Diet Patient's current hospital diet: Regular Diet Discharge Diet Recommended Diet: Regular Diet Procedures Procedures Performed: Left Total Knee Arthroplasty Pending Studies Studies pending at discharge: no Medical Emergencies . Who to Call and When: Medical Emergencies: If at any time you feel your situation is an emergency, please call 911 immediately. . Non-Emergent Contact Non-Emergency issues call your: Surgeon Call Non-Emergent contact if: temperature is above 101, your pain is not controlled, your pain is worsening, your pain is concerning you, wound has increased drainage, wound has increased redness, wound has increased pain, you have any medication questions . "Provider Documentation" section prepared by Vandana Morfin. . VTE Core Measure Inpt VTE Proph given/why not?: Enoxaparin (Lovenox)SQ (30 mg twice daily 1 month postoperatively), Carlyn Riggins [place] Drug Monitoring Program Search Results: patient reviewed within database, no issues identified
--- NOTE | 2017-05-29 14:22 | PROGRESS NOTE ---
DATE: 05/29/2017 DATE: 05/29/2017 She is resting comfortably in a chair, no problems are reported. I have reviewed with her discharge instructions, medications, things to watch out for and her followup. She will have home health services. We talked about wound hygiene. She has been afebrile. Her vital signs are stable. Jose Nguyen's note from earlier today is reviewed. Her wound has been fine and she has a Silverlon dressing in place. She will follow up as scheduled.
[2017-05-29 14:23] VITALS: BP 107/73; PULSE 65; TEMP 36.5; O2SAT 96
[2017-05-29 16:48] VITALS: BP 109/71; PULSE 69; TEMP 36.6; O2SAT 96
--- NOTE | 2017-05-30 10:13 | Discharge Summary ---
Discharge Summary Date of Service May 29, 2017. Discharge Summary Admission Date: May 27, 2017 at 06:45 Discharge Date: May 29, 2017 Discharge Disposition: Home with services Principal Diagnosis: DJD Left knee Secondary Diagnoses/Problems: 1. Hypertension 2. High cholesterol 3. Hypothyroidism Procedures: Left total knee arthroplasty May 27, 2017 Pending Studies/Follow-Up: Follow-up appointment scheduled with Dr. Funez on June 10, 2017 at 12: 00 PM Medication Reconciliation New Medications: Oxycodone/Acetaminophen 5MG/325MG (Percocet 5MG/325MG) Tab 1-2 TABLETS PO Q4H PRN for Pain, #30 TAB Acetaminophen (Mapap) 325 Mg Tab 650 MG PO Q6H PRN for PAIN/TEMP GREATER THAN 38 C for 14 Days, #112 TAB take for mild pain Docusate Sodium (Docusate Sodium) 100 Mg Cap 100 MG PO BID for 30 Days, #60 CAP Enoxaparin (Lovenox) 30 Mg/0.3 Ml Inj 30 MG SQ Q12H for 27 Days, #54 SYR 0 Refills Tramadol HCl (Tramadol HCl) 50 Mg Tab 50-100 MG PO Q4H PRN for Pain, #30 TAB take for mild-moderate pain Continued Medications: Amiloride/Hctz (Amiloride/Hydrochlorothia 5-50 mg) 1 Ea Tab 1 TAB PO NOON Aspirin (Aspirin 81) 81 Mg Tab 81 MG PO HS Cholecalciferol (Vitamin D 1000 Unit) 1,000 Unit Cap 2000 INTER.UNIT PO NOON, CAP Levothyroxine Sodium (Levothyroxine Sodium) 150 Mcg Tab 1 TAB PO QAM Loratadine (Claritin) 10 Mg Tab 10 MG PO PRN, TAB Losartan Potassium (Cozaar) 50 Mg Tab 50 MG PO NOON, TAB Multivitamin (Multivitamin) Tab 1 TAB PO NOON, 0 Refills Simvastatin (Zocor) 20 Mg Tab 20 MG PO QPM Triamcinolone Acet (Triamcinolone Acetonide) 45 Appln/15 Gm Oint 1 APPLN TOP BID PRN for PRN for 7 Days, #1 TUBE Discontinued Medications: Acetaminophen (Tylenol Arthritis Ext Rel) 650 Mg Cplt 650-1330 MG PO Q8H PRN for Pain, CAP Admission Information HPI (per Admitting provider): Mrs. Hardy is an 81-year-old female who is scheduled for an elective left total knee arthroplasty with Dr. Bernardo Funez at the [facility] in May 27, 2017. She states that her knee pain has been ongoing for many years. Most of her knee pain is on the inside aspect of her knee but it does Radiate throughout the entire knee. Her pain is increased with activity and weightbearing of her left knee. She does have decreasing activities of daily living due to pain in her left knee. She has pain with range of motion and limited motion in her left knee due to pain. She denies any known joint effusions but states that her left knee is always more swollen than the right. Aggravating activities include walking, going up and down steps, rest, sitting in one position for too long. She also gets night pain occasionally. Prior treatments include nonsteroidal anti-inflammatories, physical therapy, corticosteroid injections and viscous supplementations. She states there is nothing that gets her long-lasting relief. Her pain is continued to progressively worsen. Surgical intervention was discussed. She wished to proceed with surgery and was scheduled for elective left total knee arthroplasty. Physical Exam (per Admitting): General Appearance: WD/WN, no apparent distress Head: normocephalic, atraumatic Eyes: normal inspection, PERRL, EOMI, sclerae normal ENT: normal ENT inspection, hearing grossly normal, TMs normal, pharynx normal Neck: supple, no adenopathy, thyroid normal, no carotid bruits, trachea midline Respiratory/Chest: chest non-tender, lungs clear, normal breath sounds, no respiratory distress, no accessory muscle use Cardiovascular: regular rate, rhythm, no edema, no murmur, normal peripheral pulses Abdomen/GI: normal bowel sounds, non tender, soft Extremities/Musculoskelatal: no calf tenderness, normal capillary refill, no pedal edema, + pertinent finding (She has no pain with range of motion of her left hip. She was not really short leg raise. Strength is 5/5. Range of motion is 0-125 of flexion. She is pain with palpation of her medial joint line. She is ligamentously stable. She does have a small effusion to her left knee. Posterior tibial and dorsalis pedis pulses are 1+.) Neurologic/Psych: no motor/sensory deficits, alert, normal mood/affect, oriented x 3 Skin: normal color, warm/dry, no rash Hospital Course Patient was admitted to [facility] after undergoing an elective left total knee arthroplasty on May 27, [address] Bernardo Funez. Her surgery was performed with spinal anesthesia in peripheral nerve block. She tolerated the procedure well without any intraoperative complications. She was given 1 g of IV Ancef for surgical prophylaxis. Her Ancef was continued for 24 hours postoperatively. Postoperative x-rays revealed a stable left total knee arthroplasty. She was allowed out of bed, weightbearing as tolerated left lower extremity with the assistance of a walker and knee immobilizer. Oral and IV pain medication was prescribed. Her pain was well-controlled throughout her inpatient stay. She was placed on Lovenox 30 mg twice a day for DVT prophylaxis to continue for 28 days postoperatively. Physical therapy and occupational therapy was consult. She did well on bed with Ambulation. She tolerated regular diet during her hospital stay. Case management and licensed master social worker was consulted. She requested to go home with home health. Referrals were made. Arrangements were set up. On postoperative day 2 her dressings on her left knee were changed and his Silverlon dressing was applied. Her incision at that time was clean dry and intact. She was deemed safe for home and was discharged to her home in stable condition on May 29, 2017. Total time spent on discharge = This includes examination of the patient, discharge planning, medication reconciliation, and communication with other providers. Discharge Instructions Discharge Instructions Date of Service May 27, 2017. Admission Reason for Admission: Left Knee Osteoarthritis Discharge Discharge Diagnosis / Problem: Left knee s/p total knee replacement Discharge Goals Goal(s): Decrease discomfort, Improve function, Increase independence Activity Recommendations Activity Limitations: per Instructions/Follow-up section Exercise/Sports Limitations: until after follow-up appointment Shower/Bathe: keep incision dry Weightbearing Status: Left weightbearing (as tolerated) . Instructions / Follow-Up Instructions / Follow-Up New Medicine: * You will likely be taking one or more of these medications: 1. Lovenox - You will be on Lovenox for 4 weeks after surgery to prevent blood clots. Aspirin, 81 mg is okay to take while on Lovenox. We will ask you to get a CBC on Friday, June 02, 2017 2. Percocet - Take, as directed, when you need it, every four to six hours to control your pain. 3. Tramadol-Take, as directed, one you need it, every 4-6 hours to control your pain 4. Colace & Senokot - Take to prevent constipation which can be caused by narcotics. These can be bought [id number] at the pharmacy * The most common side effects of pain medicine and iron are nausea and constipation. If nausea or constipation is too much of a problem or if you have any questions about your new medicines or doses, call [facility] at . We will try to help you manage these issues. VERY IMPORTANT TO READ AND REVIEW" Blood Clots and Blood Thinning Medicine: * You are given Lovenox during the immediate post-operative period to lessen the risk of blood clots forming in your legs and/or lungs. Lovenox is usually given for 4 weeks after surgery. * You will need to obtain a CBC on Friday, June 02, 2017. Prescription is provided upon discharge. Physical Therapy: * Do your physical therapy at home. These are the exercises you learned while in the hospital (quad sets, leg raises, calf pumps, gluteal squeezes, knee bending, and heel props.) You should do these exercises 3-4 times per day. * You will either go to inpatient rehab ([facility]), home with Home Therapy and nursing or home with outpatient rehab. You should do rehab with the therapist 2-3 times per week. You should do therapy on your own daily. * You may bear full weight on your leg with crutches or walker unless otherwise advised. Home Exercise: * You were shown a series of exercises (heel props, heel slides, etc.) in the hospital. Do these exercises three to four times each day including the exercises you were shown in physical therapy. Walking: * You may be up for short periods of time. Standing and walking for 1-2 hours at a time is usually okay. You should not stand or walk for excessive periods of time as this may cause increased pain and swelling. SELF CARE INSTRUCTIONS AFTER TOTAL KNEE REPLACEMENT A. You may need to continue a physical therapy program after discharge from the hospital. There are several options available to you. Your doctor will assist you in selecting the best one for you. 1. An out-patient facility 2 to 3 times a week for therapy or home therapy. 2. Continue working on all exercises taught to you in the hospital. Your goals should be to increase bending of your knee to 90 degrees and beyond and to fully straighten your knee. B. Your therapist will notify you when you are able to progress from a walker to a cane. C. Wear TEDS as much as possible.~ They may be removed at night for laundering. D. Do not place a pillow behind your knee when resting. A pillow at your ankle is okay. E. Ice your knee 15-20 minutes every 2-3 hours and elevate it above the level of your heart. F. You may shower on the fourth day after surgery using regular soap and water. Do not submerge until the wound is completely healed (approximately 2 weeks ). Until the fourth day after surgery, cover the incision/bandage with a bag or plastic wrap. G. Anyone who is touching your surgical incision area should wash their hands and wear gloves. H. You have a Silverlon dressing on your right knee incision, keep intact until Friday or Friday, then you may remove and cover with gauze pad to keep juan a from snagging on GIBRAN stockings. You may shower with Silverlon dressing on. VERY IMPORTANT TO READ AND REVIEW A. YOU WILL BE GIVEN AN ORDER AT DISCHARGE FOR PT/INR (BLOOD WORK). PLEASE HAVE THIS DONE INSTRUCTED. PLEASE CALL OUR OFFICE AFTER YOUR BLOODWORK IS COMPLETE SO WE CAN TRACK YOUR RESULTS. IF YOU ARE GOING TO OUTPATIENT PHYSICAL THERAPY, YOU WILL NEED TO GO TO OUTPATIENT TESTING TO HAVE IT DRAWN. B. There are a few signs you need to watch for after you are home. Call [facility] if you notice any of the followin. Increased severe knee pain. Some pain is expected especially when you exercise. 2. Increased swelling in your leg or knee; pain or swelling of the calf muscle in either lower leg. 3. Any fluid drainage from the incision. 4. Shortness of breath or chest pain. 5. Numbness and tingling in the surgical extremity C. Please call [facility] at if you have any concerns or questions about your operation or recovery. The doctor or his nurse will return your call promptly. D. Do not have any elective dental work or other elective procedures done for 6 weeks after your knee replacement. When you have any invasive procedure (dental cleaning, extraction, colonoscopy etc) performed, you will need to take antibiotics to prevent infection from developing in your artificial joint. Tell your other health care providers you have an artificial joint. My office will supply you with further information and the antibiotics. Call your doctor if: * Temperature above 101 degrees F. * Pain not relieved by pain medicine ordered. * Increased drainage or redness from incision. * Notify your doctor with any questions or concerns. Follow-up Visit: You will follow-up with Dr. Funez 10-14 days after surgery. The office number is . * Your follow-up appointment with Dr. Funez is scheduled for June 10, 2017 at 12:00 PM. Avoid all tobacco products. If you need help to stop smoking, call [facility]IT[facility] at . This is a free call. Current Hospital Diet Patient's current hospital diet: Regular Diet Discharge Diet Recommended Diet: Regular Diet Procedures Procedures Performed: Left Total Knee Arthroplasty Pending Studies Studies pending at discharge: no Medical Emergencies . Who to Call and When: Medical Emergencies: If at any time you feel your situation is an emergency, please call 911 immediately. . Non-Emergent Contact Non-Emergency issues call your: Surgeon Call Non-Emergent contact if: temperature is above 101, your pain is not controlled, your pain is worsening, your pain is concerning you, wound has increased drainage, wound has increased redness, wound has increased pain, you have any medication questions . "Provider Documentation" section prepared by Vandana Morfin. . VTE Core Measure Inpt VTE Proph given/why not?: Enoxaparin (Lovenox)SQ (30 mg twice daily 1 month postoperatively), Carlyn Riggins [place] Drug Monitoring Program Search Results: patient reviewed within database, no issues identified
== END 2017-05-29 17:28 | disposition home health service (06) | DRG 470 ==
LOC: C.ACU 05:07 → C.3E 06:45 → ENRESERV 10:08
PROVIDERS: ADMIT Physical Medicine & Rehabilitation Sports Medicine; ATTEND Physical Medicine & Rehabilitation Sports Medicine
PROC: 0SRD0J9 Replacement of Left Knee Joint with Synthetic Substitute, Cemented, Open Approach (ICD-10-PCS; principal; 2017-05-27 07:00)
DX: M17.12 Unilateral primary osteoarthritis, left knee (principal); D62 Acute posthemorrhagic anemia; I10 Essential (primary) hypertension; E03.9 Hypothyroidism, unspecified; E78.00 Pure hypercholesterolemia, unspecified; Z79.82 Long term (current) use of aspirin; Z79.899 Other long term (current) drug therapy

== ENCOUNTER 2020-05-16 21:05 | Observation (INO) ==
[2020-05-16] MEDS ORDERED: SODIUM CHLORIDE 0.9% 1000ML 500 ML IV ONE (21:17)
[2020-05-16 21:27] LABS: Basophils # (auto) 0.01 K/uL (0-0.2); Basophils % (auto) 0.2 %; Eosinophils # (auto) 0.15 K/uL (0-0.5); Eosinophils % (auto) 2.4 %; Hemoglobin 13.4 g/dL (12.0-16.0); Immature Granulocytes # (auto) 0.02 K/uL (0.00-0.02); Immature Granulocytes % (auto) 0.3 %; Lymphocytes % (auto) 33.2 %; Mean Corpuscular Hemoglobin 33.4 pg (25-34); Mean Corpuscular Hgb Conc 33.5 g/dL (32-36); Mean Corpuscular Volume 99.8 fL (80-100); Mean Platelet Volume 10.1 fL (7.4-10.4); Monocytes # (auto) 0.44 K/uL (0.11-0.59); Neutrophils % (auto) 56.9 %; Platelet Count 234 K/uL (130-400); RDW Coefficient of Variation 12.5 % (11.5-14.5); RDW Standard Deviation 45.9 fL (36.4-46.3); Red Blood Count 4.01 M/uL (4.2-5.4); White Blood Count 6.32 K/uL (4.8-10.8)
[2020-05-16 21:45] LABS: Partial Thromboplastin Ratio 0.8; Partial Thromboplastin Time 22.2 Seconds (21.0-31.0); Prothrombin Time 10.5 Seconds (9.0-12.0)
[2020-05-16 22:08] LABS: Alanine Aminotransferase 28 U/L (12-78); Albumin Level 3.7 gm/dl (3.4-5.0); Alkaline Phosphatase 73 U/L (45-117); Aspartate Aminotransferase 28 U/L (15-37); BUN Creatinine Ratio 24.1 (10-20); Bilirubin Direct 0.1 mg/dl (0-0.2); Bilirubin,Total 0.3 mg/dl (0.2-1); Blood Urea Nitrogen 22 mg/dl (7-18); Calcium 9.5 mg/dl (8.5-10.1); Carbon Dioxide 27 mmol/L (21-32); Chloride 107 mmol/L (98-107); Creatinine Clr Calc Pharmacy 46.9 ml/min; Est GFR (African American) 66.3; Est GFR (Non-African American) 57.2; Glucose 96 mg/dl (70-99); Lipase 152 U/L (73-393); Magnesium 2.2 mg/dl (1.8-2.4); Potassium 3.1 mmol/L (3.5-5.1); Sodium 142 mmol/L (136-145); Total Protein 6.9 gm/dl (6.4-8.2); Troponin I < 0.015 ng/ml (0-0.045)
[2020-05-16] MEDS ORDERED: OPTIRAY 320 125ml IV ONE (22:33)
--- NOTE | 2020-05-16 23:32 | History & Physical Report ---
Date of Service May 16, 2020 Assessment & Plan (1) Syncope: Kandi is an 84-year-old female with a history of vertigo, hypertension, and degenerative joint disease of the knee who presents with new onset A. fib after a syncopal event while having a wine with her daughter New atrial fibrillation EKG shows A. fib with RVR, rate tracing from 114-125 - No prior history of A. fib, previous EKGs NSR [id number] 4 points - No PE on CTA Spontaneous conversion while in the emergency department. New first-degree heart block observed. Regular rate at time of assessment. - Started on heparin gtt, no bolus - No history of bleeding, GI bleeds, or bleeding diathesis Recommend long-term anticoagulation, no contraindications to DOAC tx Syncope First episode of syncope EKG with new arrhythmia (A. fib) CThead: No acute findings, no ICH/signs of stroke/hemorrhage. CTA chest: No pulmonary emboli. No cardiomegaly. CXR: No acute findings [place] syncope score: Cannot place and low risk category due to new EKG change TTE pending - Carotid doppler pending Hypothyroidism - Prior hyperthyroid post radiation treatment in 1977 with subsequent hypothyroidism - TSH pending Hypertension Continue amiloride/hydrochlorothiazide Continue aspirin 81 mg daily Continue losartan Hyperlipidemia Simvastatin 20 mg DJD Continue Tylenol 650 mg p.o. as needed Diet: Heart healthy DVT prophylaxis: Heparin gtt Disposition: Medical/surgical telemetry CODE STATUS: Full Code (2) Hypertension: (3) Afib: (4) DJD (degenerative joint disease) of knee: History of Present Illness Primary Care Provider: Nate Rosen MD Kandi is an 84-year-old female with a history of vertigo, hypertension, and degenerative joint disease of the knee who presents with new onset A. fib after a syncopal event while having a wine with her daughter "Kenia" reports she was having dinner with her daughter and she felt completely fine. She reports her daughter left and Kenia was cleaning the pots and pans and the next thing she knew her neighbors (who are a doctor and nurse) were standing over here. She did not feel lightheaded or dizzy and did have any sensation of presyncope. When she woke up she reports she felt fairly normal after just a few minutes, but was told she an episode of emesis while passed out. Not sure of how much she threw up. Her neighbor (Dr. Hodge) insisted she stay lying down until EMS could evaluate her. Once the EMS services arrived she had an additional episode of emesis but didn't think she felt nauseus. She was not feeling faint or lightheaded. No chest pain, chest pressure. Thinks she might have had palpitations at the time, sensation was occuring while in the hospital bu thas since passed. Denies shortness of breath. Denies fevers, chills, sweats No recent illness Denies current nausea, constipation, diarrhea, and abdominal pain. She reports she has passed out before, but has been many years since last episode. Was never found to have an abnormal heart rhythm and never found a cause. She reports her last episode of syncope was ~40 years ago. Medications: Reviewed with pt. Medical Hx: HTN, hypothyroidism. DJD. No hx CAD/stroke SHX: reviewed Allergies: NKDA Social: Lives at home with her . Noone sick at home. Denies tobacco use, social alcohol 5 days per week 1 glass with dinner, denies recreational drug use. CODE STATUS: Full Code Allergies Allergy/AdvReac Type Severity Reaction Status Date / Time adhesive Allergy Unknown RED SKIN Verified 05/16/20 22:50 IRRITATION WITH SOME TAPES amlodipine Allergy Unknown LEGS Verified 05/16/20 22:50 SWELLING lisinopril Allergy Unknown lips Verified 05/16/20 22:50 swelling chlorhexidine AdvReac Intermediate Itching-PT Verified 05/16/20 22:50 DENIES ANY PROBLEMS Home Medications Medication Instructions Recorded Confirmed Type acetaminophen [Tylenol] 650 mg PO QID PRN 05/16/20 05/16/20 History amiloride-hydrochlorothiazide 1 tab PO DAILY 05/16/20 05/16/20 History aspirin [Aspir-Low] 81 mg PO DAILY 05/16/20 05/16/20 History cholecalciferol (vitamin D3) 50 mcg PO DAILY 05/16/20 05/16/20 History [Vitamin D3] levothyroxine [Synthroid] 150 mcg PO DAILY 05/16/20 05/16/20 History loratadine [Claritin] 10 mg PO DAILY PRN 05/16/20 05/16/20 History losartan 50 mg PO DAILY 05/16/20 05/16/20 History multivitamin 1 tab PO DAILY 05/16/20 05/16/20 History simvastatin 20 mg PO DAILY 05/16/20 05/16/20 History Past Med/Surg History Social History Smoking Status: Former smoker Tobacco Type: Cigarettes Feels Safe at Home: Yes Review of Systems Review of Systems: Constitutional: Denies fever, chills, malaise, weight change Eyes: Denies double vision, vision change, eye pain ENT: Denies ear pain, sore throat, sinus pain Cardiovascular: See HPI Respiratory: Denies shortness of breath, cough, sputum production, difficulty breathing Gastrointestinal:See HPI Genitourinary: Denies pain with urination, urinary urgency, urinary frequency Musculoskeletal: Denies weakness, muscle aches/pain, joint aches/pain Integumentary:Denies rash, lesions, bruising Neurological: Denies headache, numbness, tingling, focal weakness Physical Exam Physical Exam: General: A&Ox3. NAD. Cooperative. HEENT: Atraumatic, normocephalic. Pulm: CTAB A&P. -wheezes, -rales, -rhonchi. Symmetrical chest rise. No increase work of breathing. No respiratory distress. Cardiac: RRR, -mrg. Radial pulses intact and symmetrical. Abdominal: Nontender, nondistended, soft. BS present. CRANIAL NERVES: II: Pupils equal and reactive, no relative afferent pupillary defect, no VF cuts III, IV, : EOM intact, no gaze preference or deviation, no nystagmus. V: normal sensation in V1, V2, and V3 segments bilaterally VII: no asymmetry, no nasolabial fold flattening VIII: normal hearing to speech IX, X: normal palatal elevation, no uvular deviation XI: 5/5 head turn and 5/5 shoulder shrug bilaterally XII: midline tongue protrusion MOTOR: RUE: 5/5 medical record coder strength, finger flexion/extension, interosseus LUE: 5/5 medical record coder strength, finger flexion/extension, interosseus RLE: 5/5 to hip, ankle dorsiflexion/plantarflexion LLE: 5/5 to hip, ankle dorsiflexion/plantarflexion SENSORY: Normal to touch in upper and lower extremities without deficit or asymmetry Results & Data Results & Data ([facility]) Vital Signs (Past 12 Hours) Vital Signs Temp Pulse Resp BP Pulse Ox 05/16/20 22:50 125 H 21 99 05/16/20 22:01 115 H 17 114/66 96 05/16/20 21:31 116 H 13 124/87 99 05/16/20 21:22 36.4 C L 125 H 18 145/78 H 96 05/16/20 21:14 122 H 16 145/78 H 98 Supervising Physician Co-Signing Physician Notes Patient seen and examined, chart reviewed, case discussed with Dr. Titus and I agree with his assessment and plan as above. Briefly, patient is an 84yo female presenting after a syncopal event. Briefly in atrial fibrillation with spontaneous conversion to NSR while in the ER. Denies CP, dizziness, SOB, cough or illness. No additional complaints at this time On exam she is afebrile, HD stable, slightly anxious in appearance but nontoxic Skin - no rash HEENT - NC/AT, PERRL, EOMI Heart - +S1/S2, regular, no m/r/g Lungs - CTA Abd - +BS, soft, NT/ND Ext- No edeam, no clubbing/cyanosis Neuro - nonfocal Labs and images reviewed. K=3.1, troponin is negative x 1, Covid negative EKG with no acute ischemic changes Assessment/Plan: Syncopal event with no reported prodrome. Brief atrial fibrillation with no history of prior - s/p return to SR with 1st degree AV block -Telemetry monitoring -Check 2D echo -Heparin anticoagulation for now -Check carotid dopplers -Remainder of plan as above Resident Activity Tracking Resident Involvement: Resident Care Provided Care Provided: Adult Hospital Medicine
[2020-05-17] MEDS ORDERED: POTASSIUM CHLORIDE 10 MEQ TABCR PO STA (00:14)
--- NOTE | 2020-05-17 00:14 | Emergency Department Note ---
History of Present Illness General Chief complaint: Syncope Stated complaint: SYNCOPE/DIZZY/NAUSEA w/VOMITING Time Seen by Provider: 05/16/20 21:08 Source: EMS History of Present Illness Provider complaint: Syncope Onset (ago): day(s) 1 Associated symptoms: + nausea/vomiting, + syncope and + weakness; no confusion, no chest pain, no cough, no fever/chills, no headaches, no seizure and no shortness of breath Treatments prior to arrival: other (Intravenous fluids) 84-year-old female presents emergency department for syncope and dizziness. Patient states she was having dinner with her daughter when she got up and felt dizzy and then passed out. She states she landed on the floor. She reports feeling nauseous. She reports vomiting twice. No hematemesis coffee-ground emesis or bilious vomiting. No melena or hematochezia. No hematuria or dy suria. No chest pain or difficulty breathing. No loss of taste or smell. Home Medications Medication Instructions Recorded Confirmed Type acetaminophen [Tylenol] 650 mg PO QID PRN 05/16/20 05/16/20 History amiloride-hydrochlorothiazide 1 tab PO DAILY 05/16/20 05/16/20 History aspirin [Aspir-Low] 81 mg PO DAILY 05/16/20 05/16/20 History cholecalciferol (vitamin D3) 50 mcg PO DAILY 05/16/20 05/16/20 History [Vitamin D3] levothyroxine [Synthroid] 150 mcg PO DAILY 05/16/20 05/16/20 History loratadine [Claritin] 10 mg PO DAILY PRN 05/16/20 05/16/20 History losartan 50 mg PO DAILY 05/16/20 05/16/20 History multivitamin 1 tab PO DAILY 05/16/20 05/16/20 History simvastatin 20 mg PO DAILY 05/16/20 05/16/20 History Allergies Allergy/AdvReac Type Severity Reaction Status Date / Time adhesive Allergy Unknown RED SKIN Verified 05/16/20 22:50 IRRITATION WITH SOME TAPES amlodipine Allergy Unknown LEGS Verified 05/16/20 22:50 SWELLING lisinopril Allergy Unknown lips Verified 05/16/20 22:50 swelling chlorhexidine AdvReac Intermediate Itching-PT Verified 05/16/20 22:50 DENIES ANY PROBLEMS Past Med/Surg History Social History Smoking Status: Former smoker Tobacco Type: Cigarettes Feels Safe at Home: Yes Review of Systems A total of 10 systems reviewed and were otherwise negative Physical Exam Vital Signs Vital Signs - 24 hr 05/16/20 21:14 05/16/20 21:22 05/16/20 21:31 Temperature 36.4 C L Temperature Source Oral Pulse Rate 122 H 125 H 116 H Pulse Rate from SpO2 Sensor Respiratory Rate 16 18 13 Respiratory Effort / Characteristics Non-Labored Spontaneous Respiratory Depth Normal Respiratory Pattern Regular Blood Pressure 145/78 H 145/78 H 124/87 Blood Pressure Mean 97 100 94 Blood Pressure Position Lying Pulse Oximetry 98 96 99 Oxygen Delivery Method Room Air Room Air Room Air Sepsis Recent Fever Within 48 Hours No Sepsis New/Unexplained Change in Mental Status No Sepsis Action Taken by Nursing No Action Required 05/16/20 22:01 05/16/20 22:50 05/16/20 23:01 Temperature Temperature Source Pulse Rate 115 H 125 H 115 H Pulse Rate from SpO2 Sensor 111 H 123 H 119 H Respiratory Rate 17 21 14 Respiratory Effort / Characteristics Respiratory Depth Respiratory Pattern Blood Pressure 114/66 120/75 Blood Pressure Mean 78 94 Blood Pressure Position Pulse Oximetry 96 99 93 Oxygen Delivery Method Room Air Sepsis Recent Fever Within 48 Hours Sepsis New/Unexplained Change in Mental Status Sepsis Action Taken by Nursing 05/16/20 23:31 05/17/20 00:01 Temperature Temperature Source Pulse Rate 115 H 89 Pulse Rate from SpO2 Sensor 123 H 95 H Respiratory Rate 14 14 Respiratory Effort / Characteristics Respiratory Depth Respiratory Pattern Blood Pressure 115/74 132/94 Blood Pressure Mean 82 105 Blood Pressure Position Pulse Oximetry 97 98 Oxygen Delivery Method Room Air Room Air Sepsis Recent Fever Within 48 Hours Sepsis New/Unexplained Change in Mental Status Sepsis Action Taken by Nursing Physical Exam GENERAL: She is oriented to person, place, and time. She appears well-developed and well-nourished. She does not appear distressed. HENT: Exam performed. -Head: Normocephalic and atraumatic. -Right Ear: External ear normal. No mastoid tenderness. -Left Ear: External ear normal. No mastoid tenderness. -Mouth/Throat: The oropharynx is clear and moist. No trismus in the jaw. No dental abscesses or uvula swelling. No oropharyngeal exudate or tonsillar abscesses. EYES: Conjunctivae and EOM are normal. Pupils are equal, round, and reactive to light. Right eye exhibits no discharge. Left eye exhibits no discharge. No scleral icterus. NECK: Normal range of motion. Neck supple. No JVD present. No spinous process tenderness present. No carotid bruit present. No rigidity. No tracheal deviation and normal range of motion present. No Brudzinski's sign and no Kernig's sign noted. CV: Tachycardic rate, irregular rhythm, normal heart sounds and intact distal pulses. There is no peripheral edema. Palpable radial pulses bue. PULM/CHEST: Effort normal and breath sounds normal. No respiratory distress. No stridor. She has no wheezes. She has no rales. -Chest Wall: She exhibits no tenderness. ABD: The abdomen is soft. Bowel sounds are normal. She has no distension. No mass is present. There is no tenderness. There is no rebound, no guarding, no Blanco's sign and no tenderness at McBurney's point. Rovsig negative MUSC/SKEL: Normal range of motion. There is no peripheral edema, tenderness or deformity. LYMPH: No cervical adenopathy. NEURO: She is alert and oriented to person, place, and time. She has normal strength. No cranial nerve deficit or sensory deficit. Coordination and gait normal. GCS eye subscore is 4. GCS verbal subscore is 5. GCS motor subscore is 6. Cerebellar tests wnl. SKIN: Skin is warm and dry. She is not diaphoretic. PSYCH: She has a normal mood and affect. Behavior is normal. Judgment and thought content normal. Course Course 2107: The patient was evaluated in room C4. A complete history and physical exam was performed. Cardiac monitoring: An order was placed for continuous cardiac monitoring. The monitor shows a rate of 100-120 with atrial fibrillation rhythm 2300: Vital signs stable. Patient remains in atrial fibrillation with a rate between 90-120. Patient continues to deny any chest pain or difficulty breathing. She states she feels better after IV fluids. Labs and imaging within normal limits with the exception of potassium 3.1. Potassium replaced in the emergency department. Given the new onset atrial fibrillation, the patient will be admitted to the hospital service. Dr. Ho notified. Administered Medications Discontinued Medications Sodium Chloride (Nss 1000ml) 500 mls @ 999 mls/hr IV .Q31M ONE Stop: 05/16/20 21:47 Last Infusion: 05/16/20 22:23 Dose: 0 mls/hr Documented by: [id number] Admin: 05/16/20 21:45 Dose: 999 mls/hr Documented by: [id number] Ioversol (Optiray 320 125ml) 120 ml IV ONCE ONE Stop: 05/16/20 22:34 Last Admin: 05/16/20 22:33 Dose: 120 ml Documented by: [id number] Potassium Chloride (Potassium Chloride 10 Meq Tabcr) 40 meq PO NOW STA Stop: 05/17/20 00:15 Last Admin: 05/17/20 00:23 Dose: 40 meq Documented by: [id number] Medical Decision Making Laboratory Data Result diagrams: 05/16/20 21:12 05/16/20 21:12 Lab Results 05/16/20 05/16/20 05/16/20 Range/Units 21:12 21:12 21:12 WBC 6.32 (4.8-10.8) K/uL RBC 4.01 L (4.2-5.4) M/uL Hgb 13.4 (12.0-16.0) g/dL Hct 40.0 (37-47) % MCV 99.8 (80-100) fL MCH 33.4 (25-34) pg MCHC 33.5 (32-36) g/dL RDW Std Deviation 45.9 (36.4-46.3) fL RDW Coeff of Lilli 12.5 (11.5-14.5) % Plt Count 234 (130-400) K/uL MPV 10.1 (7.4-10.4) fL Immature Gran % (Auto) 0.3 % Neut % (Auto) 56.9 % Lymph % (Auto) 33.2 % [place] % (Auto) 7.0 % Eos % (Auto) 2.4 % Baso % (Auto) 0.2 % Neut # (Auto) 3.60 (1.4-6.5) K/uL Lymph # (Auto) 2.10 (1.2-3.4) K/uL [place] # (Auto) 0.44 (0.11-0.59) K/uL Eos # (Auto) 0.15 (0-0.5) K/uL Baso # (Auto) 0.01 (0-0.2) K/uL Immature Gran # (Auto) 0.02 (0.00-0.02) K/uL PT 10.5 (9.0-12.0) Seconds INR 1.0 (0.9-1.1) APTT 22.2 (21.0-31.0) Seconds PTT Ratio 0.8 Sodium 142 (136-145) mmol/L Potassium 3.1 L (3.5-5.1) mmol/L Chloride 107 (98-107) mmol/L Carbon Dioxide 27 (21-32) mmol/L Anion Gap 8.0 (3-11) BUN 22 H (7-18) mg/dl Creatinine 0.92 (0.6-1.2) mg/dl Est Cr Clr Drug Dosing 46.9 ml/min Est GFR ( Amer) 66.3 Est GFR (Non-Af Amer) 57.2 BUN/Creatinine Ratio 24.1 H (10-20) Glucose 96 (70-99) mg/dl Calcium 9.5 (8.5-10.1) mg/dl Magnesium 2.2 (1.8-2.4) mg/dl Total Bilirubin 0.3 (0.2-1) mg/dl Direct Bilirubin 0.1 (0-0.2) mg/dl AST 28 (15-37) U/L ALT 28 (12-78) U/L Alkaline Phosphatase 73 (45-117) U/L Troponin I < 0.015 (0-0.045) ng/ml Total Protein 6.9 (6.4-8.2) gm/dl Albumin 3.7 (3.4-5.0) gm/dl Lipase 152 (73-393) U/L Specimen Hemolysis Ethyl Alcohol mg/dL (0-3) mg/dl 05/16/20 Range/Units 21:36 WBC (4.8-10.8) K/uL RBC (4.2-5.4) M/uL Hgb (12.0-16.0) g/dL Hct (37-47) % MCV (80-100) fL MCH (25-34) pg MCHC (32-36) g/dL RDW Std Deviation (36.4-46.3) fL RDW Coeff of Lilli (11.5-14.5) % Plt Count (130-400) K/uL MPV (7.4-10.4) fL Immature Gran % (Auto) % Neut % (Auto) % Lymph % (Auto) % [place] % (Auto) % Eos % (Auto) % Baso % (Auto) % Neut # (Auto) (1.4-6.5) K/uL Lymph # (Auto) (1.2-3.4) K/uL [place] # (Auto) (0.11-0.59) K/uL Eos # (Auto) (0-0.5) K/uL Baso # (Auto) (0-0.2) K/uL Immature Gran # (Auto) (0.00-0.02) K/uL PT (9.0-12.0) Seconds INR (0.9-1.1) APTT (21.0-31.0) Seconds PTT Ratio Sodium (136-145) mmol/L Potassium (3.5-5.1) mmol/L Chloride (98-107) mmol/L Carbon Dioxide (21-32) mmol/L Anion Gap (3-11) BUN (7-18) mg/dl Creatinine (0.6-1.2) mg/dl Est Cr Clr Drug Dosing ml/min Est GFR ( Amer) Est GFR (Non-Af Amer) BUN/Creatinine Ratio (10-20) Glucose (70-99) mg/dl Calcium (8.5-10.1) mg/dl Magnesium (1.8-2.4) mg/dl Total Bilirubin (0.2-1) mg/dl Direct Bilirubin (0-0.2) mg/dl AST (15-37) U/L ALT (12-78) U/L Alkaline Phosphatase (45-117) U/L Troponin I (0-0.045) ng/ml Total Protein (6.4-8.2) gm/dl Albumin (3.4-5.0) gm/dl Lipase (73-393) U/L Specimen Hemolysis Ethyl Alcohol mg/dL < 3.0 (0-3) mg/dl Imaging Data My Impression: Chest x-ray: Chest x-ray negative. Airway clear. No pneumothorax. No consolidation. No cardiomegaly or cephalization.. No free air under the diaphragm. No fractures of the skeletal structures. Radiologist's Impression: Preliminary Findings Only See Final Report For Complete Findings CTA CHEST: No pulmonary embolus. No consolidation Cardiomegaly. Small hiatal hernia. Small low-attenuation foci in the liver. Old granulomatous disease. Radiologist: Galo Fernandes M.D. Study ready at 22:36 and initial results transmitted at 22:40 Preliminary Findings Only See Final Report For Complete Findings CT HEAD: No ICH, mass effect or edema. No evidence of acute cortical stroke. Radiologist: Galo Fernandes M.D. Study ready at 22:34 and initial results transmitted at 22:37 ECG Data Indication: + syncope Rate (beats per minute): 114 Rhythm: + atrial fibrillation ECG Intervals/blocks: + Normal QRS and + Normal QT-c ECG ST segments: + Normal ST segments MDM Narrative 8: The patient was evaluated in room C4. A complete history and physical exam was performed. Cardiac monitoring: An order was placed for continuous cardiac monitoring. The monitor shows a rate of 100-120 with atrial fibrillation rhythm 2300: Vital signs stable. Patient remains in atrial fibrillation with a rate between 90-120. Patient continues to deny any chest pain or difficulty breathing. She states she feels better after IV fluids. Labs and imaging within normal limits with the exception of potassium 3.1. Potassium replaced in the emergency department. Given the new onset atrial fibrillation, the patient will be admitted to the hospital service. Dr. Ho notified. Impression & Plan Atrial fibrillation Discharge Plan Visit Data Chief Complaint: Syncope Stated Complaint: SYNCOPE/DIZZY/NAUSEA w/VOMITING ED Provider: Adam Hernandez Discharge Problem: Atrial fibrillation Patient Disposition: Being Evaluated by Hospitalist Forms Stand Alone Forms: [facility] Prescriptions Prescriptions: No Action losartan 50 mg tablet 50 mg PO DAILY RF: 0 acetaminophen [Tylenol] 325 mg Tablet 650 mg PO QID PRN (Reason: Pain) RF: 0 amiloride-hydrochlorothiazide 5-50 mg tablet 1 tab PO DAILY RF: 0 simvastatin 20 mg tablet 20 mg PO DAILY RF: 0 levothyroxine [Synthroid] 150 mcg tablet 150 mcg PO DAILY RF: 0 multivitamin Tablet 1 tab PO DAILY RF: 0 aspirin [Aspir-Low] 81 mg Tablet,Delayed Release (Dr/Ec) 81 mg PO DAILY RF: 0 loratadine [Claritin] 10 mg Tablet 10 mg PO DAILY PRN (Reason: allergies) RF: 0 cholecalciferol (vitamin D3) [Vitamin D3] 50 mcg (2,000 unit) Capsule 50 mcg PO DAILY RF: 0 Referrals Referrals: Nate Rosen MD [Primary Care Provider] -
[2020-05-17] MEDS ORDERED: ACETAMINOPHEN 325 MG TAB PO PRN (02:04)
[2020-05-17] MEDS ORDERED: HEPARIN SODIUM/DEXTROSE 25,000 UNITS/500 ML BAG IV SCH (02:04)
[2020-05-17] MEDS ORDERED: Heparin IV Standard *NO* Bolus STA (02:04)
--- NOTE | 2020-05-17 02:34 | Billing Data ---
Date of Service May 17, 2020 Coding Level of Care Code 44119 Initial Inpt Care Lvl 3
[2020-05-17 02:49] LABS: Thyroid Stimulating Hormone 0.633 uIu/ml (0.300-4.500)
[2020-05-17] MEDS ORDERED: LEVOTHYROXINE SODIUM 150 MCG TABLET PO SCH (06:30)
[2020-05-17 06:35] LABS: Basophils # (auto) 0.01 K/uL (0-0.2); Basophils % (auto) 0.1 %; Eosinophils # (auto) 0.07 K/uL (0-0.5); Eosinophils % (auto) 0.8 %; Hematocrit (blood only) 37.6 % (37-47); Hemoglobin 12.5 g/dL (12.0-16.0); Immature Granulocytes # (auto) 0.01 K/uL (0.00-0.02); Immature Granulocytes % (auto) 0.1 %; Lymphocytes # (auto) 1.97 K/uL (1.2-3.4); Lymphocytes % (auto) 22.9 %; Mean Corpuscular Hemoglobin 33.2 pg (25-34); Mean Corpuscular Hgb Conc 33.2 g/dL (32-36); Mean Platelet Volume 10.4 fL (7.4-10.4); Monocytes # (auto) 0.54 K/uL (0.11-0.59); Monocytes % (auto) 6.3 %; Neutrophils # (auto) 6.02 K/uL (1.4-6.5); Neutrophils % (auto) 69.8 %; Platelet Count 245 K/uL (130-400); RDW Coefficient of Variation 12.7 % (11.5-14.5); RDW Standard Deviation 45.7 fL (36.4-46.3); Red Blood Count 3.76 M/uL (4.2-5.4); White Blood Count 8.62 K/uL (4.8-10.8)
[2020-05-17 06:57] LABS: Partial Thromboplastin Ratio 1.7
[2020-05-17 07:03] LABS: Albumin Level 3.3 gm/dl (3.4-5.0); BUN Creatinine Ratio 27.8 (10-20); Calcium 9.3 mg/dl (8.5-10.1); Creatinine Clr Calc Pharmacy 60.9 ml/min; Est GFR (African American) 92.2; Est GFR (Non-African American) 79.6; Potassium 3.5 mmol/L (3.5-5.1)
[2020-05-17 07:06] LABS: Albumin Globulin Ratio 1.2 (0.9-2); Bilirubin,Total 0.4 mg/dl (0.2-1); Globulin 2.7 gm/dl (2.5-4.0)
--- NOTE | 2020-05-17 07:12 | CT Scan Report ---
HEAD CT NONCONTRAST CT DOSE: 1124.63 mGy.cm HISTORY: And could be. Vomiting. TECHNIQUE: Multiaxial CT images of the head were performed without the use of intravenous contrast. A utomated exposure control was utilized for this study. A dose lowering technique was utilized adheri ng to the principles of ALARA. Comparison: Head CT 12/30/2014. Findings: The paranasal sinuses and mastoid air cells are clear. The calvarium and skull base are int act. The ventricles and sulci are within normal limits. There is no mass, hematoma, midline shift, or acute infarct. Impression: No acute intracranial abnormality. ACT 112: Negative or not required by law. Electronically signed by: Mikhail Hernandez M.D. 05/17/2020 7:11 AM
[2020-05-17 07:14] LABS: Partial Thromboplastin Time 48.6 Seconds (21.0-31.0)
--- NOTE | 2020-05-17 07:20 | CT Scan Report ---
CT ANGIOGRAPHY OF THE CHEST, PULMONARY EMBOLUS PROTOCOL CLINICAL HISTORY: Syncope. Vomiting. Evaluate for pulmonary embolus. COMPARISON STUDY: Chest radiograph September 03, 2016 and May 16, 2020. TECHNIQUE: Following IV administration of 120 mL of Optiray-320, helical axial images of the chest we re obtained utilizing the pulmonary embolus protocol. Maximal intensity projections and sagittal and coronal reformats were viewed on an independent 3D workstation. IV contrast was administered withou t complication. Automated exposure control was utilized for the study. A dose lowering technique wa s utilized adhering to the principles of ALARA. FINDINGS: No pulmonary emboli are identified. There is mild dilatation of the central pulmonary mayela speedy. Moderate cardiomegaly and coronary artery calcification is present. No pericardial effusion. A small hiatal hernia is present. The central airways are patent. No consolidation is identified. There are calcified mediastinal and right hilar lymph nodes. There are calcified granulomas within the rig ht lower lobe. No pneumothorax or pleural effusion is noted. There are calcified granulomas within th e spleen. IMPRESSION: 1. No pulmonary emboli identified. 2. No consolidation. 3. Moderate cardiomegaly and coronary artery calcification. ACT 112: Negative or not required by law. Electronically signed by: Jose Elias Beverly M.D. 05/17/2020 7:18 AM
--- NOTE | 2020-05-17 07:20 | XRay Report ---
XR chest 1V portable CLINICAL HISTORY: Syncope and vomiting. COMPARISON STUDY: Chest radiograph September 03, 2016. FINDINGS: Lung volumes are normal. Lungs are clear. There is no pneumothorax or pleural effusion. Car diac size is stable. Mediastinal contours are normal. There is no evidence for pulmonary edema. IMPRESSION: No acute cardiopulmonary findings. ACT 112: Negative or not required by law. Electronically signed by: Jose Elias Beverly M.D. 05/17/2020 7:19 AM
--- NOTE | 2020-05-17 07:41 | Ultrasound Report ---
BILATERAL CAROTID DOPPLER STUDY HISTORY: syncope COMPARISON: None. TECHNIQUE: Real-time, grayscale, and color Doppler sonography of the carotid arteries was performed. Imaging reviewed in the transverse and longitudinal planes. All measurements were calculated based on NASCET criteria. FINDINGS: Antegrade flow is seen in the bilateral vertebral arteries. The brachial pressures are asymmetric measuring 176/83 on the left and 140/43 on the right. However, the subclavian arteries are patent. Mild calcified plaque within the bilateral carotid bifurcations. The peak systolic velocity within the right ICA is 58 cm/s. The right systolic ratio is 0.7. The peak systolic velocity within the left ICA is 85 cm/s. The left systolic ratio is 1.1. IMPRESSION: No hemodynamically significant stenosis seen within the carotid arteries. ACT 112: Negative or not required by law. Electronically signed by: Mikhail Hernandez M.D. 05/17/2020 7:40 AM
[2020-05-17 08:30] LABS: Partial Thromboplastin Time 55.5 Seconds (21.0-31.0)
[2020-05-17] MEDS ORDERED: CHOLECALCIFEROL 1,000 UNITS 25 MCG TAB PO SCH (09:00)
[2020-05-17] MEDS ORDERED: LOSARTAN POTASSIUM 50 MG TAB PO SCH (09:00)
[2020-05-17] MEDS ORDERED: ASPIRIN 81 MG ECTAB PO SCH (09:00)
[2020-05-17] MEDS ORDERED: SIMVASTATIN 20 MG TAB PO SCH (09:00)
--- NOTE | 2020-05-17 09:05 | XCELERA ---
[id number]
[2020-05-17] MEDS ORDERED: APIXABAN 5 MG TABLET PO SCH (13:15)
--- NOTE | 2020-05-17 13:18 | Med Student Discharge Summary ---
Date of Service May 17, 2020 Admission HPI Per Admitting Provider Kandi is an 84-year-old female with a history of vertigo, hypertension, and degenerative joint disease of the knee who presents with new onset A. fib after a syncopal event while having a wine with her daughter. "Kenia" reports she was having dinner with her daughter and she felt completely fine. She reports her daughter left and Kenia was cleaning the pots and pans and the next thing she knew her neighbors (who are a doctor and nurse) were standing over here. She did not feel lightheaded or dizzy and did have any sensation of presyncope. When she woke up she reports she felt fairly normal after just a few minutes, but was told she an episode of emesis while passed out. Not sure of how much she threw up. Her neighbor (Dr. Hodge) insisted she stay lying down until EMS could evaluate her. Once the EMS services arrived she had an additional episode of emesis but didn't think she felt nauseus. She was not feeling faint or lightheaded. No chest pain, chest pressure. Thinks she might have had palpitations at the time, sensation was occuring while in the hospital bu thas since passed. Denies shortness of breath. Denies fevers, chills, sweats No recent illness Denies current nausea, constipation, diarrhea, and abdominal pain. She reports she has passed out before, but has been many years since last episode. Was never found to have an abnormal heart rhythm and never found a cause. She reports her last episode of syncope was ~40 years ago. Medications: Reviewed with pt. Medical Hx: HTN, hypothyroidism. DJD. No hx CAD/stroke SHX: reviewed Allergies: NKDA Social: Lives at home with her . Noone sick at home. Denies tobacco use, social alcohol 5 days per week 1 glass with dinner, denies recreational drug use. CODE STATUS: Full Code Admission Exam (Per Admitting) Constitutional well developed and well nourished Eyes PERRL, conjunctivae normal, anicteric sclerae ENMT external ear and nose normal, oropharynx normal Neck trachea midline, no thyromegaly Respiratory normal respiratory effort, lungs clear to auscultation Cardiovascular RRR, no murmur, no edema Chest (Breasts) normal inspection/palpation of breasts Gastrointestinal (Abdomen) normal bowel sounds, soft, nontender, no hepatosplenomegaly Musculoskeletal no cyanosis or clubbing, extremities motor strength 5/5 Skin no rashes, warm and dry Neurologic patellar DTR's 2+ bilat, sensation intact Psychiatric A+Ox3, euthymic affect Genitourinary no vaginal lesions, no adnexal mass Lymphatic no cervical or axillary lymphadenopathy Discharge Data Consultations 05/16/20 23:00 ED Decision to Admit Stat Hospital Course (1) Syncope: Kandi is an 84-year-old female with a history of vertigo, hypertension, and degenerative joint disease of the knee who presents with new onset A. fib after a syncopal event . New atrial fibrillation EKG on ED admission shows A. fib with RVR, rate tracing from 114-125bpm - No prior history of A. fib, previous EKGs NSR [id number] 4 points - No PE on CTA Spontaneous conversion while in the emergency department. New first-degree heart block observed. Telemetry monitoring shows no new events since ED. Regular rate at time of assessment on discharge. - Started on heparin gtt, no bolus - No history of bleeding, GI bleeds, or bleeding diathesis Recommend long-term anticoagulation, no contraindications to DOAC tx, started on Eliquis 5mg BID on discharge -Also started on metoprolol 25mg daily for rate control. -Consider Holter monitor in outpatient, as patient did not have pre-syncopal symptoms prior to presentation to ED. Syncope First episode of syncope EKG with new arrhythmia (A. fib) CThead: No acute findings, no ICH/signs of stroke/hemorrhage. CTA chest: No pulmonary emboli. No cardiomegaly. CXR: No acute findings [place] syncope score: Cannot place and low risk category due to new EKG change TTE: normal LV function, no wall motion abnormalities - Carotid doppler: no hemodynamically significant stenosis Hypothyroidism - Prior hyperthyroid post radiation treatment in 1977 with subsequent hypothyroidism - TSH normal 0.633, not likely to be cause of Afib - Continue home dose levothyroxine Hypertension Continue amiloride/hydrochlorothiazide Continue aspirin 81 mg daily Continue losartan -metoprolol added as above for AFib Hyperlipidemia Simvastatin 20 mg DJD Continue Tylenol 650 mg p.o. as needed Dispo: home with care by /daughter (2) Hypertension: (3) Afib: (4) DJD (degenerative joint disease) of knee: Discharge Plan Discharge Items Patient Disposition: Home - Self-Care Reason For Visit: SYNCOPE, NEW AFIB Discharge Diagnosis: Atrial Fibrillation Condition on Discharge: Good Activity: Per Instructions section Non-emergency contact: Primary Care Provider and Disability Insurance Hearing Officer Call non-emergency contact if: you have any medication questions and your symptoms worsen Follow-up/Referrals: Nate Rosen MD [Primary Care Provider] - 05/24/20 10:10 am (1-2 weeks following discharge) Diet: Regular Addtl Attending Provider Instructions: You were admitted to the hospital for passing out, and you were found to have a an abnormal heart rhythm called atrial fibrillation. You were started on an anticoagulant medication called Eliquis. You were also started on a medicine to decrease your heart rate and keep you in a normal rhythm called metoprolol. During your hospital stay, you had a CT scan of your lungs which did not show a lung blockage. You also had a CT scan of your head which did not show any stroke or injury to your head following your fall. You had an ultrasound of your carotid neck arteries which did not show any blockages. Your heart rate has returned to normal and you were felt to be safe for discharge. Your medications were changed as follows: 1) Please start Metoprolol 25 milligrams once daily. 2) Please start Eliquis 5 milligrams every 12 hours (morning and evening). 3) Your other home medications were not changed. You will continue those medications as listed below. These new medications were sent to the [facility] on [address] in [place]. You should start these medications tomorrow. Please follow up with your PCP, Dr. Montes, within 1-2 weeks following discharge. She can get you set up for a Holter Monitor, which can monitor your heart rate to see if you go back into irregular rhythm at home. If you have any further episodes of passing out, or have chest pain or trouble breathing, come back to the ER for evaluation. Pending Studies at Discharge: No Stand-Alone Forms: My [employer], Smoking Cessation Medications and DC Order Prescriptions: New metoprolol succinate 25 mg Tablet Extended Release 24 Hr 25 mg PO QAM 30 Days Qty: 30 RF: 0 Eliquis 5 mg Tablet 5 mg PO BID 30 Days Qty: 60 RF: 0 Continued losartan 50 mg tablet 50 mg PO DAILY RF: 0 acetaminophen [Tylenol] 325 mg Tablet 650 mg PO QID PRN (Reason: Pain) RF: 0 amiloride-hydrochlorothiazide 5-50 mg tablet 1 tab PO DAILY RF: 0 simvastatin 20 mg tablet 20 mg PO DAILY RF: 0 levothyroxine [Synthroid] 150 mcg tablet 150 mcg PO DAILY RF: 0 multivitamin Tablet 1 tab PO DAILY RF: 0 aspirin 81 mg Tablet,Delayed Release (Dr/Ec) 81 mg PO DAILY RF: 0 loratadine [Claritin] 10 mg Tablet 10 mg PO DAILY PRN (Reason: allergies) RF: 0 cholecalciferol (vitamin D3) [Vitamin D3] 50 mcg (2,000 unit) Capsule 50 mcg PO DAILY RF: 0 Discharge Orders: Discharge Order (Routine); Ordered 05/17/20 Ordered By: Deena Ruiz Admission Data Admit Date/Time: 05/17/20 00:43 Attending Provider: Angela Szymanski Admit Provider: Bernardo Titus Primary Care Provider: Nate Rosen Other Providers: Hetal Ho Other Interventions: Discharge Summary Assessment (RN) Last Done: 05/17/20 13:33 Supervising Attestation Medical Student Supervision Note: I was personally present during medical student patient encounter and independently interviewed and examined the patient and verified the hernandez history and physical, reviewed labs and image studies, discussed the case with Bessy Sanders and agree with the findings and care plan. Weakness and Syncope with New onset A fib with RVR - converted to NSR within hour. Home on low dose b laurent and anticoagulation. CHADSVASC - 4 Consider event monitor as outpatient. Time Spent Midlevel see attending attestation
--- NOTE | 2020-05-17 14:22 | Electrocardiogram Report ---
Test Reason : Blood Pressure : / mmHG Vent. Rate : 114 BPM Atrial Rate : 136 BPM P-R Int : 000 ms QRS Dur : 086 ms QT Int : 344 ms P-R-T Axes : 000 066 080 degrees QTc Int : 474 ms Atrial fibrillation with rapid ventricular response Nonspecific ST abnormality Abnormal ECG When compared with ECG of 04-SEP-2016 06:37, Atrial fibrillation has replaced Sinus rhythm Vent. rate has increased BY 44 BPM Confirmed by Quinton Pruett ([id number]) on 05/17/2020 2:22:32 PM Referred By: Erich Hodge Confirmed By:Quinton Pruett
--- NOTE | 2020-05-17 14:27 | Electrocardiogram Report ---
Test Reason : Blood Pressure : / mmHG Vent. Rate : 091 BPM Atrial Rate : 091 BPM P-R Int : 218 ms QRS Dur : 082 ms QT Int : 378 ms P-R-T Axes : 048 056 074 degrees QTc Int : 464 ms Sinus rhythm with 1st degree A-V block Otherwise normal ECG When compared with ECG of 16-MAY-2020 21:16, (unconfirmed) Sinus rhythm has replaced Atrial fibrillation Confirmed by Quinton Pruett ([id number]) on 05/17/2020 2:27:37 PM Referred By: Erich Hodge Confirmed By:Quinton Pruett
[2020-05-18] MEDS ORDERED: METOPROLOL SUCC 25MG EXT REL TAB PO SCH (09:00)
== END 2020-05-17 15:10 | disposition home or self-care (01) ==
LOC: ED 21:05 → SUATTDRO 05-17 00:43 → 2N 05-17 00:43 → INTOOBSV 05-17 00:43 → 2N 05-17 01:29

== ENCOUNTER 2021-11-08 00:35 | Observation (INO) ==
[2021-11-08 01:14] LABS: Hemoglobin 11.9 g/dl (12.0-16.0)
[2021-11-08 01:15] LABS: Basophils # (auto) 0.01 K/uL (0-0.2); Basophils % (auto) 0.2 %; Eosinophils # (auto) 0.09 K/uL (0-0.50); Eosinophils % (auto) 1.9 %; Immature Granulocytes # (auto) 0.02 K/uL (0.00-0.02); Immature Granulocytes % (auto) 0.4 %; Lymphocytes # (auto) 1.33 K/uL (1.2-3.4); Lymphocytes % (auto) 27.7 %; Mean Corpuscular Hemoglobin 33.1 pg (25.0-34.0); Mean Corpuscular Hgb Conc 33.1 g/dL (32.0-36.0); Mean Platelet Volume 10.1 fL (9.4-12.3); Monocytes # (auto) 0.36 K/uL (0.24-0.82); Monocytes % (auto) 7.5 %; Neutrophils # (auto) 2.99 K/uL (1.4-6.5); Neutrophils % (auto) 62.3 %; Platelet Count 211 K/uL (130-400); RDW Coefficient of Variation 11.9 % (11.5-14.5); RDW Standard Deviation 43.4 fL (36.4-46.3)
[2021-11-08 01:33] LABS: Albumin Globulin Ratio 1.7 (0.9-2); BUN Creatinine Ratio 40.5 (10-20); Bilirubin,Total 0.3 mg/dl (0.2-1.0); Calcium 9.6 mg/dl (8.5-10.1); Creatinine Clr Calc Pharmacy 35.1 ml/min; Est GFR (African American) 49.4 ml/min; Est GFR (Non-African American) 42.6 ml/min; Globulin 2.4 gm/dl (2.5-4.0); Magnesium 2.1 mg/dl (1.7-2.4); Potassium 3.7 mmol/L (3.5-5.1); Total Protein 6.4 gm/dl (6.0-8.3)
--- NOTE | 2021-11-08 01:48 | Emergency Department Note ---
History of Present Illness General Chief complaint: Syncope Time Seen by Provider: 11/08/21 01:08 History of Present Illness This 86-year-old presents to the ER complaining of syncope who hit her head and is on Eliquis Location: Generalized Quality: Syncope Severity: Brief Duration: Tonight Timing: Tonight Context: Patient passed out and the called EMS Modifying factors: better with nothing; worse with nothing Patient states she just got done finishing dinner and was about her to feed the cats and collapsed. Patient states that she had a cold all week. Patient states she feels fine now. She is on Eliquis for A. fib. Patient denies chest pain, dyspnea, abdominal pain, neck pain, headache, numbness, tingling. She believes she hit her head. Home Medications Medication Instructions Recorded Confirmed Type acetaminophen 325 mg tablet 650 mg PO QID PRN 05/16/20 11/08/21 History (Tylenol) amiloride 5 mg-hydrochlorothiazide 1 tab PO DAILY 05/16/20 11/08/21 History 50 mg tablet cholecalciferol (vitamin D3) 50 50 mcg PO DAILY 05/16/20 11/08/21 History mcg (2,000 unit) capsule (Vitamin D3) loratadine 10 mg tablet (Claritin) 10 mg PO DAILY PRN 05/16/20 11/08/21 History losartan 50 mg tablet 50 mg PO DAILY 05/16/20 11/08/21 History multivitamin 1 tab PO DAILY 05/16/20 11/08/21 History simvastatin 20 mg tablet 20 mg PO DAILY 05/16/20 11/08/21 History apixaban 5 mg tablet (Eliquis) 5 mg PO BID 11/08/21 11/08/21 History levothyroxine 137 mcg tablet 137 mcg PO DAILY 11/08/21 11/08/21 History (Synthroid) Allergies Allergy/AdvReac Type Severity Reaction Status Date / Time adhesive Allergy Unknown RED SKIN Verified 11/08/21 02:15 IRRITATION WITH SOME TAPES amlodipine Allergy Unknown LEGS Verified 11/08/21 02:15 SWELLING lisinopril Allergy Unknown lips Verified 11/08/21 02:15 swelling chlorhexidine AdvReac Intermediate Itching-PT Verified 11/08/21 02:15 DENIES ANY PROBLEMS Past Med/Surg History Medical History Hypertension Surgical History No pertinent past surgical history Social History Smoking Status: Never smoker Tobacco Type: Cigarettes Hx Alcohol Use: Yes Alcohol type: wine Hx Substance Use: No Preferred Language: Uzbek Communication Ability: Effective Mental Health Unit Lead Psychologist Required: No Beliefs That Will Affect Care: None Current Living Situation: Spouse Feels Safe at Home: Yes Assistive Devices: None Review of Systems A total of 10 systems reviewed and were otherwise negative Physical Exam Vital Signs Vital Signs - 24 hr 11/08/21 00:41 11/08/21 00:52 11/08/21 00:54 Temperature 36.7 C Temperature Source Oral Pulse Rate 69 Pulse Rate [Finger] Pulse Rhythm Regular Pulse Rhythm [Finger] Pulse Strength Normal Pulse Strength [Finger] Respiratory Rate 18 Respiratory Effort / Characteristics Non-Labored Spontaneous Respiratory Depth Normal Respiratory Pattern Regular Blood Pressure 121/61 Blood Pressure [Right Arm] Blood Pressure Mean 81 Blood Pressure Mean [Right Arm] Blood Pressure Position Sitting Blood Pressure Position [Right Arm] Pulse Oximetry 98 Oxygen Delivery Method Room Air Room Air Room Air Sepsis Recent Fever Within 48 Hours No Sepsis New/Unexplained Change in Mental Status No Sepsis Action Taken by Nursing No Action Required 11/08/21 01:05 11/08/21 02:31 Temperature Temperature Source Pulse Rate Pulse Rate [Finger] 62 Pulse Rhythm Pulse Rhythm [Finger] Regular Pulse Strength Pulse Strength [Finger] Normal Respiratory Rate 14 Respiratory Effort / Characteristics Non-Labored Spontaneous Respiratory Depth Normal Respiratory Pattern Blood Pressure Blood Pressure [Right Arm] 121/61 Blood Pressure Mean Blood Pressure Mean [Right Arm] 81 Blood Pressure Position Blood Pressure Position [Right Arm] Sitting Pulse Oximetry 98 100 Oxygen Delivery Method Room Air Room Air Sepsis Recent Fever Within 48 Hours Sepsis New/Unexplained Change in Mental Status Sepsis Action Taken by Nursing VITALS: Vitals are noted on the nurse's note and reviewed by myself. Vital signs stable. GENERAL: Pleasant patient, in no acute distress, nondiaphoretic, well-developed well-nourished. SKIN: The skin was without rashes, erythema, edema, or bruising. There is no tenting of the skin. Capillary reflex less than 2 seconds. HEAD: Normocephalic atraumatic. EARS: External auditory canals clear, EYES: Pupils equal round and reactive to light and accommodation. Conjunctivae without injection, sclerae without icterus. Extraocular movements intact. NOSE: Patent, turbinates without inflammation or discharge. MOUTH: Mucous membranes moist. Pharynx without erythema or exudate. Uvula midline. Airway patent. Tongue does not deviate. NECK: Supple without nuchal rigidity. No lymphadenopathy. No thyromegaly. Cervical spine is nontender. No JVD. HEART: Regular rate and rhythm LUNGS: Clear to auscultation bilaterally without wheezes, rales or rhonchi. No retractions or accessory muscle use. ABDOMEN: Positive bowel sounds x 4. Normal tympanic percussion. Soft, nontender, without masses or organomegaly. Blanco sign negative. No guarding or rebound tenderness. No CVA tenderness MUSCULOSKELETAL: No muscle atrophy, erythema, or edema noted. NEURO: Patient was alert and oriented to person place and time. Normal sensation to light and sharp touch. No focal neurological deficits. Course Administered Medications Discontinued Medications Sodium Chloride (Nss 1000ml) 500 mls @ 999 mls/hr IV .Q31M ONE Stop: 11/08/21 02:26 Last Infusion: 11/08/21 02:58 Dose: 0 mls/hr Documented by: [id number] Admin: 11/08/21 02:02 Dose: 999 mls/hr Documented by: [id number] Medical Decision Making Medical Records Attestation: I reviewed the patient's medical records. Home Medications Current Medication List: was personally reviewed by me Laboratory Data Attestation: I reviewed the patient's lab results. Result diagrams: 11/08/21 00:57 11/08/21 00:57 Lab Results 11/08/21 11/08/21 11/08/21 Range/Units 00:57 00:57 00:57 WBC 4.80 (4.8-10.8) K/ul RBC 3.60 L (3.93-5.22) M/uL Hgb 11.9 L (12.0-16.0) g/dl Hct 36.0 (34.1-44.9) % MCV 100.0 (80.0-100.0) fL MCH 33.1 (25.0-34.0) pg MCHC 33.1 (32.0-36.0) g/dL RDW Std Deviation 43.4 (36.4-46.3) fL RDW Coeff of Lilli 11.9 (11.5-14.5) % Plt Count 211 (130-400) K/uL MPV 10.1 (9.4-12.3) fL Immature Gran % (Auto) 0.4 % Neut % (Auto) 62.3 % Lymph % (Auto) 27.7 % Buchanan % (Auto) 7.5 % Eos % (Auto) 1.9 % Baso % (Auto) 0.2 % Neut # (Auto) 2.99 (1.4-6.5) K/uL Lymph # (Auto) 1.33 (1.2-3.4) K/uL Buchanan # (Auto) 0.36 (0.24-0.82) K/uL Eos # (Auto) 0.09 (0-0.50) K/uL Baso # (Auto) 0.01 (0-0.2) K/uL Immature Gran # (Auto) 0.02 (0.00-0.02) K/uL Sodium 139 (136-145) mmol/L Potassium 3.7 (3.5-5.1) mmol/L Chloride 101 (98-107) mmol/L Carbon Dioxide 30 (21-32) mmol/L Anion Gap 8 (3-11) BUN 47 H (6-23) mg/dl Creatinine 1.16 (0.6-1.2) mg/dl Est Cr Clr Drug Dosing 35.1 ml/min Est GFR ( Amer) 49.4 ml/min Est GFR (Non-Af Amer) 42.6 ml/min BUN/Creatinine Ratio 40.5 H (10-20) Glucose 114 H (70-99(Fasting)) mg/dl Calcium 9.6 (8.5-10.1) mg/dl Magnesium 2.1 (1.7-2.4) mg/dl Total Bilirubin 0.3 (0.2-1.0) mg/dl AST 19 (13-39) U/L ALT 14 (7-52) U/L Alkaline Phosphatase 58 (34-104) U/L Troponin I High Sens (0-14) pg/ml Total Protein 6.4 (6.0-8.3) gm/dl Albumin 4.0 (3.4-5.0) gm/dl Globulin 2.4 L (2.5-4.0) gm/dl Albumin/Globulin Ratio 1.7 (0.9-2) TSH 3.911 (0.300-4.500) uIu/ml SARS-CoV-2 (PCR) (Negative) 11/08/21 11/08/21 Range/Units 00:57 01:22 WBC (4.8-10.8) K/ul RBC (3.93-5.22) M/uL Hgb (12.0-16.0) g/dl Hct (34.1-44.9) % MCV (80.0-100.0) fL MCH (25.0-34.0) pg MCHC (32.0-36.0) g/dL RDW Std Deviation (36.4-46.3) fL RDW Coeff of Lilli (11.5-14.5) % Plt Count (130-400) K/uL MPV (9.4-12.3) fL Immature Gran % (Auto) % Neut % (Auto) % Lymph % (Auto) % Buchanan % (Auto) % Eos % (Auto) % Baso % (Auto) % Neut # (Auto) (1.4-6.5) K/uL Lymph # (Auto) (1.2-3.4) K/uL Buchanan # (Auto) (0.24-0.82) K/uL Eos # (Auto) (0-0.50) K/uL Baso # (Auto) (0-0.2) K/uL Immature Gran # (Auto) (0.00-0.02) K/uL Sodium (136-145) mmol/L Potassium (3.5-5.1) mmol/L Chloride (98-107) mmol/L Carbon Dioxide (21-32) mmol/L Anion Gap (3-11) BUN (6-23) mg/dl Creatinine (0.6-1.2) mg/dl Est Cr Clr Drug Dosing ml/min Est GFR ( Amer) ml/min Est GFR (Non-Af Amer) ml/min BUN/Creatinine Ratio (10-20) Glucose (70-99(Fasting)) mg/dl Calcium (8.5-10.1) mg/dl Magnesium (1.7-2.4) mg/dl Total Bilirubin (0.2-1.0) mg/dl AST (13-39) U/L ALT (7-52) U/L Alkaline Phosphatase (34-104) U/L Troponin I High Sens 4.2 (0-14) pg/ml Total Protein (6.0-8.3) gm/dl Albumin (3.4-5.0) gm/dl Globulin (2.5-4.0) gm/dl Albumin/Globulin Ratio (0.9-2) TSH (0.300-4.500) uIu/ml SARS-CoV-2 (PCR) POSITIVE A* (Negative) Imaging Data Attestation: I personally reviewed and interpreted this imaging study as follows: MDM Narrative Prior records/ancillary studies reviewed. Triage Nursing notes reviewed. Additional history obtained from EMS. The patient's history was concerning for syncope. Differential diagnosis: Etiologies such as vasovagal event, infection, hypoglycemia, electrolyte abnormalities, cardiac sources, intracerebral event, toxicologic, neurologic, as well as others were entertained. Physical examination: As above ER treatment provided: IV hydration with normal saline On reassessment the patient felt better. An order was placed for continuous cardiac monitoring. The monitor shows a rate of 60-100 with a sinus rhythm. Diagnostics interpretation by me: ECG: EKG ordered for syncope EKG: Normal sinus, first-degree AV block, T wave inversion in V2, and aVL. Impression normal sinus rhythm with a first-degree AV block with T wave invers ions interpreted by myself I think arrhythmia is unlikely. EKG shows no interval abnormalities such as QT prolongation or WPW. There are no findings to suggest Brugada syndrome. Cardiac monitoring in the emergency department reveals no tachycardic or bradycardic dysrhythmia. Hypertrophic cardiomyopathy was considered but there are no clear historical elements pointing toward this. EKG is not suggestive. The QRS voltage is not extremely large and there are no suggestive Q waves. The labs revealed positive COVID, elevated BUN Imaging studies: Preliminary Findings Only See Final Report For Complete Findings CT HEAD: No acute intracranial abnormality. Radiologist: Maxime Jiménez MD Preliminary Findings Only See Final Report For Complete Findings CT C SPINE: No acute fracture. Severe degenerative spondylosis. Radiologist: Maxime Jiménez MD This x-ray with no acute consolidation, pneumothorax or free air per my interpretation Consultation: A consultation was placed with the hospitalist. The case was discussed and diagnostics were reviewed. The patient was evaluated in the ER for further treatment. This appears to be consistent with syncope with mild dehydration and COVID. Imaging was negative. Patient is on Eliquis and hit her head. EKG is normal. Negative troponin. Positive COVID. She has been sick all week. Patient will be evaluated for possible admission for the syncopal episode. Patient is agreeable. By the evaluation outlined above emergent etiologies such as hypoglycemia, electrolyte abnormalities, intracerebral event, toxicologic, as well as others were deemed relatively unlikely. The pt informed about the findings as listed above. All questions were answered and pleased with the treatment. The chart was completed utilizing [employer] voice recognition software. Grammatical errors, random word insertions, pronoun errors, and incomplete sentences are an occassional consequence of this system due to software limitations, ambient noise, and hardware issues. Any formal questions or concerns about the content, text, or information contained within the body of this dictation should be directly addressed to the physician computer assistant for clarification. Impression & Plan Syncope, COVID, Head injury Discharge Plan Visit Data Chief Complaint: Syncope ED Provider: Westley Garcia. ED Midlevel Provider: Becky Hopkins Discharge Problem: Syncope, COVID, Head injury Patient Disposition: Admitted As Inpatient Condition: Good Forms Stand Alone Forms: [facility] [place] mobif[employer] Prescriptions Prescriptions: No Action losartan 50 mg tablet 50 mg PO DAILY RF: 0 acetaminophen [Tylenol] 325 mg Tablet 650 mg PO QID PRN (Reason: Pain) RF: 0 amiloride-hydrochlorothiazide 5-50 mg tablet 1 tab PO DAILY RF: 0 simvastatin 20 mg tablet 20 mg PO DAILY RF: 0 multivitamin Tablet 1 tab PO DAILY RF: 0 loratadine [Claritin] 10 mg Tablet 10 mg PO DAILY PRN (Reason: allergies) RF: 0 cholecalciferol (vitamin D3) [Vitamin D3] 50 mcg (2,000 unit) Capsule 50 mcg PO DAILY RF: 0 levothyroxine [Synthroid] 137 mcg tablet 137 mcg PO DAILY RF: 0 Eliquis 5 mg tablet 5 mg PO BID RF: 0 Referrals Referrals: PCP,NO [Primary Care Provider] - Discharge Problem: Syncope Qualifiers: Syncope type: unspecified Qualified Code(s): R55 - Syncope and collapse
[2021-11-08] MEDS ORDERED: SODIUM CHLORIDE 0.9% 1000ML 500 ML IV ONE (01:56)
--- NOTE | 2021-11-08 02:51 | Emergency Department Note ---
ED Visit Note 2:50 AM, patient was seen at bedside with the JUSTYNA. Patient had a syncopal episode. Patient is positive for COVID. On my examination patient is resting in no distress normal pulse oximetry no respiratory distress speaking in full sentences. Patient was given IV fluids, patient will be admitted for syncope, COVID .
--- NOTE | 2021-11-08 03:07 | History & Physical Report ---
Date of Service November 08, 2021 Assessment & Plan (1) Syncope: Plan: 86 year old female w/ HTN, afib on Eliquis, DJD, vertigo, and current covid-19 who presents after a syncopal episode and subsequent fall while walking in her kitchen. - covid pos and has had URI symptoms x 1 week; may be from dehydration vs vasovagal - lack of prodrome would be more concerning for arrhythmia. previous admission 05/2020 for syncope workup did not determine etiology - check orthostatic vitals - monitor on telemetry overnight - echo in AM - maintenance fluids (2) Head injury: Plan: - head CT in ED negative. denies headache. unsure if hit head (3) COVID: Plan: - mild symptoms. saturating 97 on room air. - no medication treatment indicated; reviewed hospital policy - covid isolation precautions (4) Afib: Plan: - continue home regimen. paroxysmal. currently in sinus this admission (5) Hypertension: Plan: - continue home regimen Plan: FEN/GI: HH. NSS 100mL/hr ppx: continue home Eliquis dispo: med tele code: full History of Present Illness Chief Complaint: syncope and fall Primary Care Provider: NO PCP 86 year old female w/ HTN, afib on Eliquis, DJD, vertigo, and current covid-19 who presents after a syncopal episode and subsequent fall while walking in her kitchen. There was no prodrome other than extreme fatigue just proceeding. She was admitted for a similar syncopal episode in 05/2020 and during that admission was diagnosed w/ new-onset afib. Patient does note that many years ago, she had a few syncopal episodes w/ more distinct prodromal symptoms. She does not remember the full details of the fall and woke up on the floor. She scraped her right knee but does not know if she hit her head. No headache. No seizure-like activity. She has had 1 week of URI symptoms including sore throat, rhinorrhea (clear), nonproductive cough, and sneezing. She has had her first covid booster. She daughter is sick w/ similar symptoms. Symptom onset: 6 days ago. She had a family gathering the weenend of 11/05/21. ED course: NSS bolus Allergies Allergy/AdvReac Type Severity Reaction Status Date / Time adhesive Allergy Unknown RED SKIN Verified 11/08/21 02:15 IRRITATION WITH SOME TAPES amlodipine Allergy Unknown LEGS Verified 11/08/21 02:15 SWELLING lisinopril Allergy Unknown lips Verified 11/08/21 02:15 swelling chlorhexidine AdvReac Intermediate Itching-PT Verified 11/08/21 02:15 DENIES ANY PROBLEMS Home Medications Medication Instructions Recorded Confirmed Type acetaminophen 325 mg tablet 650 mg PO QID PRN 05/16/20 11/08/21 History (Tylenol) amiloride 5 mg-hydrochlorothiazide 1 tab PO DAILY 05/16/20 11/08/21 History 50 mg tablet cholecalciferol (vitamin D3) 50 50 mcg PO DAILY 05/16/20 11/08/21 History mcg (2,000 unit) capsule (Vitamin D3) loratadine 10 mg tablet (Claritin) 10 mg PO DAILY PRN 05/16/20 11/08/21 History losartan 50 mg tablet 50 mg PO DAILY 05/16/20 11/08/21 History multivitamin 1 tab PO DAILY 05/16/20 11/08/21 History simvastatin 20 mg tablet 20 mg PO DAILY 05/16/20 11/08/21 History apixaban 5 mg tablet (Eliquis) 5 mg PO BID 11/08/21 11/08/21 History levothyroxine 137 mcg tablet 137 mcg PO DAILY 11/08/21 11/08/21 History (Synthroid) Past Med/Surg History Medical History Hypertension Surgical History No pertinent past surgical history Social History (Updated 11/08/21 @ 06:17 by Bismark Wasserman MD) Smoking Status: Never smoker Tobacco Type: Cigarettes Second Hand Exposure: No; Hx Alcohol Use: Yes Alcohol type: wine Hx Substance Use: No Preferred Language: [place] Communication Ability: Effective Psych Specialist Required: No Beliefs That Will Affect Care: None Current Living Situation: Spouse Feels Safe at Home: Yes Assistive Devices: None Review of Systems Review of Systems: All systems reviewed & are unremarkable except as noted in HPI & below Constitutional: Denies fever, chills, weight change Eyes: Denies blurry vision, vision changes ENT: Denies sore throat, sinus pain Cardiovascular: Denies chest pain, palpitations Respiratory: Denies shortness of breath Gastrointestinal: Denies abdominal pain, nausea, vomiting, constipation, diarrhea Genitourinary: Denies urinary symptoms including dysuria Musculoskeletal: Denies weakness, muscle aches/pain, joint aches/pain Neurological: Denies headache, numbness, tingling, focal weakness Physical Exam Physical Exam: General: Grossly A&Ox4. NAD. Cooperative. HEENT: Atraumatic, normocephalic. EOMI Pulm: CTAB. -wheezes, -rales, -rhonchi. No respiratory distress. Cardiac: RRR, -mrg. Radial pulses intact and symmetrical. No LE edema. Abdominal: Nontender, nondistended, soft. Msk: Moving all extrem. Results & Data Results & Data ([facility]) Vital Signs (Past 12 Hours) Vital Signs Temp Pulse Pulse Resp BP BP Pulse Ox 11/08/21 02:31 62 14 121/61 100 11/08/21 01:05 98 11/08/21 00:54 98 11/08/21 00:41 36.7 C 69 18 121/61 Laboratory Results Cardiac Enzymes 11/08/21 11/08/21 Range/Units 00:57 00:57 AST 19 (13-39) U/L Troponin I High Sens 4.2 (0-14) pg/ml CBC 11/08/21 Range/Units 00:57 WBC 4.80 (4.8-10.8) K/ul RBC 3.60 L (3.93-5.22) M/uL Hgb 11.9 L (12.0-16.0) g/dl Hct 36.0 (34.1-44.9) % Plt Count 211 (130-400) K/uL Neut # (Auto) 2.99 (1.4-6.5) K/uL Lymph # (Auto) 1.33 (1.2-3.4) K/uL [place] # (Auto) 0.36 (0.24-0.82) K/uL Eos # (Auto) 0.09 (0-0.50) K/uL Baso # (Auto) 0.01 (0-0.2) K/uL Comprehensive Metabolic Panel 11/08/21 Range/Units 00:57 Sodium 139 (136-145) mmol/L Potassium 3.7 (3.5-5.1) mmol/L Chloride 101 (98-107) mmol/L Carbon Dioxide 30 (21-32) mmol/L BUN 47 H (6-23) mg/dl Creatinine 1.16 (0.6-1.2) mg/dl Glucose 114 H (70-99(Fasting)) mg/dl Calcium 9.6 (8.5-10.1) mg/dl AST 19 (13-39) U/L ALT 14 (7-52) U/L Alkaline Phosphatase 58 (34-104) U/L Total Protein 6.4 (6.0-8.3) gm/dl Albumin 4.0 (3.4-5.0) gm/dl Intake and Output 11/07/21 11/07/21 11/08/21 14:59 22:59 06:59 Intake Total 500 / 500 Balance 500 / 500 Intake: IV 500 / 500 Sodium Chloride 0.9% 1000ML 500 500 / 500 ml @ 999 mls/hr IV .Q31M ONE Rx#:[id number] Other: Weight 77.7 kg Weight Measurement Method Built in [facility] Patient Weight 11/08/21 06:59 Weight 77.7 kg Diagnostic Findings statrad preliminary findings CT head: No acute intracranial abnormality. CT C spine: No acute fracture. Severe degenerative spondylosis. cxr: per my read, no acute abnormalities ECG Additional Comments: NSR 66. 1st deg AV block. nonspecific st-t changes. Normal axis and qtc. Code Status & VTE Plan Code Status full VTE Prophylaxis Plan VTE Prophylaxis will be ordered: Yes Supervising Physician Co-Signing Physician Notes Attending addendum: I have physically seen this patient, have supervised the medical residents activities, and agree with the H&P unless as otherwise noted. Assessment and Plan: Syncope- Patient with syncopal episode and fall while walking in her kitchen The patient will be admitted to telemetry for serial cardiac enzymes, serial EKG's, cardiac rhythm monitoring and a 2-D echocardiogram with Dopplers. IV fluids Main concern is that of arrhythmia Orthostatic vital signs COVID-19 infection- No respiratory or head neck symptoms No suggestion of contribution to syncope at this time, but is suggestion of renal sufficiency, may do a trial of dexamethasone Paroxysmal atrial fibrillation/hypertension- Continue apixaban, amiloride/HCTZ and losartan Hyperlipidemia- Continue simvastatin Check a past lipid panel Hypothyroidism- Continue levothyroxine Remaining orders and notations as noted Resident Activity Tracking Resident Involvement: Resident Care Provided Care Provided: Adult Hospital Medicine (1) Syncope Syncope type: unspecified Qualified Code(s): R55 - Syncope and collapse
[2021-11-08 06:27] LABS: Appearance Urine Clear (Clear); Bacteria Urine Automated Negative (Negative); Bilirubin Urine Negative (Negative); Blood Urine 2+ (Negative); Color Urine Yellow; Glucose Urine UA Negative (Negative); Ketones Urine Negative (Negative); Leukocyte Esterase Urine Trace (Negative); Nitrite Urine Negative (Negative); Protein Urine Negative (Negative); RBC Urine Automated 0-4 /hpf (0-4); Specific Gravity Urine 1.014 (1.000-1.030); Urobilinogen Urine Negative (Negative); pH Urine 5.5 (4.5-7.5)
--- NOTE | 2021-11-08 07:14 | CT Scan Report ---
HEAD CT NONCONTRAST CT DOSE: 954.15 mGy.cm HISTORY: syncope, HI, on DOAC TECHNIQUE: Multiaxial CT images of the head were performed without the use of intravenous contrast. A utomated exposure control was utilized for this study. A dose lowering technique was utilized adheri ng to the principles of ALARA. Comparison: Head CT 05/16/2020. Findings: The paranasal sinuses and mastoid air cells are clear. The calvarium and skull base are int act. The ventricles and sulci are within normal limits. There is no mass, hematoma, midline shift, or acute infarct. Impression: No acute intracranial abnormality. ACT 112: Negative or not required by law. Electronically signed by: Mikhail Hernandez M.D. 11/08/2021 7:13 AM
--- NOTE | 2021-11-08 07:17 | CT Scan Report ---
CERVICAL SPINE CT CT DOSE: HISTORY: Neck pain. syncope, HI, on DOAC TECHNIQUE: Multiaxial CT images of the cervical spine were performed and reformatted in the sagittal and coronal plane without the use of contrast. A dose lowering technique was utilized adhering to th e principles of ALARA. COMPARISON: None. FINDINGS: No fractures. No subluxation. Prevertebral soft tissues and the C1-C2 interval are intact. No pneumothorax. Posterior fusion defect at C1. Severe disc space narrowing with large anterior osteo phytes from C3 through C7. Moderate to severe facet degenerative changes are noted. IMPRESSION: No fractures within the cervical spine. ACT 112: Negative or not required by law. Electronically signed by: Mikhail Hernandez M.D. 11/08/2021 7:15 AM
--- NOTE | 2021-11-08 07:17 | XRay Report ---
XR chest 2V PA/lateral HISTORY: 86 years-old Female cough acute cough with syncope COMPARISON: Chest radiograph 05/16/2020 TECHNIQUE: PA and lateral views of the chest FINDINGS: The cardiomediastinal and hilar silhouettes are within normal limits. Atherosclerosis of the aorta. M ild right hemidiaphragmatic elevation. Scattered calcified pulmonary granulomata. Calcified right hil ar lymph nodes. No pneumothorax, pleural effusion, airspace consolidation or overt pulmonary edema. D egenerative changes of the shoulders and spine. Mid thoracic dextroscoliosis. IMPRESSION: No acute process. ACT 112: Negative or not required by law. The above report was generated using voice recognition software. It may contain grammatical, syntax o r spelling errors. Electronically signed by: Maxwell Whitley M.D. 11/08/2021 7:15 AM
[2021-11-08] MEDS: SODIUM CHLORIDE 0.9% 1000ML 1,000 ML IV SCH ×2 (08:49→17:47)
[2021-11-08] MEDS ORDERED: ONDANSETRON INJ 2 MG/ML 2 ML VIAL IV PRN (08:56)
[2021-11-08] MEDS ORDERED: LORATADINE 10 MG TAB PO PRN (08:56)
[2021-11-08] MEDS ORDERED: LOSARTAN POTASSIUM 50 MG TAB PO SCH (09:00)
[2021-11-08] MEDS: APIXABAN 5 MG TABLET PO SCH ×2 (10:48→20:58)
[2021-11-08] MEDS: LEVOTHYROXINE SODIUM 137 MCG TABLET PO SCH (10:48)
[2021-11-08] MEDS: SIMVASTATIN 20 MG TAB PO SCH (10:49)
--- NOTE | 2021-11-08 11:05 | Ultrasound Report ---
BILATERAL CAROTID DOPPLER STUDY HISTORY: syncope COMPARISON: Carotid Doppler 05/17/2020. TECHNIQUE: Real-time, grayscale, and color Doppler sonography of the carotid arteries was performed. Imaging reviewed in the transverse and longitudinal planes. All measurements were calculated based on NASCET criteria. FINDINGS: Antegrade flow is seen in the bilateral vertebral arteries. The brachial pressures are hemodynamically similar. Mild calcified plaque within the bilateral carotid bifurcations. The peak systolic velocity within the right ICA is 77 cm/s. The right systolic ratio is 1.1. The peak systolic velocity within the left ICA is 81 cm/s. The left systolic ratio is 1.1. IMPRESSION: No hemodynamically significant stenosis seen within the carotid arteries. ACT 112: Negative or not required by law. Electronically signed by: Mikhail Hernandez M.D. 11/08/2021 11:03 AM
--- NOTE | 2021-11-08 15:02 | History & Physical Bridge Note ---
Date of Service November 08, 2021 History & Physical Bridge Note I have reviewed the History & Physical and in the interval since the performance of the History & Physical I have noted the following changes of clinical significance: pt admitted after MN on 11/08 with syncopal event (also incidentally + for covid-19), lacked prodrome of symptoms prior. Hospitalized in May 2020 with syncope and found to have new onset afib. No other significant findings on work up at that time. Does not appear she had a cardiac event monitor following that hospitalization. Only change made to current hospitalization plan was to add carotid dopplers and echo (which was stated to be ordered but was never done). Reviewed orthostatics which are negative. Continue IVF, hold Amiloride/HCTZ. Regarding her covid diagnosis, mild sx, does not meet any criteria for treatment with Decadron or Remdesivir.
--- NOTE | 2021-11-08 16:58 | XCELERA ---
[id number]
--- NOTE | 2021-11-08 22:02 | Billing Data ---
Date of Service November 08, 2021 Coding Level of Care Code INT OBSERVATION CARE 70M LVL 3
[2021-11-09] MEDS ORDERED: SODIUM CHLORIDE 0.9% 1000ML 500 ML IV ONE (04:15)
--- NOTE | 2021-11-09 05:46 | Electrocardiogram Report ---
Test Reason : Blood Pressure : / mmHG Vent. Rate : 066 BPM Atrial Rate : 066 BPM P-R Int : 226 ms QRS Dur : 084 ms QT Int : 412 ms P-R-T Axes : 055 055 080 degrees QTc Int : 431 ms Sinus rhythm with 1st degree A-V block Low voltage QRS Nonspecific T wave abnormality Abnormal ECG When compared with ECG of 17-MAY-2020 00:06, No significant change Confirmed by Rush Mora ([id number]) on 11/09/2021 5:46:24 AM Referred By: REFERRED SELF Confirmed By:Rush Mora
[2021-11-09] MEDS: APIXABAN 5 MG TABLET PO SCH (07:58)
[2021-11-09] MEDS: SIMVASTATIN 20 MG TAB PO SCH (07:58)
[2021-11-09] MEDS: LEVOTHYROXINE SODIUM 137 MCG TABLET PO SCH (07:58)
--- NOTE | 2021-11-09 11:36 | Discharge Summary ---
Date of Service November 09, 2021 Admission HPI Per Admitting Provider 86 year old female w/ HTN, afib on Eliquis, DJD, vertigo, and current covid-19 who presents after a syncopal episode and subsequent fall while walking in her kitchen. There was no prodrome other than extreme fatigue just proceeding. She was admitted for a similar syncopal episode in 05/2020 and during that admission was diagnosed w/ new-onset afib. Patient does note that many years ago, she had a few syncopal episodes w/ more distinct prodromal symptoms. She does not remember the full details of the fall and woke up on the floor. She scraped her right knee but does not know if she hit her head. No headache. No seizure-like activity. She has had 1 week of URI symptoms including sore throat, rhinorrhea (clear), nonproductive cough, and sneezing. She has had her first covid booster. She daughter is sick w/ similar symptoms. Symptom onset: 6 days ago. She had a family gathering the weenend of 11/05/21. ED course: NSS bolus Principal Diagnosis Syncope-dehydration v vasovagal episode Discharge Exam GEN: 86 yo WD/WN WF who appears younger than stated age. NAD. LUNGS: Clear to auscultation bilaterally. No W/R/R. CARDIOVASCULAR: Regular rate and rhythm. No M/G/R. No JVD. ABDOMEN: Soft, non-tender and non-distended. BS normoactive x 4 quad. EXTREMITIES: No edema. Non-tender. Peripheral pulses +2/4. NEUROLOGIC: A&O x3. Nonfocal. PSYCHIATRIC: Cooperative. Appropriate mood and affect. SKIN: Warm, dry, intact. No rashes or lesions. Discharge Data Allergies Allergy/AdvReac Type Severity Reaction Status Date / Time adhesive Allergy Unknown RED SKIN Verified 11/08/21 02:15 IRRITATION WITH SOME TAPES amlodipine Allergy Unknown LEGS Verified 11/08/21 02:15 SWELLING lisinopril Allergy Unknown lips Verified 11/08/21 02:15 swelling chlorhexidine AdvReac Intermediate Itching-PT Verified 11/08/21 02:15 DENIES ANY PROBLEMS Consultations 11/08/21 02:56 ED Decision to Admit Stat Ordered Studies Cervical Spine CT 11/08/21 01:[address] DOSE: HISTORY: Neck pain. syncope, HI, on DOAC TECHNIQUE: Multiaxial CT images of the cervical spine were performed and reformatted in the sagittal and coronal plane without the use of contrast. A dose lowering technique was utilized adhering to the principles of ALARA. COMPARISON: None. FINDINGS: No fractures. No subluxation. Prevertebral soft tissues and the C1-C2 interval are intact. No pneumothorax. Posterior fusion defect at C1. Severe disc space narrowing with large anterior osteophytes from C3 through C7. Moderate to severe facet degenerative changes are noted. IMPRESSION: No fractures within the cervical spine. ACT 112: Negative or not required by law. Electronically signed by: Mikhail Hernandez M.D. 11/08/2021 7:15 AM Chest X-Ray 11/08/21 01:14 XR chest 2V PA/lateral HISTORY: 86 years-old Female cough acute cough with syncope COMPARISON: Chest radiograph 05/16/2020 TECHNIQUE: PA and lateral views of the chest FINDINGS: The cardiomediastinal and hilar silhouettes are within normal limits. Atherosclerosis of the aorta. Mild right hemidiaphragmatic elevation. Scattered calcified pulmonary granulomata. Calcified right hilar lymph nodes. No pneumothorax, pleural effusion, airspace consolidation or overt pulmonary edema. Degenerative changes of the shoulders and spine. Mid thoracic dextroscoliosis. IMPRESSION: No acute process. ACT 112: Negative or not required by law. The above report was generated using voice recognition software. It may contain grammatical, syntax or spelling errors. Electronically signed by: Maxwell Whitley M.D. 11/08/2021 7:[address] 11/08/21 01:[address] DOSE: 954.15 mGy.cm HISTORY: syncope, HI, on DOAC TECHNIQUE: Multiaxial CT images of the head were performed without the use of intravenous contrast. Automated exposure control was utilized for this study. A dose lowering technique was utilized adhering to the principles of ALARA. Comparison: Head CT 05/16/2020. Findings: The paranasal sinuses and mastoid air cells are clear. The calvarium and skull base are intact. The ventricles and sulci are within normal limits. There is no mass, hematoma, midline shift, or acute infarct. Impression: No acute intracranial abnormality. ACT 112: Negative or not required by law. Electronically signed by: Mikhail Hernandez M.D. 11/08/2021 7:13 AM Carotid Doppler Study 11/08/21 09:37 BILATERAL CAROTID DOPPLER STUDY HISTORY: syncope COMPARISON: Carotid Doppler 05/17/2020. TECHNIQUE: Real-time, grayscale, and color Doppler sonography of the carotid arteries was performed. Imaging reviewed in the transverse and longitudinal planes. All measurements were calculated based on NASCET criteria. FINDINGS: Antegrade flow is seen in the bilateral vertebral arteries. The brachial pressures are hemodynamically similar. Mild calcified plaque within the bilateral carotid bifurcations. The peak systolic velocity within the right ICA is 77 cm/s. The right systolic ratio is 1.1. The peak systolic velocity within the left ICA is 81 cm/s. The left systolic ratio is 1.1. IMPRESSION: No hemodynamically significant stenosis seen within the carotid arteries. ACT 112: Negative or not required by law. Electronically signed by: Mikhail Hernandez M.D. 11/08/2021 11:03 AM ECHOCARDIOGRAM 11/08/21 1. Normal left ventricular size and systolic function. EF 60-65%. No regional wall motion abnormalities. No left ventricular hypertrophy. 2. No significant valvular stenosis/regurgitation 3. Normal estimated right ventricular systolic pressure. 4. No significant change from prior study on 05/17/2020 Hospital Course (1) Syncope: 86 year old female w/ HTN, afib on Eliquis, DJD, vertigo, and current covid-19 who presents after a syncopal episode and subsequent fall while walking in her kitchen. - covid pos and has had URI symptoms x 1 week; may be from dehydration vs vasovagal - lack of prodrome would be more concerning for arrhythmia. previous admission 05/2020 for syncope workup did not determine etiology - orthostatic vitals signs were checked and WNL - monitor on telemetry overnight - no arrhythmias - echo obtained, no significant abnormalities noted - maintenance fluids provided x 2L - no further episodes of syncope (2) Head injury: - head CT in ED negative. denies headache. unsure if hit head (3) COVID: - mild symptoms. saturating 98 on room air. - no medication treatment indicated; reviewed hospital policy - advise following cdc guidelines on isolation (4) Afib: - continue home regimen. paroxysmal. currently in sinus this admission (5) Hypertension: - continue home regimen At this time, pt is medically and hemodynamically stable for discharge home. Has her scheduled cardiology f/u at the end of this month, advised her to keep this appointment as scheduled. Advise pcp f/u within 1 week of discharge. Plan d/w Dr. Rand Mohan who has also see and evaluated this patient and is in agreement. Total Time Total Time Spent Total Time Spent (In Minutes): <30 minutes Discharge Plan Discharge Items Patient Disposition: Home - Self-Care Reason For Visit: SYNCOPE Discharge Diagnosis: passed out Condition on Discharge: Good Activity: Resume your previous activity Non-emergency contact: Primary Care Provider and Forestry Engineer Call non-emergency contact if: you have any medication questions Follow-up/Referrals: PCP,CHANTAL [Primary Care Provider] - Diet: Regular Addtl Attending Provider Instructions: You were hospitalized due to passing out at home. Incidentally, when you came to the hospital, you were found to be positive for COVID-19. However, you have very mild symptoms and do not require any medical treatment for COVID (including antivirals or steroids). Regarding your episode of passing out, it is suspected that this may be due to either mild dehydration in the setting of your illness. It also could be due to your body overreacted to something outside of your control causing your heart rate and blood pressure to drop. You had an ultrasound of your heart which did not demonstrate any significant abnormalities. You have not had any irregular heart rhythms noted on the heart monitor since you have been here. You also had an ultrasound of your carotid arteries which did not demonstrate any narrowing or blockages. You were hydrated with fluids and at this time, since you have been feeling well, you will be discharged home. As you mentioned, you have an appointment coming up at the end of this month with your patient resource specialist. I would recommend that you keep this appointment. They could consider ordering a cardiac event monitor for you to wear for 30 days. It is advised that you follow up with your family doctor within 1 week of discharge. If you have any questions following your discharge, feel free to contact the nonemergency number listed on your discharge paperwork. In the event of a medical emergency, call 911. Pending Studies at Discharge: No Stand-Alone Forms: My [employer], Smoking Cessation Medications and DC Order Prescriptions: Continued losartan 50 mg tablet 50 mg PO DAILY RF: 0 acetaminophen [Tylenol] 325 mg Tablet 650 mg PO QID PRN (Reason: Pain) RF: 0 amiloride-hydrochlorothiazide 5-50 mg tablet 1 tab PO DAILY RF: 0 simvastatin 20 mg tablet 20 mg PO DAILY RF: 0 multivitamin Tablet 1 tab PO DAILY RF: 0 loratadine [Claritin] 10 mg Tablet 10 mg PO DAILY PRN (Reason: allergies) RF: 0 cholecalciferol (vitamin D3) [Vitamin D3] 50 mcg (2,000 unit) Capsule 50 mcg PO DAILY RF: 0 levothyroxine [Synthroid] 137 mcg tablet 137 mcg PO DAILY RF: 0 Eliquis 5 mg tablet 5 mg PO BID RF: 0 Discharge Orders: Discharge Order (Routine); Ordered 11/09/21 Ordered By: Roseanna Givens/Other Patient Handouts: Causes of Syncope Admission Data Admit Date/Time: 11/08/21 05:52 Attending Provider: Chapo Mohan Admit Provider: Bismark Wasserman Primary Care Provider: PCP,CHANTAL Other Providers: Micheal Mary Other Interventions: Discharge Summary Assessment (RN) Last Done: 11/09/21 12:05 Supervising Physician Co-Signing Physician Notes I supervised Roseanna Hendrickson PA-C on the care of this patient. I interviewed and examined the patient independently of her. The plan is as written in her note except for any following changes/exceptions: None No major issues today. No further syncope and no symptoms. No arrhythmias on telemetry. Echo normal without valvular issues. Follows with Dr. Sun. After last episode in 05/2020, she had a 30-day Holter without any signs of arrhythmia. She has an Apple Watch without any indication of event. I encouraged her to follow up with her cardiology team to see if they have any further work- up, but at this time, it seems like a recurrent vasovagal event. Coding Level of Care Code 23903 OBS Care - Discharge Diagnoses Syncope R55 Syncope type: unspecified Head injury S09.90XA COVID U07.1 Afib I48.91 Hypertension I10
== END 2021-11-09 13:03 | disposition home or self-care (01) ==
LOC: EDINP 00:35 → ED 00:35 → SUATTDRO 05:52 → 2N 17:12